=== PATIENT | female | born 1940 | race Hispanic/Latino ===

== ENCOUNTER 2019-07-10 11:11 | Inpatient (IN) | payer MEDICARE, OTHER ==
[2019-07-10] MEDS ORDERED: FUROSEMIDE 40 MG/4 ML INJ ONE (11:16)
[2019-07-10] MEDS ORDERED: FUROSEMIDE 40 MG/4 ML INJ IV ONE (11:19)
[2019-07-10] MEDS ORDERED: dilTIAZem 25 MG/5 ML INJ ONE (11:36)
[2019-07-10] MEDS ORDERED: dilTIAZem 25 MG/5 ML INJ IV ONE (11:39)
[2019-07-10] MEDS ORDERED: AMIODARONE 150 MG/3 ML INJ IV ONE (11:41)
[2019-07-10] MEDS ORDERED: AMIODARONE 150 MG in DEXTROSE 5% IN WATER 97 ML IV ONE (11:41)
--- NOTE | 2019-07-10 11:52 | Emergency Department Report ---
ED Shortness of Breath HPI - General Stated Complaint: PARTH Time Seen by Provider: 07/10/19 11:17 - History of Present Illness Initial Comments: This is a 78 year old female who is largely unknown to this facility. Rising respiratory distress. Apparently she called the ambulance while her family was out. Paramedics found the patient to have a pulse oximetry of 82% on room air and struggling to breathe. Her blood pressure was somewhat elevated but her glucose was less than 200. They gave her nitroglycerin but not Lasix and an albuterol treatment. They placed her on CPAP and transported her to the nearest facility. On arrival the patient can answer directed questions by nodding her head but cannot speak in full sentences. She is on Coumadin for atrial fibrillation. She has a history of congestive heart failure. She is status post bilateral mastectomies. She cannot tell me if the cancer has affected her lungs or spreading on my initial encounter. History is quite limited. She states to negative concerning acute chest pain. Later when the family arrives they state that she had shortness of breath since last night. Apparently she had some yellow sputum this morning. There is no fever or chills observed. She has no history of venous thromboembolism. The daughter who is a nurse believes the patient would not want to be intubated. The patient was placed on BiPAP on her arrival. He was given Lasix IV. Complaint: shortness of breath -: hour(s) Known History Of: congestive heart failure, other (atrial fibrillation on Coumadin) Context: recent URI (possibly) Associated Symptoms: denies other symptoms (Limited history) - Related Data Allergies Allergy/AdvReac Type Severity Reaction Status Date / Time meperidine [From Demerol] Allergy Anaphylaxis Verified 07/10/19 12:26 Penicillins Allergy Anaphylaxis Verified 07/10/19 12:25 ED Review of Systems ROS: Stated complaint: PARTH Other details as noted in HPI Comment: Unobtainable due to pts medical conditions (largely not) ED Past Medical Hx - Past Medical History Previous Medical History?: Yes Hx Congestive Heart Failure: Yes Hx Diabetes: Yes Additional medical history: Atrial fibrillation. Family thinks the breast cancer has not spread. No history of prior intubation except for surgery. - Social History Smoking Status: Unknown if ever smoked Substance Use Type: None ED Physical Exam - General Limitations: Altered Mental Status General appearance: alert, other (respiratory distress) - Head Head exam: Present: atraumatic, normocephalic - Eye Eye exam: Present: normal appearance. Absent: scleral icterus - ENT ENT exam: Present: mucous membranes moist - Neck Neck exam: Present: normal inspection. Absent: meningismus - Respiratory Respiratory exam: Present: respiratory distress, rales (bilateral noising), accessory muscle use - Cardiovascular Cardiovascular Exam: Present: tachycardia, irregular rhythm. Absent: systolic murmur, diastolic murmur, rubs, gallop - GI/Abdominal GI/Abdominal exam: Present: soft, normal bowel sounds. Absent: distended, tenderness, guarding, rebound - Extremities Exam Extremities exam: Present: other (symmetrical ankle edema family states is normal secondary to previous fracture) - Back Exam Back exam: Present: normal inspection - Neurological Exam Neurological exam: Present: altered (probably secondary to respiratory distress), CN II-XII intact (grossly). Absent: motor sensory deficit (exam limited) - Psychiatric Psychiatric exam: Present: anxious, flat affect - Skin Skin exam: Present: warm, dry, intact, normal color. Absent: rash ED Course Vital Signs 07/10/19 07/10/19 07/10/19 11:30 11:31 11:34 Temperature 98.4 F Pulse Rate 123 H 128 H 132 H Respiratory 46 H 44 H 33 H Rate Blood Pressure 173/75 143/72 147/43 Blood Pressure 173/75 [Left] O2 Sat by Pulse 97 98 100 Oximetry 07/10/19 07/10/19 07/10/19 11:40 11:45 11:50 Temperature Pulse Rate 116 H Respiratory 27 H 46 H Rate Blood Pressure 159/66 147/43 Blood Pressure [Left] O2 Sat by Pulse 98 94 Oximetry 07/10/19 07/10/19 07/10/19 11:59 12:01 12:31 Temperature Pulse Rate 116 H 99 H 94 H Respiratory 27 H 46 H 31 H Rate Blood Pressure 147/43 147/43 147/43 Blood Pressure [Left] O2 Sat by Pulse 98 99 100 Oximetry - Reevaluation(s) Reevaluation #1: The patient is continued on noninvasive positive pressure ventilation. She is showing some improvement. Attempts at rate control with diltiazem and amiodarone. Family states that beta blockers have previously worsened the patient's condition and that she is not on them now. She takes digoxin they state. Is no known history of renal insufficiency. 07/10/19 11:54 Reevaluation #2: It should be making good progress with the above meds, BiPAP. Arterial blood gas within acceptable limits. Work of breathing has improved. The patient is not anticipated at this point. 07/10/19 12:15 Reevaluation #3: PE twelve-lead EKG shows persistent atrial fibrillation now with rate improvement at approximately 100. Occasional aberrant conducted beats. LDH with typical associated repolarization abnormality and axis. Cannot exclude but does not suggest ischemia. 07/10/19 12:16 Reevaluation #4: Patient continued to improve with treatment for CHF and rate control. She remains on BiPAP. I can't exclude a right middle lobe pneumonia. Lactic acid level is 3.7. She was given meropenem and azithromycin. Further antibiotic choices and treatment per Dr. Garner. 07/10/19 12:49 ED Medical Decision Making - Lab Data Result diagrams: 07/10/19 11:45 07/10/19 11:45 Laboratory Results - last 24 hr 07/10/19 07/10/19 07/10/19 11:45 11:45 11:45 WBC 12.5 H RBC 3.56 L Hgb 9.5 L Hct 29.9 L MCV 84 MCH 27 L MCHC 32 RDW 15.6 H Plt Count 181 Lymph % (Auto) 5.2 L [place] % (Auto) 4.6 Eos % (Auto) 0.3 Baso % (Auto) 0.8 Lymph # 0.7 L [place] # 0.6 Eos # 0.0 Baso # 0.1 Seg Neutrophils % 89.1 H Seg Neutrophils # 11.2 H PT 31.5 H INR 3.11 H POC ABG pH POC ABG pCO2 POC ABG pO2 POC ABG HCO3 POC ABG Total CO2 POC ABG O2 Sat POC ABG Base Excess VBG pH 7.272 L FiO2 07/10/19 12:03 WBC RBC Hgb Hct MCV MCH MCHC RDW Plt Count Lymph % (Auto) [place] % (Auto) Eos % (Auto) Baso % (Auto) Lymph # [place] # Eos # Baso # Seg Neutrophils % Seg Neutrophils # PT INR POC ABG pH 7.363 POC ABG pCO2 34.3 L POC ABG pO2 100 POC ABG HCO3 19.5 POC ABG Total CO2 21 POC ABG O2 Sat 98 POC ABG Base Excess -6 VBG pH FiO2 60 Laboratory Results - last 24 hr 07/10/19 07/10/19 07/10/19 11:45 11:45 11:45 WBC 12.5 H RBC 3.56 L Hgb 9.5 L Hct 29.9 L MCV 84 MCH 27 L MCHC 32 RDW 15.6 H Plt Count 181 Lymph % (Auto) 5.2 L [place] % (Auto) 4.6 Eos % (Auto) 0.3 Baso % (Auto) 0.8 Lymph # 0.7 L [place] # 0.6 Eos # 0.0 Baso # 0.1 Seg Neutrophils % 89.1 H Seg Neutrophils # 11.2 H PT 31.5 H INR 3.11 H POC ABG pH POC ABG pCO2 POC ABG pO2 POC ABG HCO3 POC ABG Total CO2 POC ABG O2 Sat POC ABG Base Excess VBG pH 7.272 L FiO2 Blood Type 07/10/19 07/10/19 11:45 12:03 WBC RBC Hgb Hct MCV MCH MCHC RDW Plt Count Lymph % (Auto) [place] % (Auto) Eos % (Auto) Baso % (Auto) Lymph # [place] # Eos # Baso # Seg Neutrophils % Seg Neutrophils # PT INR POC ABG pH 7.363 POC ABG pCO2 34.3 L POC ABG pO2 100 POC ABG HCO3 19.5 POC ABG Total CO2 21 POC ABG O2 Sat 98 POC ABG Base Excess -6 VBG pH FiO2 60 Blood Type B POSITIVE Laboratory Results - last 24 hr 07/10/19 07/10/19 07/10/19 11:45 11:45 11:45 WBC 12.5 H RBC 3.56 L Hgb 9.5 L Hct 29.9 L MCV 84 MCH 27 L MCHC 32 RDW 15.6 H Plt Count 181 Lymph % (Auto) 5.2 L [place] % (Auto) 4.6 Eos % (Auto) 0.3 Baso % (Auto) 0.8 Lymph # 0.7 L [place] # 0.6 Eos # 0.0 Baso # 0.1 Seg Neutrophils % 89.1 H Seg Neutrophils # 11.2 H PT 31.5 H INR 3.11 H POC ABG pH POC ABG pCO2 POC ABG pO2 POC ABG HCO3 POC ABG Total CO2 POC ABG O2 Sat POC ABG Base Excess VBG pH FiO2 Sodium 131 L Potassium 4.4 Chloride 92.4 L Carbon Dioxide 19 L Anion Gap 24 BUN 20 H Creatinine 1.4 H Estimated GFR 36 BUN/Creatinine Ratio 14 Glucose 370 H Calcium 9.0 Magnesium Total Bilirubin Direct Bilirubin Indirect Bilirubin AST ALT Alkaline Phosphatase Total Creatine Kinase CK-MB (CK-2) CK-MB (CK-2) Rel Index Troponin T NT-Pro-B Natriuret Pep Total Protein Albumin Albumin/Globulin Ratio Blood Type 07/10/19 07/10/19 07/10/19 11:45 11:45 11:45 WBC RBC Hgb Hct MCV MCH MCHC RDW Plt Count Lymph % (Auto) [place] % (Auto) Eos % (Auto) Baso % (Auto) Lymph # [place] # Eos # Baso # Seg Neutrophils % Seg Neutrophils # PT INR POC ABG pH POC ABG pCO2 POC ABG pO2 POC ABG HCO3 POC ABG Total CO2 POC ABG O2 Sat POC ABG Base Excess VBG pH 7.272 L FiO2 Sodium Potassium Chloride Carbon Dioxide Anion Gap BUN Creatinine Estimated GFR BUN/Creatinine Ratio Glucose Calcium Magnesium 2.10 Total Bilirubin 0.80 Direct Bilirubin 0.4 H Indirect Bilirubin 0.4 AST 33 ALT 19 Alkaline Phosphatase 83 Total Creatine Kinase 40 CK-MB (CK-2) 1.4 CK-MB (CK-2) Rel Index 3.5 Troponin T < 0.010 NT-Pro-B Natriuret Pep 1548 H Total Protein 8.0 Albumin 4.2 Albumin/Globulin Ratio 1.1 Blood Type B POSITIVE 07/10/19 12:03 WBC RBC Hgb Hct MCV MCH MCHC RDW Plt Count Lymph % (Auto) [place] % (Auto) Eos % (Auto) Baso % (Auto) Lymph # [place] # Eos # Baso # Seg Neutrophils % Seg Neutrophils # PT INR POC ABG pH 7.363 POC ABG pCO2 34.3 L POC ABG pO2 100 POC ABG HCO3 19.5 POC ABG Total CO2 21 POC ABG O2 Sat 98 POC ABG Base Excess -6 VBG pH FiO2 60 Sodium Potassium Chloride Carbon Dioxide Anion Gap BUN Creatinine Estimated GFR BUN/Creatinine Ratio Glucose Calcium Magnesium Total Bilirubin Direct Bilirubin Indirect Bilirubin AST ALT Alkaline Phosphatase Total Creatine Kinase CK-MB (CK-2) CK-MB (CK-2) Rel Index Troponin T NT-Pro-B Natriuret Pep Total Protein Albumin Albumin/Globulin Ratio Blood Type Laboratory Results - last 24 hr 07/10/19 07/10/19 07/10/19 11:45 11:45 11:45 WBC 12.5 H RBC 3.56 L Hgb 9.5 L Hct 29.9 L MCV 84 MCH 27 L MCHC 32 RDW 15.6 H Plt Count 181 Lymph % (Auto) 5.2 L [place] % (Auto) 4.6 Eos % (Auto) 0.3 Baso % (Auto) 0.8 Lymph # 0.7 L [place] # 0.6 Eos # 0.0 Baso # 0.1 Seg Neutrophils % 89.1 H Seg Neutrophils # 11.2 H PT 31.5 H INR 3.11 H POC ABG pH POC ABG pCO2 POC ABG pO2 POC ABG HCO3 POC ABG Total CO2 POC ABG O2 Sat POC ABG Base Excess VBG pH FiO2 Sodium 131 L Potassium 4.4 Chloride 92.4 L Carbon Dioxide 19 L Anion Gap 24 BUN 20 H Creatinine 1.4 H Estimated GFR 36 BUN/Creatinine Ratio 14 Glucose 370 H Lactic Acid Calcium 9.0 Magnesium Total Bilirubin Direct Bilirubin Indirect Bilirubin AST ALT Alkaline Phosphatase Total Creatine Kinase CK-MB (CK-2) CK-MB (CK-2) Rel Index Troponin T NT-Pro-B Natriuret Pep Total Protein Albumin Albumin/Globulin Ratio Blood Type 07/10/19 07/10/19 07/10/19 11:45 11:45 11:45 WBC RBC Hgb Hct MCV MCH MCHC RDW Plt Count Lymph % (Auto) [place] % (Auto) Eos % (Auto) Baso % (Auto) Lymph # [place] # Eos # Baso # Seg Neutrophils % Seg Neutrophils # PT INR POC ABG pH POC ABG pCO2 POC ABG pO2 POC ABG HCO3 POC ABG Total CO2 POC ABG O2 Sat POC ABG Base Excess VBG pH 7.272 L FiO2 Sodium Potassium Chloride Carbon Dioxide Anion Gap BUN Creatinine Estimated GFR BUN/Creatinine Ratio Glucose Lactic Acid 3.70 H* Calcium Magnesium 2.10 Total Bilirubin 0.80 Direct Bilirubin 0.4 H Indirect Bilirubin 0.4 AST 33 ALT 19 Alkaline Phosphatase 83 Total Creatine Kinase 40 CK-MB (CK-2) 1.4 CK-MB (CK-2) Rel Index 3.5 Troponin T < 0.010 NT-Pro-B Natriuret Pep 1548 H Total Protein 8.0 Albumin 4.2 Albumin/Globulin Ratio 1.1 Blood Type 07/10/19 07/10/19 11:45 12:03 WBC RBC Hgb Hct MCV MCH MCHC RDW Plt Count Lymph % (Auto) [place] % (Auto) Eos % (Auto) Baso % (Auto) Lymph # [place] # Eos # Baso # Seg Neutrophils % Seg Neutrophils # PT INR POC ABG pH 7.363 POC ABG pCO2 34.3 L POC ABG pO2 100 POC ABG HCO3 19.5 POC ABG Total CO2 21 POC ABG O2 Sat 98 POC ABG Base Excess -6 VBG pH FiO2 60 Sodium Potassium Chloride Carbon Dioxide Anion Gap BUN Creatinine Estimated GFR BUN/Creatinine Ratio Glucose Lactic Acid Calcium Magnesium Total Bilirubin Direct Bilirubin Indirect Bilirubin AST ALT Alkaline Phosphatase Total Creatine Kinase CK-MB (CK-2) CK-MB (CK-2) Rel Index Troponin T NT-Pro-B Natriuret Pep Total Protein Albumin Albumin/Globulin Ratio Blood Type B POSITIVE - EKG Data -: EKG Interpreted by Or - EKG Data Interpretation: other (atrial fibrillation PVCs versus aberrant conduction and nonspecific ST-T wave changes axis is leftward no evidence for ST elevation [place] ocean artifact.) - Radiology Data Radiology results: image reviewed (chest x-ray shows cardiomegaly and pulmonary edema which is somewhat asymmetrical affecting the right middle lobe more. I do not think this is an infectious process but that can't be completely excluded.) Critical Care Time: Yes Critical care time in (mins) excluding proc time.: 90 Critical care attestation.: If time is entered above; I have spent that time in minutes in the direct care of this critically ill patient, excluding procedure time. ED Disposition Clinical Impression: Respiratory distress, Hypoxia, Right middle lobe pulmonary infiltrate, Elevated lactic acid level, Atrial fibrillation with RVR CHF (congestive heart failure) Qualifiers: Heart failure type: combined systolic and diastolic Heart failure chronicity: acute on chronic Qualified Code(s): I50.43 - Acute on chronic combined systolic (congestive) and diastolic (congestive) heart failure Hyperglycemia due to type 2 diabetes mellitus Qualifiers: Diabetes mellitus correction insulin use: with intermodal dispatcher use Qualified Code(s): E11.65 - Type 2 diabetes mellitus with hyperglycemia; Z79.4 - local intermodal truck driver (current) use of insulin Anemia Qualifiers: Anemia type: unspecified type Qualified Code(s): D64.9 - Anemia, unspecified Respiratory failure Qualifiers: Chronicity: acute Respiratory failure complication: hypoxia Qualified Code(s): J96.01 - Acute respiratory failure with hypoxia Disposition: 09 OP ADMIT IP TO THIS HOSP Is pt being admited?: Yes Does the pt Need Aspirin: Yes Condition: Stable Instructions: Diabetes Mellitus Type 2 in Adults (ED) Referrals: RICKY LEO MD [Referring] - 3-5 Days Time of Disposition: 12:54
--- NOTE | 2019-07-10 11:52 | XRay Report ---
CHEST 1 VIEW 11:27 AM INDICATION / CLINICAL INFORMATION: Possible sepsis. Shortness of breath and CHF. COMPARISON: None available. FINDINGS: SUPPORT DEVICES: None. HEART / MEDIASTINUM: There is mild cardiomegaly and prominence of the central pulmonary vessels. LUNGS / PLEURA: Interstitial lung markings are mildly increased in both perihilar regions, greater on the left, and in both lower lung zones. There is more focal mild patchy parenchymal disease in the r ight perihilar region and left lung base. There are trace pleural effusions. No pneumothorax. ADDITIONAL FINDINGS: There are old healed right rib fractures. Surgical clips are present in both axi llary regions. IMPRESSION: 1. Cardiomegaly and mild congestive heart failure. 2. More focal parenchymal disease in the right midlung may be related to asymmetric edema or pneumoni a. 3. Mild left basilar subsegmental atelectasis. Signer Name: Uziel Gunter MD Signed: 07/10/2019 11:48 AM Workstation Name: [id number]
[2019-07-10 12:00] LABS: Basophils # (Auto) 0.1 K/mm3 (0.0-0.1); Basophils % (Auto) 0.8 % (0.0-1.8); Eosinophils % (Auto) 0.3 % (0.0-4.3); Hematocrit 29.9 % (30.3-42.9); Hemoglobin 9.5 gm/dl (10.1-14.3); Lymphocytes # (Auto) 0.7 K/mm3 (1.2-5.4); Lymphocytes % (Auto) 5.2 % (13.4-35.0); Mean Corpuscular HGB Conc 32 % (30-34); Mean Corpuscular Volume 84 fl (79-97); Monocytes # (Auto) 0.6 K/mm3 (0.0-0.8); Monocytes % (Auto) 4.6 % (0.0-7.3); Platelet Count 181 K/mm3 (140-440); Red Blood Count 3.56 M/mm3 (3.65-5.03); Red Cell Distribution Width 15.6 % (13.2-15.2)
[2019-07-10 12:14] LABS: INR 3.11 (0.87-1.13)
[2019-07-10 12:25] LABS: Creatine Kinase MB 1.4 ng/mL (0.0-4.0)
[2019-07-10 12:27] LABS: Alanine Aminotransferase 19 units/L (7-56); Albumin 4.2 g/dL (3.9-5); Bilirubin,Direct 0.4 mg/dL (0-0.2)
[2019-07-10 12:38] LABS: Partial Thromboplastin Time 43.9 Sec. (24.2-36.6)
[2019-07-10] MEDS ORDERED: MEROPENEM/NS 1 GRAM/100 ML 1 GRAM/100 ML BAG IV ONE (12:38)
[2019-07-10] MEDS ORDERED: INSULIN REGULAR, HUMAN 100 UNITS/1 ML IV ONE (12:48)
[2019-07-10] MEDS ORDERED: ASPIRIN 325 MG TAB PO ONE (12:54)
[2019-07-10 12:56] LABS: Bacteria,Urine 1+ /HPF (Negative); Bilirubin,Urine NEG (Negative); Blood,Urine SM (Negative); Color,Urine Amber (Yellow); Mucus,Urine FEW /HPF; Urobilinogen,Urine < 2.0 mg/dL (<2.0)
[2019-07-10] MEDS ORDERED: AZITHROMYCIN 500 MG in SODIUM CHLORIDE 0.9% 250ML 250 ML IV ONE (13:00)
[2019-07-10] MEDS: dilTIAZem/D5W 100 MG/100 ML BAG IV SCH (13:04)
[2019-07-10] MEDS ORDERED: ASPIRIN 325 MG TAB ONE (15:10)
[2019-07-10] MEDS ORDERED: HYDROmorphone 1 MG/1 ML INJ IV PRN (19:06)
[2019-07-10] MEDS ORDERED: METOCLOPRAMIDE 10 MG/2 ML INJ IV PRN (19:06)
[2019-07-10] MEDS ORDERED: ONDANSETRON 4 MG/2 ML INJ IV PRN (19:06)
[2019-07-10] MEDS ORDERED: ACETAMINOPHEN 325 MG TAB PO PRN (19:06)
[2019-07-10] MEDS ORDERED: ALBUTEROL 2.5 MG/3 ML NEBU IH PRN (19:08)
[2019-07-10] MEDS ORDERED: SODIUM CHLORIDE 0.9% 1000 ML 1,000 ML IV SCH (20:00)
[2019-07-10] MEDS: CEFEPIME/NS 2 GM/100 ML 2 GM/100 ML BAG IV SCH (20:05)
[2019-07-10] MEDS: IPRATROPIUM/ALBUTEROL SULFATE 3 ML AMPUL.NEB IH SCH (20:24)
[2019-07-10] MEDS: FAMOTIDINE 20 MG/2 ML INJ IV SCH (21:22)
[2019-07-10] MEDS: methylPREDNISolone Sod Succinate 125 MG/2 ML INJ IV SCH (21:23)
[2019-07-10] MEDS ORDERED: CEFEPIME/NS 2 GM/100 ML 2 GM/100 ML BAG IV SCH (22:00)
[2019-07-11] MEDS: oxyCODONE /ACETAMINOPHEN 5-325MG TAB PO PRN (02:27)
[2019-07-11 05:34] LABS: Hematocrit 28.2 % (30.3-42.9); Hemoglobin 9.1 gm/dl (10.1-14.3); Mean Corpuscular HGB Conc 32 % (30-34); Mean Corpuscular Volume 85 fl (79-97); Platelet Count 125 K/mm3 (140-440); Red Blood Count 3.34 M/mm3 (3.65-5.03); Red Cell Distribution Width 15.7 % (13.2-15.2)
[2019-07-11 05:44] LABS: Albumin 3.5 g/dL (3.9-5); Calcium 8.8 mg/dL (8.4-10.2)
[2019-07-11] MEDS: methylPREDNISolone Sod Succinate 125 MG/2 ML INJ IV SCH (06:09)
[2019-07-11 06:23] LABS: Basophils % (Manual) 0 % (0.0-1.8); Eosinophils % (Manual) 0 % (0.0-4.3); RBC Morphology Normal; Total Cells Counted 100
--- NOTE | 2019-07-11 07:30 | History and Physical Report ---
History of Present Illness Date of examination: 07/10/19 Date of admission: 07/10/19 12:56 Chief complaint: Increasong SOB for 1 day History of present illness: 78 year old female comes in for increasong respiratory distress. She called the ambulance while her family was out. Paramedics found the patient to have a pulse oximetry of 82% on room air and struggling to breathe. Her blood pressure was somewhat elevated but her glucose was less than 200. They gave her nitroglycerin but not Lasix and an albuterol treatment. They placed her on CPAP and transported her to the nearest facility. On arrival the patient can answer directed questions by nodding her head but cannot speak in full sentences. She is on Coumadin for atrial fibrillation. She has a history of congestive heart failure. She is status post bilateral mastectomies. Later when the family arrives they state that she had shortness of breath since last night. Apparently she had some yellow sputum this morning. There is no fever or chills observed. She has no history of venous thromboembolism. The daughter who is a nurse believes the patient would not want to be intubated. The patient was placed on BiPAP on her arrival. She was given Lasix IV. Past Medical History Previous Medical History?: Yes Congestive Heart Failure: Yes Diabetes Atrial fibrillation. Breast cancer--No metastases Social History Smoking Status: Stopped smoking [id number] Substance Use Type: None Surgical History Fitz Mastectomies Family History HTN Review of Systems ROS: Stated complaint: PARTH Other details as noted in HPI Comment: Unobtainable due to pts medical conditions (largely not) Medications and Allergies Allergies Allergy/AdvReac Type Severity Reaction Status Date / Time meperidine [From Demerol] Allergy Anaphylaxis Verified 07/10/19 12:26 Penicillins Allergy Anaphylaxis Verified 07/10/19 12:25 Home Medications Medication Instructions Recorded Confirmed Last Taken Type Calcium + Vitamin D3 Gummies 1 tab PO QDAY 07/10/19 07/10/19 Unknown History Digoxin [Lanoxin] 0.25 mg PO DAILY 07/10/19 07/10/19 Unknown History Furosemide [Lasix] 20 mg PO QDAY 07/10/19 07/10/19 Unknown History Insulin Glargine,Hum.rec.anlog 35 unit SQ QDAY 07/10/19 07/10/19 Unknown History [Lantus Solostar] Metformin HCl [metFORMIN] 1,000 mg PO BID 07/10/19 07/10/19 Unknown History Multivitamin 1 tab PO QDAY 07/10/19 07/10/19 Unknown History Olmesartan (Nf) 2 tab QDAY 07/10/19 07/10/19 Unknown History Potassium Chloride [K-Dur] 1 tab PO QDAY 07/10/19 07/10/19 Unknown History Warfarin [Coumadin] 5 mg PO QDAY 07/10/19 07/10/19 Unknown History Warfarin [Coumadin] 7.5 mg PO QDAY 07/10/19 07/10/19 Unknown History traMADol [Ultram] 50 mg PO Q12HR PRN 07/10/19 07/10/19 Unknown History Active Meds: Active Medications Acetaminophen (Tylenol) 650 mg PO Q4H PRN PRN Reason: Pain MILD(1-3)/Fever >100.5/SPICER Albuterol (Proventil) 2.5 mg IH Q4H PRN PRN Reason: Shortness Of Breath Albuterol/Ipratropium (Duoneb *Not For Prn Use*) 1 ampul IH QIDRT [facility] Last Admin: 07/10/19 20:24 Dose: 1 ampul Documented by: Famotidine (Pepcid) 10 mg IV BID [facility] Last Admin: 07/10/19 21:22 Dose: 10 mg Documented by: Hydromorphone HCl (Dilaudid) 0.5 mg IV Q3H PRN PRN Reason: Pain , Severe (7-10) Diltiazem HCl (Cardizem/D5w 100mg/100ml) 100 mg in 100 mls @ 5 mls/hr IV TITR [facility]; Protocol Last Titration: 07/10/19 20:53 Dose: 0 mg/hr, 0 mls/hr Documented by: Sodium Chloride (Nacl 0.9% 1000 Ml) 1,000 mls @ 42 mls/hr IV DIRECT [facility] Cefepime HCl (Maxipime/Ns 2 Gm/100 Ml) 2 gm in 100 mls @ 200 mls/hr IV Q12H [facility] Last Admin: 07/10/19 20:05 Dose: 200 mls/hr Documented by: Methylprednisolone Sodium Succinate (Solu-Medrol) 125 mg IV Q8HR [facility] Last Admin: 07/11/19 06:09 Dose: 125 mg Documented by: Metoclopramide HCl (Reglan) 10 mg IV Q6H PRN PRN Reason: Nausea And Vomiting Ondansetron HCl (Zofran) 4 mg IV Q8H PRN PRN Reason: Nausea And Vomiting Oxycodone/Acetaminophen (Percocet 5/325) 1 tab PO Q6H PRN PRN Reason: Pain, Moderate (4-6) Last Admin: 07/11/19 02:27 Dose: 1 tab Documented by: Sodium Chloride (Sodium Chloride Flush Syringe 10 Ml) 10 ml IV BID [facility] Last Admin: 07/11/19 02:32 Dose: 10 ml Documented by: Sodium Chloride (Sodium Chloride Flush Syringe 10 Ml) 10 ml IV PRN PRN PRN Reason: LINE FLUSH Exam - Constitutional Vitals: Temp Pulse Resp BP Pulse Ox 98.1 F 67 20 122/55 100 07/11/19 04:00 07/11/19 06:01 07/11/19 06:01 07/11/19 06:01 07/11/19 06:01 General appearance: Present: severe distress, well-nourished - EENT Eyes: Present: PERRL ENT: hearing intact, clear oral mucosa - Neck Neck: Present: supple, normal ROM - Respiratory Respiratory effort: normal Respiratory: bilateral: diminished, rales, rhonchi - Cardiovascular Heart rate: 100 Rhythm: regular Heart Sounds: Present: S1 & S2. Absent: rub, click - Extremities Extremities: no ischemia, pulses intact, pulses symmetrical, No edema Peripheral Pulses: within normal limits - Abdominal General gastrointestinal: Present: soft, non-tender, non-distended, normal bowel sounds Female genitourinary: Present: normal - Rectal Rectal Exam: deferred - Integumentary Integumentary: Present: clear, warm, dry - Musculoskeletal Musculoskeletal: gait normal, strength equal bilaterally - Psychiatric Psychiatric: appropriate mood/affect, intact judgment & insight - Neurologic Neurologic: CNII-XII intact, moves all extremities - Allied Health Allied health notes reviewed: nursing, case management Results - Labs CBC & Chem 7: 07/11/19 04:34 07/11/19 04:34 Labs: Laboratory Last Values WBC 7.2 K/mm3 (4.5-11.0) 07/11/19 04:34 RBC 3.34 M/mm3 (3.65-5.03) L 07/11/19 04:34 Hgb 9.1 gm/dl (10.1-14.3) L 07/11/19 04:34 Hct 28.2 % (30.3-42.9) L 07/11/19 04:34 MCV 85 fl (79-97) 07/11/19 04:34 MCH 27 pg (28-32) L 07/11/19 04:34 MCHC 32 % (30-34) 07/11/19 04:34 RDW 15.7 % (13.2-15.2) H 07/11/19 04:34 Plt Count 125 K/mm3 (140-440) L 07/11/19 04:34 Lymph % (Auto) 5.2 % (13.4-35.0) L 07/10/19 11:45 [place] % (Auto) 4.6 % (0.0-7.3) 07/10/19 11:45 Eos % (Auto) 0.3 % (0.0-4.3) 07/10/19 11:45 Baso % (Auto) 0.8 % (0.0-1.8) 07/10/19 11:45 Lymph # 0.7 K/mm3 (1.2-5.4) L 07/10/19 11:45 [place] # 0.6 K/mm3 (0.0-0.8) 07/10/19 11:45 Eos # 0.0 K/mm3 (0.0-0.4) 07/10/19 11:45 Baso # 0.1 K/mm3 (0.0-0.1) 07/10/19 11:45 Add Manual Diff Complete 07/11/19 04:34 Total Counted 100 07/11/19 04:34 Seg Neutrophils % Signals Intelligence Analyst 07/11/19 04:34 Seg Neuts % (Manual) 93.0 % (40.0-70.0) H 07/11/19 04:34 0 % 07/11/19 04:34 4.0 % (13.4-35.0) L 07/11/19 04:34 Reactive Lymphs % (Man) 0 % 07/11/19 04:34 3.0 % (0.0-7.3) 07/11/19 04:34 0 % (0.0-4.3) 07/11/19 04:34 0 % (0.0-1.8) 07/11/19 04:34 0 % 07/11/19 04:34 0 % 07/11/19 04:34 0 % 07/11/19 04:34 0 % 07/11/19 04:34 Nucleated RBC % Not Reportable 07/11/19 04:34 Seg Neutrophils # 11.2 K/mm3 (1.8-7.7) H 07/10/19 11:45 Seg Neutrophils # Man 6.7 K/mm3 (1.8-7.7) 07/11/19 04:34 Band Neutrophils # 0.0 K/mm3 07/11/19 04:34 0.3 K/mm3 (1.2-5.4) L 07/11/19 04:34 Abs React Lymphs (Man) 0.0 K/mm3 07/11/19 04:34 0.2 K/mm3 (0.0-0.8) 07/11/19 04:34 0.0 K/mm3 (0.0-0.4) 07/11/19 04:34 0.0 K/mm3 (0.0-0.1) 07/11/19 04:34 0.0 K/mm3 07/11/19 04:34 0.0 K/mm3 07/11/19 04:34 0.0 K/mm3 07/11/19 04:34 Blast Cells # 0.0 K/mm3 07/11/19 04:34 WBC Morphology Not Reportable 07/11/19 04:34 Hypersegmented Neuts Not Reportable 07/11/19 04:34 Hyposegmented Neuts Not Reportable 07/11/19 04:34 Hypogranular Neuts Not Reportable 07/11/19 04:34 Not Reportable 07/11/19 04:34 Not Reportable 07/11/19 04:34 Not Reportable 07/11/19 04:34 Not Reportable 07/11/19 04:34 Not Reportable 07/11/19 04:34 Not Reportable 07/11/19 04:34 Not Reportable 07/11/19 04:34 Not Reportable 07/11/19 04:34 Plt Clumps, EDTA Not Reportable 07/11/19 04:34 Not Reportable 07/11/19 04:34 Not Reportable 07/11/19 04:34 Not Reportable 07/11/19 04:34 Plt Morphology Comment Not Reportable 07/11/19 04:34 RBC Morphology Normal 07/11/19 04:34 Dimorphic RBCs Not Reportable 07/11/19 04:34 Not Reportable 07/11/19 04:34 Not Reportable 07/11/19 04:34 Not Reportable 07/11/19 04:34 Not Reportable 07/11/19 04:34 Not Reportable 07/11/19 04:34 Not Reportable 07/11/19 04:34 Not Reportable 07/11/19 04:34 Not Reportable 07/11/19 04:34 Not Reportable 07/11/19 04:34 Not Reportable 07/11/19 04:34 Not Reportable 07/11/19 04:34 Not Reportable 07/11/19 04:34 Not Reportable 07/11/19 04:34 Not Reportable 07/11/19 04:34 Not Reportable 07/11/19 04:34 Not Reportable 07/11/19 04:34 Not Reportable 07/11/19 04:34 Not Reportable 07/11/19 04:34 Not Reportable 07/11/19 04:34 Acanthocytes (Spur) Not Reportable 07/11/19 04:34 Rouleaux Not Reportable 07/11/19 04:34 Not Reportable 07/11/19 04:34 Not Reportable 07/11/19 04:34 Not Reportable 07/11/19 04:34 Not Reportable 07/11/19 04:34 Hem Pathologist Commnt No 07/11/19 04:34 PT 31.5 Sec. (12.2-14.9) H 07/10/19 11:45 INR 3.11 (0.87-1.13) H 07/10/19 11:45 APTT 43.9 Sec. (24.2-36.6) H 07/10/19 11:45 POC ABG pH 7.363 (7.35-7.45) 07/10/19 12:03 POC ABG pCO2 34.3 (35-45) L 07/10/19 12:03 POC ABG pO2 100 (80-105) 07/10/19 12:03 POC ABG HCO3 19.5 (22-26 mml/L) 07/10/19 12:03 POC ABG Total CO2 21 (23-27mmol/L) 07/10/19 12:03 POC ABG O2 Sat 98 07/10/19 12:03 POC ABG Base Excess -6 ((-2) - (+3)mmol/L) 07/10/19 12:03 VBG pH 7.272 (7.320-7.420) L 07/10/19 11:45 60 % 07/10/19 12:03 Sodium 132 mmol/L (137-145) L 07/11/19 04:34 Potassium 5.5 mmol/L (3.6-5.0) H D 07/11/19 04:34 Chloride 98.7 mmol/L (98-107) 07/11/19 04:34 Carbon Dioxide 22 mmol/L (22-30) 07/11/19 04:34 17 mmol/L 07/11/19 04:34 BUN 25 mg/dL (7-17) H 07/11/19 04:34 1.5 mg/dL (0.7-1.2) H 07/11/19 04:34 Estimated GFR 34 ml/min 07/11/19 04:34 17 % 07/11/19 04:34 Glucose 236 mg/dL (65-100) H 07/11/19 04:34 POC Glucose 202 (70-105) H 07/10/19 21:43 6.5 % (4-6) H 07/10/19 19:49 Lactic Acid 2.70 mmol/L (0.7-2.0) H* 07/10/19 13:34 Calcium 8.8 mg/dL (8.4-10.2) 07/11/19 04:34 Magnesium 2.10 mg/dL (1.7-2.3) 07/10/19 11:45 0.80 mg/dL (0.1-1.2) 07/11/19 04:34 0.4 mg/dL (0-0.2) H 07/10/19 11:45 0.4 mg/dL 07/10/19 11:45 AST 29 units/L (5-40) 07/11/19 04:34 ALT 16 units/L (7-56) 07/11/19 04:34 65 units/L (35-129) 07/11/19 04:34 40 units/L (30-135) 07/10/19 11:45 CK-MB (CK-2) 1.4 ng/mL (0.0-4.0) 07/10/19 11:45 CK-MB (CK-2) Rel Index 3.5 (0-4) 07/10/19 11:45 < 0.010 ng/mL (0.00-0.029) 07/10/19 11:45 NT-Pro-B Natriuret Pep 1548 pg/mL (0-900) H 07/10/19 11:45 7.5 g/dL (6.3-8.2) 07/11/19 04:34 3.5 g/dL (3.9-5) L 07/11/19 04:34 0.9 % 07/11/19 04:34 Leida (Yellow) 07/10/19 12:12 Cloudy (Clear) 07/10/19 12:12 5.0 (5.0-7.0) 07/10/19 12:12 Ur Specific May 1.017 (1.003-1.030) 07/10/19 12:12 100 mg/dl mg/dL (Negative) 07/10/19 12:12 50 mg/dL (Negative) 07/10/19 12:12 Neg mg/dL (Negative) 07/10/19 12:12 Sm (Negative) 07/10/19 12:12 Neg (Negative) 07/10/19 12:12 Neg (Negative) 07/10/19 12:12 < 2.0 mg/dL (<2.0) 07/10/19 12:12 Ur Leukocyte Esterase Lg (Negative) 07/10/19 12:12 67.0 /HPF (0.0-6.0) H 07/10/19 12:12 7.0 /HPF (0.0-6.0) 07/10/19 12:12 U Epithel Cells (Auto) < 1.0 /HPF (0-13.0) 07/10/19 12:12 1+ /HPF (Negative) 07/10/19 12:12 3+ /HPF 07/10/19 12:12 Few /HPF 07/10/19 12:12 Blood Type B POSITIVE 07/10/19 11:45 Antibody Screen Negative 07/10/19 11:45 - Imaging and Cardiology EKG: report reviewed (SVT with frequent pvc's) Chest x-ray: report reviewed Imaging and Cardiology: CXR Cardiomegaly and mild CHF More focal parenchymal disease in the RLL maybe related to asymmetric edema or Pneumonia . Mild left basilar sub segmental atelectasis. Assessment and Plan Assessment and plan: Critical care time:45 minutes Advance Directives: Yes (Full code) VTE prophylaxis?: Chemical Plan of care discussed with patient/family: Yes - Patient Problems (1) Acute respiratory failure with hypoxia Current Visit: Yes Status: Acute Plan to address problem: Patient initiated on IV abx IV Solumedrol and Nebulizer treatments. On Bipap No intubation (2) Atrial fibrillation with RVR Current Visit: Yes Status: Acute Plan to address problem: Started on IV Diltiazem Cardiolgy consult (3) Right middle lobe pulmonary infiltrate Current Visit: Yes Status: Acute Plan to address problem: IV Cefepime (4) Acute exacerbation of congestive heart failure Current Visit: Yes Status: Acute Qualifiers: Heart failure type: combined systolic and diastolic Qualified Code(s): I50.43 - Acute on chronic combined systolic (congestive) and diastolic (congestive) heart failure Plan to address problem: IV Lasix Daily weights Daily I/o Echo for EF (5) T2DM (type 2 diabetes mellitus) Current Visit: Yes Status: Chronic 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
[2019-07-11] MEDS: CEFEPIME/NS 2 GM/100 ML 2 GM/100 ML BAG IV SCH (08:27)
[2019-07-11] MEDS: IPRATROPIUM/ALBUTEROL SULFATE 3 ML AMPUL.NEB IH SCH ×2 (08:44→13:53)
[2019-07-11] MEDS: FAMOTIDINE 20 MG/2 ML INJ IV SCH ×2 (10:05→21:59)
--- NOTE | 2019-07-11 12:03 | Consultation ---
History of Present Illness Consult date: 07/11/19 Requesting physician: CRISTAL CHACKO Reason for consult: dyspnea, hypoxemia, abnormal CXR/CT History of present illness: 78 y/o female admitted via the ED for acute hypoxic respiratory failure. Patient developed a cough on of this week and started taking Dayquil and Nyquil. Cough did not improve Friday or Friday. Mid day Friday patient could not breathe and she called 911. When [facility] arrived she had a sat of 82. Was placed on PPV and transported to the ED. That is the last thing she remembers. IN the ED was hypertensive. Given lasix and continued on bipap. Awake enough to continue and was transitioned to the ICU. Patient has a long history of afib and has been in afib since she was 20 years old. She was started on dilt drip as she could not take PO given the need for bipap therapy. This am she has been weaned to nasal cannula and work of breathing is much easier. Twin sisters are at the bedside. Remainder of the review is negative. Past History Past Medical History: atrial fib, cancer, diabetes, hypertension Past Surgical History: mastectomy Social history: no significant social history, lives with family Family history: no significant family history Medications and Allergies Allergies Allergy/AdvReac Type Severity Reaction Status Date / Time meperidine [From Demerol] Allergy Anaphylaxis Verified 07/10/19 12:26 Penicillins Allergy Anaphylaxis Verified 07/10/19 12:25 Home Medications Medication Instructions Recorded Confirmed Last Taken Type Calcium + Vitamin D3 Gummies 1 tab PO QDAY 07/10/19 07/10/19 Unknown History Digoxin [Lanoxin] 0.25 mg PO DAILY 07/10/19 07/10/19 Unknown History Furosemide [Lasix] 20 mg PO QDAY 07/10/19 07/10/19 Unknown History Insulin Glargine,Hum.rec.anlog 35 unit SQ QDAY 07/10/19 07/10/19 Unknown History [Lantus Solostar] Metformin HCl [metFORMIN] 1,000 mg PO BID 07/10/19 07/10/19 Unknown History Multivitamin 1 tab PO QDAY 07/10/19 07/10/19 Unknown History Olmesartan (Nf) 2 tab QDAY 07/10/19 07/10/19 Unknown History Potassium Chloride [K-Dur] 1 tab PO QDAY 07/10/19 07/10/19 Unknown History Warfarin [Coumadin] 5 mg PO QDAY 07/10/19 07/10/19 Unknown History Warfarin [Coumadin] 7.5 mg PO QDAY 07/10/19 07/10/19 Unknown History traMADol [Ultram] 50 mg PO Q12HR PRN 07/10/19 07/10/19 Unknown History Active Meds: Active Medications Acetaminophen (Tylenol) 650 mg PO Q4H PRN PRN Reason: Pain MILD(1-3)/Fever >100.5/SPICER Albuterol (Proventil) 2.5 mg IH Q4H PRN PRN Reason: Shortness Of Breath Albuterol/Ipratropium (Duoneb *Not For Prn Use*) 1 ampul IH QIDRT [facility] Last Admin: 07/11/19 08:44 Dose: 1 ampul Documented by: Famotidine (Pepcid) 10 mg IV BID [facility] Last Admin: 07/11/19 10:05 Dose: 10 mg Documented by: Hydromorphone HCl (Dilaudid) 0.5 mg IV Q3H PRN PRN Reason: Pain , Severe (7-10) Diltiazem HCl (Cardizem/D5w 100mg/100ml) 100 mg in 100 mls @ 5 mls/hr IV TITR [facility]; Protocol Last Titration: 07/11/19 08:25 Dose: 5 mg/hr, 5 mls/hr Documented by: Sodium Chloride (Nacl 0.9% 1000 Ml) 1,000 mls @ 42 mls/hr IV DIRECT MEME Methylprednisolone Sodium Succinate (Solu-Medrol) 125 mg IV Q8HR [facility] Last Admin: 07/11/19 06:09 Dose: 125 mg Documented by: Metoclopramide HCl (Reglan) 10 mg IV Q6H PRN PRN Reason: Nausea And Vomiting Ondansetron HCl (Zofran) 4 mg IV Q8H PRN PRN Reason: Nausea And Vomiting Oxycodone/Acetaminophen (Percocet 5/325) 1 tab PO Q6H PRN PRN Reason: Pain, Moderate (4-6) Last Admin: 07/11/19 02:27 Dose: 1 tab Documented by: Sodium Chloride (Sodium Chloride Flush Syringe 10 Ml) 10 ml IV BID [facility] Last Admin: 07/11/19 10:06 Dose: 10 ml Documented by: Sodium Chloride (Sodium Chloride Flush Syringe 10 Ml) 10 ml IV PRN PRN PRN Reason: LINE FLUSH Review of Systems All systems: negative Physical Examination Vital signs: Vital Signs Temp Pulse Resp BP Pulse Ox 98.4 F 123 H 46 H 173/75 91 07/10/19 11:30 07/10/19 11:30 07/10/19 11:30 07/10/19 11:30 07/10/19 11:30 General appearance: no acute distress, alert Eyes: non-icteric ENT: oropharynx moist Neck: supple, no JVD Effort: normal Ascultation: Bilateral: rales Percussion: Bilateral: not dull Tactile fremitus: Bilateral: normal Cardiovascular: irregular rhythm Gastrointestinal: normoactive bowel sounds, soft, non-tender Extremities: edema (bilateral lower ext, per patient and family, this is improved) normal mental status, non-focal exam mood appropriate, affect normal Results - Laboratory Findings CBC and BMP: 07/11/19 04:34 07/11/19 04:34 ABG POC ABG pH 7.363 (7.35-7.45) 07/10/19 12:03 POC ABG pCO2 34.3 (35-45) L 07/10/19 12:03 POC ABG pO2 100 (80-105) 07/10/19 12:03 POC ABG HCO3 19.5 (22-26 mml/L) 07/10/19 12:03 POC ABG Total CO2 21 (23-27mmol/L) 07/10/19 12:03 POC ABG O2 Sat 98 07/10/19 12:03 PT/INR, D-dimer PT 31.5 Sec. (12.2-14.9) H 07/10/19 11:45 INR 3.11 (0.87-1.13) H 07/10/19 11:45 Abnormal lab findings: Abnormal Labs 07/10/19 07/10/19 07/10/19 11:45 11:45 11:45 WBC 12.5 H RBC 3.56 L Hgb 9.5 L Hct 29.9 L MCH 27 L RDW 15.6 H Plt Count Lymph % (Auto) 5.2 L Lymph # 0.7 L Seg Neutrophils % 89.1 H Seg Neuts % (Manual) Lymphocytes % (Manual) Seg Neutrophils # 11.2 H Lymphocytes # (Manual) PT 31.5 H INR 3.11 H APTT 43.9 H POC ABG pCO2 VBG pH Sodium 131 L Potassium Chloride 92.4 L Carbon Dioxide 19 L BUN 20 H Creatinine 1.4 H Glucose 370 H POC Glucose Hemoglobin A1c Lactic Acid Direct Bilirubin NT-Pro-B Natriuret Pep Albumin Urine WBC (Auto) 07/10/19 07/10/19 07/10/19 11:45 11:45 11:45 WBC RBC Hgb Hct MCH RDW Plt Count Lymph % (Auto) Lymph # Seg Neutrophils % Seg Neuts % (Manual) Lymphocytes % (Manual) Seg Neutrophils # Lymphocytes # (Manual) PT INR APTT POC ABG pCO2 VBG pH 7.272 L Sodium Potassium Chloride Carbon Dioxide BUN Creatinine Glucose POC Glucose Hemoglobin A1c Lactic Acid 3.70 H* Direct Bilirubin 0.4 H NT-Pro-B Natriuret Pep 1548 H Albumin Urine WBC (Auto) 07/10/19 07/10/19 07/10/19 12:03 12:12 12:53 WBC RBC Hgb Hct MCH RDW Plt Count Lymph % (Auto) Lymph # Seg Neutrophils % Seg Neuts % (Manual) Lymphocytes % (Manual) Seg Neutrophils # Lymphocytes # (Manual) PT INR APTT POC ABG pCO2 34.3 L VBG pH Sodium Potassium Chloride Carbon Dioxide BUN Creatinine Glucose POC Glucose Hemoglobin A1c Lactic Acid 3.00 H* Direct Bilirubin NT-Pro-B Natriuret Pep Albumin Urine WBC (Auto) 67.0 H 07/10/19 07/10/19 07/10/19 13:34 13:52 15:50 WBC RBC Hgb Hct MCH RDW Plt Count Lymph % (Auto) Lymph # Seg Neutrophils % Seg Neuts % (Manual) Lymphocytes % (Manual) Seg Neutrophils # Lymphocytes # (Manual) PT INR APTT POC ABG pCO2 VBG pH Sodium Potassium Chloride Carbon Dioxide BUN Creatinine Glucose POC Glucose 279 H 244 H Hemoglobin A1c Lactic Acid 2.70 H* Direct Bilirubin NT-Pro-B Natriuret Pep Albumin Urine WBC (Auto) 07/10/19 07/10/19 07/11/19 19:49 21:43 04:34 WBC RBC 3.34 L Hgb 9.1 L Hct 28.2 L MCH 27 L RDW 15.7 H Plt Count 125 L Lymph % (Auto) Lymph # Seg Neutrophils % Seg Neuts % (Manual) 93.0 H Lymphocytes % (Manual) 4.0 L Seg Neutrophils # Lymphocytes # (Manual) 0.3 L PT INR APTT POC ABG pCO2 VBG pH Sodium Potassium Chloride Carbon Dioxide BUN Creatinine Glucose POC Glucose 202 H Hemoglobin A1c 6.5 H Lactic Acid Direct Bilirubin NT-Pro-B Natriuret Pep Albumin Urine WBC (Auto) 07/11/19 04:34 WBC RBC Hgb Hct MCH RDW Plt Count Lymph % (Auto) Lymph # Seg Neutrophils % Seg Neuts % (Manual) Lymphocytes % (Manual) Seg Neutrophils # Lymphocytes # (Manual) PT INR APTT POC ABG pCO2 VBG pH Sodium 132 L Potassium 5.5 H D Chloride Carbon Dioxide BUN 25 H Creatinine 1.5 H Glucose 236 H POC Glucose Hemoglobin A1c Lactic Acid Direct Bilirubin NT-Pro-B Natriuret Pep Albumin 3.5 L Urine WBC (Auto) - Diagnostic Findings Chest x-ray: image reviewed (bilateral alveolar filling, given hypertension and known afib most likely this is pulmonary edema) Assessment and Plan 78 y/o female with acute hypoxic respiratory failure secondary to pulmonary edema, afib with RVR, hypertension and presumptive acute renal failure and most likely a UTI that is asymptomatic. 1. CV-Elevated BP, Elevated BNP. Most of the time patient goes to [facility]. She is followed by [facility]. She also sees an Airplane Patrol Pilot named Lucy ([email or web address]). Will consult [facility]. Per patient, she cannot tolerate dilt and it is currently not working and has not been titrated so will stop. Will restart her home dose of dig which she state she is taking every other day. Will given IV lasix now and suggest daily dosing until euvolemic. Cannot restart Kemar or Arb at the moment given renal failure. Will given some PRN hydralazine with parameters. Per patient metoprolol has not worked for her in the past either. Stopping dilt drip as well. Will defer to [facility] if another echo is needed. 2. Pulm-pulmonary edema secondary to hypertension and afib with RVR. Lasix again today. Wean FiO2 as tolerated. Stopped steroids and stopped neb treatments. 3. Endocrine-Patient is a known diabetic on 2000 daily of Metformin and 35 units QHS of Levemir. However per patient, sugars have been in the 60's in the am. Will hold Metformin given renal failure and decrease Levemir to 25. Placed on FSBS qac and HS and moderate dose sliding scale 4. Renal failure-Unsure if this is acute or acute on chronic. Assume acute. Suggest sending urine lytes and obtaining renal ultrasound. Will defer to primary if they want renal consult. 5. Heme-INR is slightly supratherapeutic. Hold coumadin today and recheck tomorrow. 6. Once of dilt drip and rate is controlled, can be transferred out of ICU.
[2019-07-11] MEDS ORDERED: DEXTROSE 50% IN WATER (25GM) 50 ML SYRINGE IV PRN (12:12)
[2019-07-11] MEDS ORDERED: hydrALAZINE 20 MG/1 ML INJ IV PRN (12:15)
[2019-07-11] MEDS: DIGOXIN 0.25 MG TAB PO SCH (13:04)
[2019-07-11] MEDS: FUROSEMIDE 40 MG/4 ML INJ IV SCH (13:05)
--- NOTE | 2019-07-11 15:24 | Progress Note ---
Assessment and Plan - Patient Problems (1) Acute exacerbation of congestive heart failure Current Visit: Yes Status: Acute Qualifiers: Heart failure type: combined systolic and diastolic Qualified Code(s): I50.43 - Acute on chronic combined systolic (congestive) and diastolic (congestive) heart failure Plan to address problem: Patient has what appears to be acute exacerbation of heart failure versus pneumonia. We'll admit diurese with IV diuretics. Will place patient back on VENANCIO inhibitor and beta jaye (2) Acute respiratory failure with hypoxia Current Visit: Yes Status: Acute Plan to address problem: Patient is stable enough on 2 L of oxygen to transfer to the telemetry unit. No chest pain. Continue diuresis continue nebulizers. Pulmonology following. At present no need for steroids will treat empirically for underlying pneumonia with azithromycin. (3) Atrial fibrillation with RVR Current Visit: Yes Status: Acute Plan to address problem: Patient rate much better control with Cardizem IV. Patient states that she multiple episodes of fatigue and heart irregularity with both AV node blocking agents Cardizem and Lopressor. Despite patient not having any problems with IV Cardizem now. Ration has cardiology consult with her routine core shaper sides. We'll let them make that decision. She states Dr. Davison usually knows what to use for her. (4) DVT prophylaxis Current Visit: Yes Status: Acute Plan to address problem: Continue prophylaxis Lovenox. (5) Right middle lobe pulmonary infiltrate Current Visit: Yes Status: Acute Plan to address problem: Questionable right middle lobe pneumonia. We'll treat his that. We'll give azithromycin daily. Nebulizers when necessary following culture data. (6) T2DM (type 2 diabetes mellitus) Current Visit: Yes Status: Chronic Qualifiers: Diabetes mellitus fpc insulin use: unspecified fpc insulin use status Plan to address problem: Patient has diabetes mellitus unsure of exact control current Accu-Cheks within normal limits. We'll resume insulin Lantus 25 units daily at bedtime. History Interval history: Patient 78-year-old with a past medical history of atrial fibrillation #2 congestive heart failure on Coumadin presents with a chief complaint of shor tness of breath dyspnea on exertion. Family at bedside all questions and concerns answered. Patient admitted for acute respiratory failure at present patient able to talk in full sentences without any difficulty. Stable with 2 L of oxygen at present. Hospitalist Physical - Constitutional Vitals: Temp Pulse Resp BP Pulse Ox 97.7 F 90 29 H 137/81 97 07/11/19 12:00 07/11/19 14:01 07/11/19 14:01 07/11/19 14:01 07/11/19 14:01 General appearance: Present: no acute distress, well-nourished - EENT Eyes: Present: PERRL, EOM intact. Absent: scleral icterus, conjunctival injection, exopthalmos ENT: hearing intact, clear oral mucosa, dentition normal, no oropharyngeal erythema, no poor dentition - Neck Neck: Present: supple, normal ROM - Respiratory Respiratory: bilateral: diminished, rales - Cardiovascular Rhythm: regularly irregular Heart Sounds: Present: S1 & S2 - Extremities Extremities: no ischemia, pulses intact, pulses symmetrical, normal temperature, normal color, Full ROM Extremity abnormal: edema Peripheral Pulses: within normal limits - Abdominal General gastrointestinal: soft, non-tender, non-distended, normal bowel sounds, no hepatomegaly, no splenomegaly, no mass - Integumentary Integumentary: Present: clear, warm, dry, erythema - Psychiatric Psychiatric: appropriate mood/affect, intact judgment & insight, memory intact Results - Labs CBC & Chem 7: 07/11/19 04:34 07/11/19 04:34 Labs: Laboratory Last Values WBC 7.2 K/mm3 (4.5-11.0) 07/11/19 04:34 RBC 3.34 M/mm3 (3.65-5.03) L 07/11/19 04:34 Hgb 9.1 gm/dl (10.1-14.3) L 07/11/19 04:34 Hct 28.2 % (30.3-42.9) L 07/11/19 04:34 MCV 85 fl (79-97) 07/11/19 04:34 MCH 27 pg (28-32) L 07/11/19 04:34 MCHC 32 % (30-34) 07/11/19 04:34 RDW 15.7 % (13.2-15.2) H 07/11/19 04:34 Plt Count 125 K/mm3 (140-440) L 07/11/19 04:34 Lymph % (Auto) 5.2 % (13.4-35.0) L 07/10/19 11:45 [place] % (Auto) 4.6 % (0.0-7.3) 07/10/19 11:45 Eos % (Auto) 0.3 % (0.0-4.3) 07/10/19 11:45 Baso % (Auto) 0.8 % (0.0-1.8) 07/10/19 11:45 Lymph # 0.7 K/mm3 (1.2-5.4) L 07/10/19 11:45 [place] # 0.6 K/mm3 (0.0-0.8) 07/10/19 11:45 Eos # 0.0 K/mm3 (0.0-0.4) 07/10/19 11:45 Baso # 0.1 K/mm3 (0.0-0.1) 07/10/19 11:45 Add Manual Diff Complete 07/11/19 04:34 Total Counted 100 07/11/19 04:34 Seg Neutrophils % Fish Cleaner Machine Tender 07/11/19 04:34 Seg Neuts % (Manual) 93.0 % (40.0-70.0) H 07/11/19 04:34 0 % 07/11/19 04:34 4.0 % (13.4-35.0) L 07/11/19 04:34 Reactive Lymphs % (Man) 0 % 07/11/19 04:34 3.0 % (0.0-7.3) 07/11/19 04:34 0 % (0.0-4.3) 07/11/19 04:34 0 % (0.0-1.8) 07/11/19 04:34 0 % 07/11/19 04:34 0 % 07/11/19 04:34 0 % 07/11/19 04:34 0 % 07/11/19 04:34 Nucleated RBC % Not Reportable 07/11/19 04:34 Seg Neutrophils # 11.2 K/mm3 (1.8-7.7) H 07/10/19 11:45 Seg Neutrophils # Man 6.7 K/mm3 (1.8-7.7) 07/11/19 04:34 Band Neutrophils # 0.0 K/mm3 07/11/19 04:34 0.3 K/mm3 (1.2-5.4) L 07/11/19 04:34 Abs React Lymphs (Man) 0.0 K/mm3 07/11/19 04:34 0.2 K/mm3 (0.0-0.8) 07/11/19 04:34 0.0 K/mm3 (0.0-0.4) 07/11/19 04:34 0.0 K/mm3 (0.0-0.1) 07/11/19 04:34 0.0 K/mm3 07/11/19 04:34 0.0 K/mm3 07/11/19 04:34 0.0 K/mm3 07/11/19 04:34 Blast Cells # 0.0 K/mm3 07/11/19 04:34 WBC Morphology Not Reportable 07/11/19 04:34 Hypersegmented Neuts Not Reportable 07/11/19 04:34 Hyposegmented Neuts Not Reportable 07/11/19 04:34 Hypogranular Neuts Not Reportable 07/11/19 04:34 Not Reportable 07/11/19 04:34 Not Reportable 07/11/19 04:34 Not Reportable 07/11/19 04:34 Not Reportable 07/11/19 04:34 Not Reportable 07/11/19 04:34 Not Reportable 07/11/19 04:34 Not Reportable 07/11/19 04:34 Not Reportable 07/11/19 04:34 Plt Clumps, EDTA Not Reportable 07/11/19 04:34 Not Reportable 07/11/19 04:34 Not Reportable 07/11/19 04:34 Not Reportable 07/11/19 04:34 Plt Morphology Comment Not Reportable 07/11/19 04:34 RBC Morphology Normal 07/11/19 04:34 Dimorphic RBCs Not Reportable 07/11/19 04:34 Not Reportable 07/11/19 04:34 Not Reportable 07/11/19 04:34 Not Reportable 07/11/19 04:34 Not Reportable 07/11/19 04:34 Not Reportable 07/11/19 04:34 Not Reportable 07/11/19 04:34 Not Reportable 07/11/19 04:34 Not Reportable 07/11/19 04:34 Not Reportable 07/11/19 04:34 Not Reportable 07/11/19 04:34 Not Reportable 07/11/19 04:34 Not Reportable 07/11/19 04:34 Not Reportable 07/11/19 04:34 Not Reportable 07/11/19 04:34 Not Reportable 07/11/19 04:34 Not Reportable 07/11/19 04:34 Not Reportable 07/11/19 04:34 Not Reportable 07/11/19 04:34 Not Reportable 07/11/19 04:34 Acanthocytes (Spur) Not Reportable 07/11/19 04:34 Rouleaux Not Reportable 07/11/19 04:34 Not Reportable 07/11/19 04:34 Not Reportable 07/11/19 04:34 Not Reportable 07/11/19 04:34 Not Reportable 07/11/19 04:34 Hem Pathologist Commnt No 07/11/19 04:34 PT 31.5 Sec. (12.2-14.9) H 07/10/19 11:45 INR 3.11 (0.87-1.13) H 07/10/19 11:45 APTT 43.9 Sec. (24.2-36.6) H 07/10/19 11:45 POC ABG pH 7.363 (7.35-7.45) 07/10/19 12:03 POC ABG pCO2 34.3 (35-45) L 07/10/19 12:03 POC ABG pO2 100 (80-105) 07/10/19 12:03 POC ABG HCO3 19.5 (22-26 mml/L) 07/10/19 12:03 POC ABG Total CO2 21 (23-27mmol/L) 07/10/19 12:03 POC ABG O2 Sat 98 07/10/19 12:03 POC ABG Base Excess -6 ((-2) - (+3)mmol/L) 07/10/19 12:03 VBG pH 7.272 (7.320-7.420) L 07/10/19 11:45 60 % 07/10/19 12:03 Sodium 132 mmol/L (137-145) L 07/11/19 04:34 Potassium 5.5 mmol/L (3.6-5.0) H D 07/11/19 04:34 Chloride 98.7 mmol/L (98-107) 07/11/19 04:34 Carbon Dioxide 22 mmol/L (22-30) 07/11/19 04:34 17 mmol/L 07/11/19 04:34 BUN 25 mg/dL (7-17) H 07/11/19 04:34 1.5 mg/dL (0.7-1.2) H 07/11/19 04:34 Estimated GFR 34 ml/min 07/11/19 04:34 17 % 07/11/19 04:34 Glucose 236 mg/dL (65-100) H 07/11/19 04:34 POC Glucose 202 (70-105) H 07/10/19 21:43 6.5 % (4-6) H 07/10/19 19:49 Lactic Acid 2.70 mmol/L (0.7-2.0) H* 07/10/19 13:34 Calcium 8.8 mg/dL (8.4-10.2) 07/11/19 04:34 Magnesium 2.10 mg/dL (1.7-2.3) 07/10/19 11:45 0.80 mg/dL (0.1-1.2) 07/11/19 04:34 0.4 mg/dL (0-0.2) H 07/10/19 11:45 0.4 mg/dL 07/10/19 11:45 AST 29 units/L (5-40) 07/11/19 04:34 ALT 16 units/L (7-56) 07/11/19 04:34 65 units/L (35-129) 07/11/19 04:34 40 units/L (30-135) 07/10/19 11:45 CK-MB (CK-2) 1.4 ng/mL (0.0-4.0) 07/10/19 11:45 CK-MB (CK-2) Rel Index 3.5 (0-4) 07/10/19 11:45 < 0.010 ng/mL (0.00-0.029) 07/10/19 11:45 NT-Pro-B Natriuret Pep 1548 pg/mL (0-900) H 07/10/19 11:45 7.5 g/dL (6.3-8.2) 07/11/19 04:34 3.5 g/dL (3.9-5) L 07/11/19 04:34 0.9 % 07/11/19 04:34 [place] (Yellow) 07/10/19 12:12 Cloudy (Clear) 07/10/19 12:12 5.0 (5.0-7.0) 07/10/19 12:12 Ur Specific [place] 1.017 (1.003-1.030) 07/10/19 12:12 100 mg/dl mg/dL (Negative) 07/10/19 12:12 50 mg/dL (Negative) 07/10/19 12:12 Neg mg/dL (Negative) 07/10/19 12:12 Sm (Negative) 07/10/19 12:12 Neg (Negative) 07/10/19 12:12 Neg (Negative) 07/10/19 12:12 < 2.0 mg/dL (<2.0) 07/10/19 12:12 Ur Leukocyte Esterase Lg (Negative) 07/10/19 12:12 67.0 /HPF (0.0-6.0) H 07/10/19 12:12 7.0 /HPF (0.0-6.0) 07/10/19 12:12 U Epithel Cells (Auto) < 1.0 /HPF (0-13.0) 07/10/19 12:12 1+ /HPF (Negative) 07/10/19 12:12 3+ /HPF 07/10/19 12:12 Few /HPF 07/10/19 12:12 Blood Type B POSITIVE 07/10/19 11:45 Antibody Screen Negative 07/10/19 11:45 - Imaging and Cardiology EKG: image reviewed Chest x-ray: report reviewed, image reviewed Active Medications - Current Medications Current Medications: Generic Name Dose Route Start Last Admin Trade Name Freq PRN Reason Stop Dose Admin Acetaminophen 650 mg 07/10/19 19:06 Tylenol PO Q4H PRN Pain MILD(1-3)/Fever >100.5/SPICER Dextrose 50 ml 07/11/19 12:12 D50w (25gm) Syringe IV PRN PRN Hypoglycemia Digoxin 0.25 mg 07/11/19 13:00 07/11/19 13:04 Lanoxin PO 0.25 mg Q48H MEME Administration Famotidine 10 mg 07/10/19 22:00 07/11/19 10:05 Pepcid IV 10 mg BID MEME Administration Furosemide 40 mg 07/11/19 13:00 07/11/19 13:05 Lasix IV 40 mg QDAY MEME Administration Hydralazine HCl 20 mg 07/11/19 12:15 Apresoline IV Q6H PRN Hypertension Diltiazem HCl 100 mg in 100 mls @ 5 mls/hr 07/10/19 12:30 07/11/19 08:25 Cardizem/D5w 100mg/100ml IV 5 mg/hr TITR MEME 5 mls/hr Titration Protocol 5 MG/HR Insulin Glargine 25 units 07/11/19 22:00 Lantus SUB-Q QHS MEME Insulin Human Regular 0 units 07/11/19 16:30 Humulin R SUB-Q ACHS MEME Protocol Ondansetron HCl 4 mg 07/10/19 19:06 Zofran IV Q8H PRN Nausea And Vomiting Oxycodone/Acetaminophen 1 tab 07/10/19 19:06 07/11/19 02:27 Percocet 5/325 PO 1 tab Q6H PRN Administration Pain, Moderate (4-6) Sodium Chloride 10 ml 07/10/19 22:00 07/11/19 10:06 Sodium Chloride Flush Syringe 10 Ml IV 10 ml BID MEME Administration Sodium Chloride 10 ml 07/10/19 19:06 Sodium Chloride Flush Syringe 10 Ml IV PRN PRN LINE FLUSH
[2019-07-11] MEDS: INSULIN REGULAR, HUMAN 100 UNITS/1 ML SUB-Q SCH ×2 (16:51→22:02)
--- NOTE | 2019-07-11 17:15 | Consultation ---
History of Present Illness Consult date: 07/11/19 Consult reason: atrial fibrillation, congestive heart failure History of present illness: 78-year-old woman with a history of chronic atrial fibrillation on rate control strategy and chronic anticoagulation on warfarin. She presented with shortness of breath and edema, clinical and x-ray findings consistent with congestive heart failure. Clinical status improved on intravenous diuretic therapy, and she looks and feels better. She follows up regularly with her outpatient sample dye mixer, Dr. Davison, states that she underwent a thallium stress test a year ago, but no history of invasive cardiac evaluation. In addition, been prior admissions, notably at [facility] for similar symptoms but she does not remember any invasive cardiac ischemic evaluation. ECG here is atrial fibrillation, intermittent PVCs, and borderline ischemic ST depression in the lateral precordial leads. INR is 3.1 on Coumadin therapy. Past History Past Medical History: atrial fib, cancer, diabetes, hypertension Past Surgical History: mastectomy Social history: no significant social history, lives with family Family history: no significant family history Medications and Allergies Allergies Allergy/AdvReac Type Severity Reaction Status Date / Time meperidine [From Demerol] Allergy Anaphylaxis Verified 07/10/19 12:26 Penicillins Allergy Anaphylaxis Verified 07/10/19 12:25 Home Medications Medication Instructions Recorded Confirmed Last Taken Type Calcium + Vitamin D3 Gummies 1 tab PO QDAY 07/10/19 07/10/19 Unknown History Digoxin [Lanoxin] 0.25 mg PO DAILY 07/10/19 07/10/19 Unknown History Furosemide [Lasix] 20 mg PO QDAY 07/10/19 07/10/19 Unknown History Insulin Glargine,Hum.rec.anlog 35 unit SQ QDAY 07/10/19 07/10/19 Unknown History [Lantus Solostar] Metformin HCl [metFORMIN] 1,000 mg PO BID 07/10/19 07/10/19 Unknown History Multivitamin 1 tab PO QDAY 07/10/19 07/10/19 Unknown History Olmesartan (Nf) 2 tab QDAY 07/10/19 07/10/19 Unknown History Potassium Chloride [K-Dur] 1 tab PO QDAY 07/10/19 07/10/19 Unknown History Warfarin [Coumadin] 5 mg PO QDAY 07/10/19 07/10/19 Unknown History Warfarin [Coumadin] 7.5 mg PO QDAY 07/10/19 07/10/19 Unknown History traMADol [Ultram] 50 mg PO Q12HR PRN 07/10/19 07/10/19 Unknown History Active Meds: Active Medications Acetaminophen (Tylenol) 650 mg PO Q4H PRN PRN Reason: Pain MILD(1-3)/Fever >100.5/SPICER Dextrose (D50w (25gm) Syringe) 50 ml IV PRN PRN PRN Reason: Hypoglycemia Digoxin (Lanoxin) 0.25 mg PO Q48H [facility] Last Admin: 07/11/19 13:04 Dose: 0.25 mg Documented by: Famotidine (Pepcid) 10 mg IV BID [facility] Last Admin: 07/11/19 10:05 Dose: 10 mg Documented by: Furosemide (Lasix) 40 mg IV QDAY [facility] Last Admin: 07/11/19 13:05 Dose: 40 mg Documented by: Hydralazine HCl (Apresoline) 20 mg IV Q6H PRN PRN Reason: Hypertension Diltiazem HCl (Cardizem/D5w 100mg/100ml) 100 mg in 100 mls @ 5 mls/hr IV TITR [facility]; Protocol Last Titration: 07/11/19 15:43 Dose: 0 mg/hr, 0 mls/hr Documented by: Insulin Glargine (Lantus) 25 units SUB-Q QHS [facility] Insulin Human Regular (Humulin R) 0 units SUB-Q ACHS [facility]; Protocol Last Admin: 07/11/19 16:51 Dose: 8 units Documented by: Ondansetron HCl (Zofran) 4 mg IV Q8H PRN PRN Reason: Nausea And Vomiting Oxycodone/Acetaminophen (Percocet 5/325) 1 tab PO Q6H PRN PRN Reason: Pain, Moderate (4-6) Last Admin: 07/11/19 02:27 Dose: 1 tab Documented by: Sodium Chloride (Sodium Chloride Flush Syringe 10 Ml) 10 ml IV BID [facility] Last Admin: 07/11/19 10:06 Dose: 10 ml Documented by: Sodium Chloride (Sodium Chloride Flush Syringe 10 Ml) 10 ml IV PRN PRN PRN Reason: LINE FLUSH Review of Systems Cardiovascular: chest pain, orthopnea, palpitations, rapid/irregular heart beat, edema, shortness of breath, no syncope, no lightheadedness Physical Examination Vital Signs Temp Pulse Resp BP Pulse Ox 98.4 F 123 H 46 H 173/75 91 07/10/19 11:30 07/10/19 11:30 07/10/19 11:30 07/10/19 11:30 07/10/19 11:30 General appearance: mild distress HEENT: Positive: PERRL Neck: Positive: neck supple Cardiac: Positive: irregularly irregular Lungs: Positive: Decreased Breath Sounds Neuro: Positive: Grossly Intact Abdomen: Positive: Soft Female genitourinary: deferred Skin: Positive: Clear Extremities: Present: +1 Edema Results 07/11/19 04:34 07/11/19 04:34 Cardiac Enzymes 07/11/19 Range/Units 04:34 AST 29 (5-40) units/L CBC 07/11/19 Range/Units 04:34 WBC 7.2 (4.5-11.0) K/mm3 RBC 3.34 L (3.65-5.03) M/mm3 Hgb 9.1 L (10.1-14.3) gm/dl Hct 28.2 L (30.3-42.9) % Plt Count 125 L (140-440) K/mm3 Comprehensive Metabolic Panel 07/11/19 Range/Units 04:34 Sodium 132 L (137-145) mmol/L Potassium 5.5 H D (3.6-5.0) mmol/L Chloride 98.7 (98-107) mmol/L Carbon Dioxide 22 (22-30) mmol/L BUN 25 H (7-17) mg/dL Creatinine 1.5 H (0.7-1.2) mg/dL Glucose 236 H (65-100) mg/dL Calcium 8.8 (8.4-10.2) mg/dL AST 29 (5-40) units/L ALT 16 (7-56) units/L Alkaline Phosphatase 65 (35-129) units/L Total Protein 7.5 (6.3-8.2) g/dL Albumin 3.5 L (3.9-5) g/dL EKG interpretations - Telemetry EKG Rhythm: Atrial Fibrillation Assessment and Plan - Patient Problems (1) Acute exacerbation of congestive heart failure Current Visit: Yes Status: Acute Qualifiers: Heart failure type: combined systolic and diastolic Qualified Code(s): I50.43 - Acute on chronic combined systolic (congestive) and diastolic (congestive) heart failure Plan to address problem: Patient presented with acute exacerbation of congestive heart failure. We will obtain an echocardiogram for left ventricular function assessment. We will treat with diuretics, optimal atrial fibrillation and other guideline directed medical therapy based on findings on echocardiogram. Further ischemic workup will be considered following discussions with the patient's outpatient sample dye mixer. If indicated, we will have to place a hold on Coumadin therapy for 3-4 days prior to invasive cardiac evaluation. (2) Atrial fibrillation with RVR Current Visit: Yes Status: Acute Plan to address problem: Patient is on rate control strategy for her chronic atrial fibrillation, and oral anticoagulation therapy will be continued in the outpatient as is current.
[2019-07-11] MEDS: INSULIN GLARGINE 100 UNITS/ML SUB-Q SCH (21:57)
[2019-07-11] MEDS: dilTIAZem/D5W 100 MG/100 ML BAG IV SCH (23:20)
[2019-07-12] MEDS: oxyCODONE /ACETAMINOPHEN 5-325MG TAB PO PRN ×2 (08:53→21:03)
[2019-07-12] MEDS: levoFLOXacin 250 MG TAB PO SCH (10:34)
[2019-07-12] MEDS: FUROSEMIDE 40 MG/4 ML INJ IV SCH (10:34)
[2019-07-12] MEDS: FAMOTIDINE 10 MG TAB PO SCH ×2 (10:34→21:03)
[2019-07-12] MEDS: INSULIN REGULAR, HUMAN 100 UNITS/1 ML SUB-Q SCH ×4 (10:35→22:42)
--- NOTE | 2019-07-12 14:37 | Progress Note ---
Assessment and Plan - Patient Problems (1) Acute exacerbation of congestive heart failure Current Visit: Yes Status: Acute Qualifiers: Heart failure type: combined systolic and diastolic Qualified Code(s): I50.43 - Acute on chronic combined systolic (congestive) and diastolic (congestive) heart failure Plan to address problem: Patient presented with acute exacerbation of congestive heart failure. We will obtain an echocardiogram for left ventricular function assessment. We will treat with diuretics, optimal atrial fibrillation and other guideline directed medical therapy based on findings on echocardiogram. Further ischemic workup will be considered following discussions with the patient's outpatient physical trainer. If indicated, we will have to place a hold on Coumadin therapy for 3-4 days prior to invasive cardiac evaluation. (2) Atrial fibrillation with RVR Current Visit: Yes Status: Acute Plan to address problem: Patient is on rate control strategy for her chronic atrial fibrillation, and oral anticoagulation therapy will be continued in the outpatient as is current. Subjective Date of service: 07/12/19 Interval history: The patient is comfortable, looks and feels better, shortness of breath is much improved. Objective Vital Signs Temp Pulse Pulse Pulse Resp BP Pulse Ox 07/12/19 10:00 103 H 106 H 106 H 20 100 07/12/19 09:32 99 07/12/19 05:01 97.9 F 47 L 18 137/76 98 07/11/19 23:16 98.2 F 140 H 18 130/75 99 07/11/19 22:40 87 87 22 100 07/11/19 21:02 99 07/11/19 19:56 98.1 F 97 H 18 147/73 100 07/11/19 19:37 88 07/11/19 18:50 114 H 07/11/19 18:31 159/76 85 07/11/19 18:10 156/96 89 07/11/19 18:01 140 H 33 H 156/96 94 07/11/19 17:51 93 H 35 H 156/96 98 07/11/19 17:41 125 H 44 H 156/96 97 07/11/19 17:31 104 H 38 H 156/96 97 07/11/19 17:21 118 H 51 H 156/96 98 07/11/19 17:11 100 H 17 156/96 97 07/11/19 17:01 104 H 26 H 156/96 97 07/11/19 16:51 89 32 H 141/73 99 07/11/19 16:41 86 36 H 141/73 98 07/11/19 16:37 88 07/11/19 16:31 85 39 H 141/73 99 07/11/19 16:21 90 32 H 142/83 99 07/11/19 16:11 90 39 H 142/83 98 07/11/19 16:01 90 25 H 142/83 98 07/11/19 16:00 90 25 H 98 07/11/19 15:51 90 28 H 142/81 98 07/11/19 15:43 97.5 F L 07/11/19 15:41 90 29 H 142/81 98 07/11/19 15:40 97.5 F L 07/11/19 15:30 89 26 H 142/81 98 07/11/19 15:21 86 35 H 133/96 97 07/11/19 15:11 101 H 24 133/96 98 07/11/19 15:01 92 H 29 H 133/96 98 07/11/19 14:51 102 H 30 H 149/84 98 07/11/19 14:41 100 H 26 H 149/84 97 - Physical Examination General: No Apparent Distress HEENT: Positive: PERRL Neck: Positive: neck supple Cardiac: Positive: irregularly irregular Lungs: Positive: Decreased Breath Sounds Neuro: Positive: Grossly Intact Abdomen: Positive: Soft Skin: Positive: Clear Extremities: Present: +1 Edema - Imaging and Cardiology EKG: image reviewed
--- NOTE | 2019-07-12 16:24 | Progress Note ---
Assessment and Plan Imp: 1. Afib with rapid VR 2. UTI 3. Acute CHF and pulm edema related to above; r/o pneumonia 4. [place] 5. ABBY, off CPAP x years 6. Acute respiratory failure, hypoxia Rec: 1. Afib as per cardiology recs 2. Repeat INR in AM; consider heparin bridge if less than 2 3. Diuresis 4. Repeat labs and CXR in AM 5. Cont. Levaquin versus urine E.coli and this should also cover any possible pulmonary infection as well 6. Benefits of CPAP were discussed; needs repeat sleep studies ROB as outpatient and this was discussed 7. Wean off O2 to keep sats > 88% Plan of care reviewed w/ patient, she understands/agrees Subjective Date of service: 07/12/19 Principal diagnosis: acute respiratory failure Interval history: No events. Awake, alert. SOB better. No chest pain. Coughing up "pink" sputum and has chest congestion. Remains on Dilt drip. Active Medications Acetaminophen (Tylenol) 650 mg PO Q4H PRN PRN Reason: Pain MILD(1-3)/Fever >100.5/SPICER Dextrose (D50w (25gm) Syringe) 50 ml IV PRN PRN PRN Reason: Hypoglycemia Digoxin (Lanoxin) 0.25 mg PO Q48H [facility] Last Admin: 07/11/19 13:04 Dose: 0.25 mg Documented by: Famotidine (Pepcid) 10 mg PO BID [facility] Last Admin: 07/12/19 10:34 Dose: 10 mg Documented by: Furosemide (Lasix) 40 mg IV QDAY [facility] Last Admin: 07/12/19 10:34 Dose: 40 mg Documented by: Hydralazine HCl (Apresoline) 20 mg IV Q6H PRN PRN Reason: Hypertension Diltiazem HCl (Cardizem/D5w 100mg/100ml) 100 mg in 100 mls @ 5 mls/hr IV TITR [facility]; Protocol Last Admin: 07/11/19 23:20 Dose: 5 mg/hr, 5 mls/hr Documented by: Insulin Glargine (Lantus) 25 units SUB-Q QHS [facility] Last Admin: 07/11/19 21:57 Dose: 25 units Documented by: Insulin Human Regular (Humulin R) 0 units SUB-Q ACHS [facility]; Protocol Last Admin: 07/12/19 14:20 Dose: 1 units Documented by: Levofloxacin (Levaquin) 250 mg PO Q24HR MEME Stop: 07/16/19 10:01 Last Admin: 07/12/19 10:34 Dose: 250 mg Documented by: Ondansetron HCl (Zofran) 4 mg IV Q8H PRN PRN Reason: Nausea And Vomiting Oxycodone/Acetaminophen (Percocet 5/325) 1 tab PO Q6H PRN PRN Reason: Pain, Moderate (4-6) Last Admin: 07/12/19 08:53 Dose: 1 tab Documented by: Sodium Chloride (Sodium Chloride Flush Syringe 10 Ml) 10 ml IV BID MEME Last Admin: 07/12/19 10:35 Dose: 10 ml Documented by: Sodium Chloride (Sodium Chloride Flush Syringe 10 Ml) 10 ml IV PRN PRN PRN Reason: LINE FLUSH Objective Vital Signs - 12hr 07/12/19 07/12/19 07/12/19 05:01 09:32 10:00 Temperature 97.9 F Pulse Rate 47 L 103 H Pulse Rate [ 106 H Apical] Pulse Rate [ 106 H From Monitor] Respiratory 18 20 Rate Blood Pressure 137/76 O2 Sat by Pulse 98 99 100 Oximetry Constitutional: no acute distress, alert Eyes: non-icteric ENT: oropharynx moist Neck: supple Effort: normal Ascultation: Bilateral: rales, rhonchi Cardiovascular: irregular rhythm (tachy, no mrg) Gastrointestinal: normoactive bowel sounds, soft, non-tender, non-distended Integumentary: normal Extremities: no cyanosis, no edema, pink and warm, edema (bilateral lower ext, per patient and family, this is improved) Neurologic: normal mental status, non-focal exam, pupils equal and round, CN II- XII normal Psychiatric: mood appropriate, affect normal CBC and BMP: 07/11/19 04:34 07/11/19 04:34 ABG, PT/INR, D-dimer: ABG POC ABG pH 7.363 (7.35-7.45) 07/10/19 12:03 POC ABG pCO2 34.3 (35-45) L 07/10/19 12:03 POC ABG pO2 100 (80-105) 07/10/19 12:03 POC ABG HCO3 19.5 (22-26 mml/L) 07/10/19 12:03 POC ABG Total CO2 21 (23-27mmol/L) 07/10/19 12:03 POC ABG O2 Sat 98 07/10/19 12:03 PT/INR, D-dimer PT 31.5 Sec. (12.2-14.9) H 07/10/19 11:45 INR 3.11 (0.87-1.13) H 07/10/19 11:45 Abnormal lab findings: Abnormal Labs 07/10/19 07/10/19 07/10/19 11:45 11:45 11:45 WBC 12.5 H RBC 3.56 L Hgb 9.5 L Hct 29.9 L MCH 27 L RDW 15.6 H Plt Count Lymph % (Auto) 5.2 L Lymph # 0.7 L Seg Neutrophils % 89.1 H Seg Neuts % (Manual) Lymphocytes % (Manual) Seg Neutrophils # 11.2 H Lymphocytes # (Manual) PT 31.5 H INR 3.11 H APTT 43.9 H POC ABG pCO2 VBG pH Sodium 131 L Potassium Chloride 92.4 L Carbon Dioxide 19 L BUN 20 H Creatinine 1.4 H Glucose 370 H POC Glucose Hemoglobin A1c Lactic Acid Direct Bilirubin NT-Pro-B Natriuret Pep Albumin Urine WBC (Auto) 07/10/19 07/10/19 07/10/19 11:45 11:45 11:45 WBC RBC Hgb Hct MCH RDW Plt Count Lymph % (Auto) Lymph # Seg Neutrophils % Seg Neuts % (Manual) Lymphocytes % (Manual) Seg Neutrophils # Lymphocytes # (Manual) PT INR APTT POC ABG pCO2 VBG pH 7.272 L Sodium Potassium Chloride Carbon Dioxide BUN Creatinine Glucose POC Glucose Hemoglobin A1c Lactic Acid 3.70 H* Direct Bilirubin 0.4 H NT-Pro-B Natriuret Pep 1548 H Albumin Urine WBC (Auto) 07/10/19 07/10/19 07/10/19 12:03 12:12 12:53 WBC RBC Hgb Hct MCH RDW Plt Count Lymph % (Auto) Lymph # Seg Neutrophils % Seg Neuts % (Manual) Lymphocytes % (Manual) Seg Neutrophils # Lymphocytes # (Manual) PT INR APTT POC ABG pCO2 34.3 L VBG pH Sodium Potassium Chloride Carbon Dioxide BUN Creatinine Glucose POC Glucose Hemoglobin A1c Lactic Acid 3.00 H* Direct Bilirubin NT-Pro-B Natriuret Pep Albumin Urine WBC (Auto) 67.0 H 07/10/19 07/10/19 07/10/19 13:34 13:52 15:50 WBC RBC Hgb Hct MCH RDW Plt Count Lymph % (Auto) Lymph # Seg Neutrophils % Seg Neuts % (Manual) Lymphocytes % (Manual) Seg Neutrophils # Lymphocytes # (Manual) PT INR APTT POC ABG pCO2 VBG pH Sodium Potassium Chloride Carbon Dioxide BUN Creatinine Glucose POC Glucose 279 H 244 H Hemoglobin A1c Lactic Acid 2.70 H* Direct Bilirubin NT-Pro-B Natriuret Pep Albumin Urine WBC (Auto) 07/10/19 07/10/19 07/11/19 19:49 21:43 04:34 WBC RBC 3.34 L Hgb 9.1 L Hct 28.2 L MCH 27 L RDW 15.7 H Plt Count 125 L Lymph % (Auto) Lymph # Seg Neutrophils % Seg Neuts % (Manual) 93.0 H Lymphocytes % (Manual) 4.0 L Seg Neutrophils # Lymphocytes # (Manual) 0.3 L PT INR APTT POC ABG pCO2 VBG pH Sodium Potassium Chloride Carbon Dioxide BUN Creatinine Glucose POC Glucose 202 H Hemoglobin A1c 6.5 H Lactic Acid Direct Bilirubin NT-Pro-B Natriuret Pep Albumin Urine WBC (Auto) 07/11/19 07/11/19 07/11/19 04:34 15:56 20:59 WBC RBC Hgb Hct MCH RDW Plt Count Lymph % (Auto) Lymph # Seg Neutrophils % Seg Neuts % (Manual) Lymphocytes % (Manual) Seg Neutrophils # Lymphocytes # (Manual) PT INR APTT POC ABG pCO2 VBG pH Sodium 132 L Potassium 5.5 H D Chloride Carbon Dioxide BUN 25 H Creatinine 1.5 H Glucose 236 H POC Glucose 401 H 397 H Hemoglobin A1c Lactic Acid Direct Bilirubin NT-Pro-B Natriuret Pep Albumin 3.5 L Urine WBC (Auto) 07/12/19 07/12/19 09:26 12:09 WBC RBC Hgb Hct MCH RDW Plt Count Lymph % (Auto) Lymph # Seg Neutrophils % Seg Neuts % (Manual) Lymphocytes % (Manual) Seg Neutrophils # Lymphocytes # (Manual) PT INR APTT POC ABG pCO2 VBG pH Sodium Potassium Chloride Carbon Dioxide BUN Creatinine Glucose POC Glucose 236 H 261 H Hemoglobin A1c Lactic Acid Direct Bilirubin NT-Pro-B Natriuret Pep Albumin Urine WBC (Auto) Chest x-ray: report reviewed, image reviewed
--- NOTE | 2019-07-12 17:12 | Progress Note ---
Assessment and Plan - Patient Problems (1) Acute exacerbation of congestive heart failure Current Visit: Yes Status: Acute Qualifiers: Heart failure type: combined systolic and diastolic Qualified Code(s): I50.43 - Acute on chronic combined systolic (congestive) and diastolic (congestive) heart failure Plan to address problem: Patient has what appears to be acute exacerbation of heart failure versus pneumonia. We'll admit diurese with IV diuretics. Patient is diuresing very well. Still has significant crackles on exam. Lower extremity edema is improved continue present diuresis. VENANCIO inhibitor. Beta jaye wasn't tolerable (2) Acute respiratory failure with hypoxia Current Visit: Yes Status: Acute Plan to address problem: Patient is stable enough on 2 L of oxygen to transfer to the telemetry unit. No chest pain. Continue diuresis continue nebulizers. Pulmonology following. At present no need for steroids will treat empirically for underlying pneumonia with azithromycin. (3) Atrial fibrillation with RVR Current Visit: Yes Status: Acute Plan to address problem: Recent currently rate suboptimal control on Cardizem drip. Cardiology input with change to by mouth agent. Patient's had a problem with by mouth Cardizem and Lopressor. Patient has not had any problems tolerating Cardizem at this point. (4) DVT prophylaxis Current Visit: Yes Status: Acute Plan to address problem: Continue prophylaxis Lovenox. (5) Right middle lobe pulmonary infiltrate Current Visit: Yes Status: Acute Plan to address problem: Patient with hazy infiltrate in right lower lobe suspected right lower lobe pneumonia. We'll continue to treat Levaquin daily. (6) T2DM (type 2 diabetes mellitus) Current Visit: Yes Status: Chronic Qualifiers: Diabetes mellitus care home insulin use: unspecified oysterman insulin use status Plan to address problem: Patient has diabetes mellitus unsure of exact control current Accu-Cheks within normal limits. We'll resume insulin Lantus 25 units daily at bedtime. History Interval history: Patient today had an episode tachycardia. This had been doing cough. Otherwise hospital course unremarkable. Continue Cardizem drip. Family at bedside all answer to family's satisfaction. Hospitalist Physical - Constitutional Vitals: Temp Pulse Resp BP Pulse Ox 97.9 F 106 H 20 137/76 100 07/12/19 05:01 07/12/19 10:00 07/12/19 10:00 07/12/19 05:01 07/12/19 10:00 General appearance: Present: no acute distress - EENT Eyes: Present: PERRL, EOM intact ENT: hearing intact, clear oral mucosa, dentition normal - Neck Neck: Present: supple, normal ROM - Respiratory Respiratory effort: normal Respiratory: bilateral: rhonchi, wheezing (bilateral) - Cardiovascular Rhythm: regularly irregular - Extremities Extremities: no ischemia, pulses intact, pulses symmetrical, normal temperature, Full ROM Extremity abnormal: edema Peripheral Pulses: within normal limits - Abdominal General gastrointestinal: soft, non-tender, non-distended, normal bowel sounds, no hepatomegaly, no splenomegaly - Integumentary Integumentary: Present: clear, dry - Psychiatric Psychiatric: appropriate mood/affect, intact judgment & insight, cooperative - Neurologic Neurologic: CNII-XII intact, moves all extremities Results - Labs CBC & Chem 7: 07/11/19 04:34 07/11/19 04:34 Labs: Laboratory Last Values WBC 7.2 K/mm3 (4.5-11.0) 07/11/19 04:34 RBC 3.34 M/mm3 (3.65-5.03) L 07/11/19 04:34 Hgb 9.1 gm/dl (10.1-14.3) L 07/11/19 04:34 Hct 28.2 % (30.3-42.9) L 07/11/19 04:34 MCV 85 fl (79-97) 07/11/19 04:34 MCH 27 pg (28-32) L 07/11/19 04:34 MCHC 32 % (30-34) 07/11/19 04:34 RDW 15.7 % (13.2-15.2) H 07/11/19 04:34 Plt Count 125 K/mm3 (140-440) L 07/11/19 04:34 Lymph % (Auto) 5.2 % (13.4-35.0) L 07/10/19 11:45 Morgan % (Auto) 4.6 % (0.0-7.3) 07/10/19 11:45 Eos % (Auto) 0.3 % (0.0-4.3) 07/10/19 11:45 Baso % (Auto) 0.8 % (0.0-1.8) 07/10/19 11:45 Lymph # 0.7 K/mm3 (1.2-5.4) L 07/10/19 11:45 Morgan # 0.6 K/mm3 (0.0-0.8) 07/10/19 11:45 Eos # 0.0 K/mm3 (0.0-0.4) 07/10/19 11:45 Baso # 0.1 K/mm3 (0.0-0.1) 07/10/19 11:45 Add Manual Diff Complete 07/11/19 04:34 Total Counted 100 07/11/19 04:34 Seg Neutrophils % [employer] [facility] [employer] 07/11/19 04:34 Seg Neuts % (Manual) 93.0 % (40.0-70.0) H 07/11/19 04:34 Band Neutrophils % 0 % 07/11/19 04:34 Lymphocytes % (Manual) 4.0 % (13.4-35.0) L 07/11/19 04:34 Reactive Lymphs % (Man) 0 % 07/11/19 04:34 Monocytes % (Manual) 3.0 % (0.0-7.3) 07/11/19 04:34 Eosinophils % (Manual) 0 % (0.0-4.3) 07/11/19 04:34 Basophils % (Manual) 0 % (0.0-1.8) 07/11/19 04:34 Metamyelocytes % 0 % 07/11/19 04:34 Myelocytes % 0 % 07/11/19 04:34 Promyelocytes % 0 % 07/11/19 04:34 Blast Cells % 0 % 07/11/19 04:34 Nucleated RBC % Not Reportable 07/11/19 04:34 Seg Neutrophils # 11.2 K/mm3 (1.8-7.7) H 07/10/19 11:45 Seg Neutrophils # Man 6.7 K/mm3 (1.8-7.7) 07/11/19 04:34 Band Neutrophils # 0.0 K/mm3 07/11/19 04:34 Lymphocytes # (Manual) 0.3 K/mm3 (1.2-5.4) L 07/11/19 04:34 Abs React Lymphs (Man) 0.0 K/mm3 07/11/19 04:34 Monocytes # (Manual) 0.2 K/mm3 (0.0-0.8) 07/11/19 04:34 Eosinophils # (Manual) 0.0 K/mm3 (0.0-0.4) 07/11/19 04:34 Basophils # (Manual) 0.0 K/mm3 (0.0-0.1) 07/11/19 04:34 Metamyelocytes # 0.0 K/mm3 07/11/19 04:34 Myelocytes # 0.0 K/mm3 07/11/19 04:34 Promyelocytes # 0.0 K/mm3 07/11/19 04:34 Blast Cells # 0.0 K/mm3 07/11/19 04:34 WBC Morphology Not Reportable 07/11/19 04:34 Hypersegmented Neuts Not Reportable 07/11/19 04:34 Hyposegmented Neuts Not Reportable 07/11/19 04:34 Hypogranular Neuts Not Reportable 07/11/19 04:34 Smudge Cells Not Reportable 07/11/19 04:34 Toxic Granulation Not Reportable 07/11/19 04:34 Toxic Vacuolation Not Reportable 07/11/19 04:34 Dohle Bodies Not Reportable 07/11/19 04:34 Pelger-Huet Anomaly Not Reportable 07/11/19 04:34 Jeri Rods Not Reportable 07/11/19 04:34 Platelet Estimate Not Reportable 07/11/19 04:34 Clumped Platelets Not Reportable 07/11/19 04:34 Plt Clumps, EDTA Not Reportable 07/11/19 04:34 Large Platelets Not Reportable 07/11/19 04:34 Giant Platelets Not Reportable 07/11/19 04:34 Platelet Satelliting Not Reportable 07/11/19 04:34 Plt Morphology Comment Not Reportable 07/11/19 04:34 RBC Morphology Normal 07/11/19 04:34 Dimorphic RBCs Not Reportable 07/11/19 04:34 Polychromasia Not Reportable 07/11/19 04:34 Hypochromasia Not Reportable 07/11/19 04:34 Poikilocytosis Not Reportable 07/11/19 04:34 Anisocytosis Not Reportable 07/11/19 04:34 Microcytosis Not Reportable 07/11/19 04:34 Macrocytosis Not Reportable 07/11/19 04:34 Spherocytes Not Reportable 07/11/19 04:34 Pappenheimer Bodies Not Reportable 07/11/19 04:34 Sickle Cells Not Reportable 07/11/19 04:34 Target Cells Not Reportable 07/11/19 04:34 Tear Drop Cells Not Reportable 07/11/19 04:34 Ovalocytes Not Reportable 07/11/19 04:34 Helmet Cells Not Reportable 07/11/19 04:34 Akins-Onslow Bodies Not Reportable 07/11/19 04:34 [place] Rings Not Reportable 07/11/19 04:34 Yandy Cells Not Reportable 07/11/19 04:34 Bite Cells Not Reportable 07/11/19 04:34 Crenated Cell Not Reportable 07/11/19 04:34 Elliptocytes Not Reportable 07/11/19 04:34 Acanthocytes (Spur) Not Reportable 07/11/19 04:34 Rouleaux Not Reportable 07/11/19 04:34 Hemoglobin C Crystals Not Reportable 07/11/19 04:34 Schistocytes Not Reportable 07/11/19 04:34 Malaria parasites Not Reportable 07/11/19 04:34 Hayden Bodies Not Reportable 07/11/19 04:34 Hem Pathologist Commnt No 07/11/19 04:34 PT 31.5 Sec. (12.2-14.9) H 07/10/19 11:45 INR 3.11 (0.87-1.13) H 07/10/19 11:45 APTT 43.9 Sec. (24.2-36.6) H 07/10/19 11:45 POC ABG pH 7.363 (7.35-7.45) 07/10/19 12:03 POC ABG pCO2 34.3 (35-45) L 07/10/19 12:03 POC ABG pO2 100 (80-105) 07/10/19 12:03 POC ABG HCO3 19.5 (22-26 mml/L) 07/10/19 12:03 POC ABG Total CO2 21 (23-27mmol/L) 07/10/19 12:03 POC ABG O2 Sat 98 07/10/19 12:03 POC ABG Base Excess -6 ((-2) - (+3)mmol/L) 07/10/19 12:03 VBG pH 7.272 (7.320-7.420) L 07/10/19 11:45 FiO2 60 % 07/10/19 12:03 Sodium 132 mmol/L (137-145) L 07/11/19 04:34 Potassium 5.5 mmol/L (3.6-5.0) H D 07/11/19 04:34 Chloride 98.7 mmol/L (98-107) 07/11/19 04:34 Carbon Dioxide 22 mmol/L (22-30) 07/11/19 04:34 Anion Gap 17 mmol/L 07/11/19 04:34 BUN 25 mg/dL (7-17) H 07/11/19 04:34 Creatinine 1.5 mg/dL (0.7-1.2) H 07/11/19 04:34 Estimated GFR 34 ml/min 07/11/19 04:34 BUN/Creatinine Ratio 17 % 07/11/19 04:34 Glucose 236 mg/dL (65-100) H 07/11/19 04:34 POC Glucose 261 (70-105) H 07/12/19 12:09 Hemoglobin A1c 6.5 % (4-6) H 07/10/19 19:49 Lactic Acid 2.70 mmol/L (0.7-2.0) H* 07/10/19 13:34 Calcium 8.8 mg/dL (8.4-10.2) 07/11/19 04:34 Magnesium 2.10 mg/dL (1.7-2.3) 07/10/19 11:45 Total Bilirubin 0.80 mg/dL (0.1-1.2) 07/11/19 04:34 Direct Bilirubin 0.4 mg/dL (0-0.2) H 07/10/19 11:45 Indirect Bilirubin 0.4 mg/dL 07/10/19 11:45 AST 29 units/L (5-40) 07/11/19 04:34 ALT 16 units/L (7-56) 07/11/19 04:34 Alkaline Phosphatase 65 units/L (35-129) 07/11/19 04:34 Total Creatine Kinase 40 units/L (30-135) 07/10/19 11:45 CK-MB (CK-2) 1.4 ng/mL (0.0-4.0) 07/10/19 11:45 CK-MB (CK-2) Rel Index 3.5 (0-4) 07/10/19 11:45 Troponin T < 0.010 ng/mL (0.00-0.029) 07/10/19 11:45 NT-Pro-B Natriuret Pep 1548 pg/mL (0-900) H 07/10/19 11:45 Total Protein 7.5 g/dL (6.3-8.2) 07/11/19 04:34 Albumin 3.5 g/dL (3.9-5) L 07/11/19 04:34 Albumin/Globulin Ratio 0.9 % 07/11/19 04:34 Urine Color Leida (Yellow) 07/10/19 12:12 Urine Turbidity Cloudy (Clear) 07/10/19 12:12 Urine pH 5.0 (5.0-7.0) 07/10/19 12:12 Ur Specific [place] 1.017 (1.003-1.030) 07/10/19 12:12 Urine Protein 100 mg/dl mg/dL (Negative) 07/10/19 12:12 Urine Glucose (UA) 50 mg/dL (Negative) 07/10/19 12:12 Urine Ketones Neg mg/dL (Negative) 07/10/19 12:12 Urine Blood Sm (Negative) 07/10/19 12:12 Urine Nitrite Neg (Negative) 07/10/19 12:12 Urine Bilirubin Neg (Negative) 07/10/19 12:12 Urine Urobilinogen < 2.0 mg/dL (<2.0) 07/10/19 12:12 Ur Leukocyte Esterase Lg (Negative) 07/10/19 12:12 Urine WBC (Auto) 67.0 /HPF (0.0-6.0) H 07/10/19 12:12 Urine RBC (Auto) 7.0 /HPF (0.0-6.0) 07/10/19 12:12 U Epithel Cells (Auto) < 1.0 /HPF (0-13.0) 07/10/19 12:12 Urine Bacteria (Auto) 1+ /HPF (Negative) 07/10/19 12:12 Urine WBC Clumps 3+ /HPF 07/10/19 12:12 Urine Mucus Few /HPF 07/10/19 12:12 Blood Type B POSITIVE 07/10/19 11:45 Antibody Screen Negative 07/10/19 11:45 Active Medications - Current Medications Current Medications: Generic Name Dose Route Start Last Admin Trade Name Freq PRN Reason Stop Dose Admin Acetaminophen 650 mg 07/10/19 19:06 Tylenol PO Q4H PRN Pain MILD(1-3)/Fever >100.5/SPICER Dextrose 50 ml 07/11/19 12:12 D50w (25gm) Syringe IV PRN PRN Hypoglycemia Digoxin 0.25 mg 07/11/19 13:00 07/11/19 13:04 Lanoxin PO 0.25 mg Q48H MEME Administration Famotidine 10 mg 07/12/19 10:00 07/12/19 10:34 Pepcid PO 10 mg BID MEME Administration Furosemide 40 mg 07/11/19 13:00 07/12/19 10:34 Lasix IV 40 mg QDAY MEME Administration Hydralazine HCl 20 mg 07/11/19 12:15 Apresoline IV Q6H PRN Hypertension Diltiazem HCl 100 mg in 100 mls @ 5 mls/hr 07/10/19 12:30 07/11/19 23:20 Cardizem/D5w 100mg/100ml IV 5 mg/hr TITR MEME 5 mls/hr Administration Protocol 5 MG/HR Insulin Glargine 25 units 07/11/19 22:00 07/11/19 21:57 Lantus SUB-Q 25 units QHS MEME Administration Insulin Human Regular 0 units 07/11/19 16:30 07/12/19 14:20 Humulin R SUB-Q 1 units ACHS MEME Administration Protocol Levofloxacin 250 mg 07/12/19 10:00 07/12/19 10:34 Levaquin PO 07/16/19 10:01 250 mg Q24HR MEME Administration Ondansetron HCl 4 mg 07/10/19 19:06 Zofran IV Q8H PRN Nausea And Vomiting Oxycodone/Acetaminophen 1 tab 07/10/19 19:06 07/12/19 08:53 Percocet 5/325 PO 1 tab Q6H PRN Administration Pain, Moderate (4-6) Sodium Chloride 10 ml 07/10/19 22:00 07/12/19 10:35 Sodium Chloride Flush Syringe 10 Ml IV 10 ml BID MEME Administration Sodium Chloride 10 ml 07/10/19 19:06 Sodium Chloride Flush Syringe 10 Ml IV PRN PRN LINE FLUSH
[2019-07-12] MEDS: dilTIAZem/D5W 100 MG/100 ML BAG IV SCH (20:55)
[2019-07-12] MEDS: INSULIN GLARGINE 100 UNITS/ML SUB-Q SCH (22:41)
[2019-07-13 05:51] LABS: Basophils % (Auto) 0.4 % (0.0-1.8); Eosinophils # (Auto) 0.1 K/mm3 (0.0-0.4); Eosinophils % (Auto) 1.8 % (0.0-4.3); Hemoglobin 8.8 gm/dl (10.1-14.3); Lymphocytes # (Auto) 0.8 K/mm3 (1.2-5.4); Lymphocytes % (Auto) 9.9 % (13.4-35.0); Mean Corpuscular HGB Conc 34 % (30-34); Mean Corpuscular Volume 83 fl (79-97); Monocytes # (Auto) 0.6 K/mm3 (0.0-0.8); Monocytes % (Auto) 7.6 % (0.0-7.3); Platelet Count 177 K/mm3 (140-440); Red Blood Count 3.14 M/mm3 (3.65-5.03); Red Cell Distribution Width 15.8 % (13.2-15.2)
[2019-07-13 05:52] LABS: Calcium 8.7 mg/dL (8.4-10.2)
[2019-07-13 05:54] LABS: INR 2.4 (0.87-1.13)
--- NOTE | 2019-07-13 08:10 | XRay Report ---
CHEST 1 VIEW INDICATION: chf. COMPARISON: 07/10/2019 FINDINGS: Support devices: None. Heart: Mild cardiomegaly and central pulmonary venous congestion appear stable. Lungs/Pleura: There is chronic scarring in the lateral right upper lobe. Underlying chronic interstit ial changes are also identified. No evidence for consolidation, pleural effusion or pneumothorax. Additional findings: None. IMPRESSION: Mild cardiomegaly and pulmonary venous congestion. Chronic interstitial lung findings. No overwhelmi ng change since 07/10/2019. Signer Name: Daren Vargas Jr, MD Signed: 07/13/2019 8:06 AM Workstation Name: [id number]
[2019-07-13] MEDS: INSULIN REGULAR, HUMAN 100 UNITS/1 ML SUB-Q SCH ×4 (08:28→22:04)
[2019-07-13] MEDS: levoFLOXacin 250 MG TAB PO SCH (10:27)
[2019-07-13] MEDS: guaiFENesin ER 600 MG TAB PO SCH ×2 (10:27→22:03)
[2019-07-13] MEDS: FAMOTIDINE 10 MG TAB PO SCH ×2 (10:27→22:03)
[2019-07-13] MEDS: FUROSEMIDE 40 MG/4 ML INJ IV SCH ×2 (10:27→18:32)
--- NOTE | 2019-07-13 10:47 | Progress Note ---
Assessment and Plan Acute congestive heart failure exacerbation Chronic atrial fibrillation Acute renal failure Anemia Recommendations Continue IV diuretics. Echocardiogram for left ventricular function assessment. Warfarin is on hold while further ischemic workup is being considered. Continue rate control medications for her chronic atrial fibrillation. We will discontinue IV diltiazem and use oral Diltiazem 60mg every 6hrs. Oral anticoagulation therapy will be continued in the outpatient setting. Subjective Date of service: 07/13/19 Principal diagnosis: acute respiratory failure Interval history: Patient with shortness of breath, coughs and congestion. Noted a trend downwards on HCT, from 29.9 on presentation to 26 today. Short burst of NSVT seen on telemetry. Objective Vital Signs Temp Pulse Pulse Resp BP Pulse Ox 07/13/19 10:00 95 07/13/19 08:03 98.2 F 18 147/55 07/13/19 04:47 97.3 F L 50 L 22 122/53 99 07/12/19 23:25 97.9 F 56 L 20 120/49 97 07/12/19 22:00 105 H 152 H 22 98 07/12/19 20:39 98.1 F 152 H 23 146/77 98 07/12/19 20:34 98 - Physical Examination General: No Apparent Distress HEENT: Positive: PERRL Neck: Positive: neck supple Cardiac: Positive: irregularly irregular Lungs: Positive: Decreased Breath Sounds Neuro: Positive: Grossly Intact Extremities: Present: +1 Edema - Labs and Meds Coagulation 07/13/19 Range/Units 05:13 PT 25.7 H (12.2-14.9) Sec. INR 2.40 H (0.87-1.13) CBC 07/13/19 Range/Units 05:13 WBC 7.8 (4.5-11.0) K/mm3 RBC 3.14 L (3.65-5.03) M/mm3 Hgb 8.8 L (10.1-14.3) gm/dl Hct 26.0 L (30.3-42.9) % Plt Count 177 (140-440) K/mm3 Lymph # 0.8 L (1.2-5.4) K/mm3 [place] # 0.6 (0.0-0.8) K/mm3 Eos # 0.1 (0.0-0.4) K/mm3 Baso # 0.0 (0.0-0.1) K/mm3 Comprehensive Metabolic Panel 07/13/19 Range/Units 05:13 Sodium 134 L (137-145) mmol/L Potassium 4.1 D (3.6-5.0) mmol/L Chloride 98.5 (98-107) mmol/L Carbon Dioxide 23 (22-30) mmol/L BUN 45 H (7-17) mg/dL Creatinine 1.5 H (0.7-1.2) mg/dL Glucose 192 H (65-100) mg/dL Calcium 8.7 (8.4-10.2) mg/dL - Imaging and Cardiology EKG: image reviewed
--- NOTE | 2019-07-13 13:16 | Event Note ---
Date: 07/13/19 Patient's echocardiogram shows a severely thickened and calcified mitral valve leaflet and mitral valve apparatus, with restricted leaflet opening and Doppler mean gradient of greater than 5 mmHg. Findings are consistent with at least moderate mitral stenosis, likely the primary etiology of her recurrent heart failure, severely dilated left atrium and chronic atrial fibrillation. The left ventricular systolic function is moderately impaired, ejection fraction is estimated at 35-40%. We will discuss these findings with the patient, and recommend a right and left heart catheterization with an ultimate goal to possible valve replacement surgery as definitive management.
[2019-07-13] MEDS: DIGOXIN 0.25 MG TAB PO SCH (13:37)
[2019-07-13] MEDS: dilTIAZem 60 MG TAB PO SCH ×3 (13:37→23:15)
--- NOTE | 2019-07-13 13:54 | Progress Note ---
Assessment and Plan Imp: 1. Afib with rapid VR 2. UTI 3. Acute CHF and pulm edema related to above; r/o pneumonia 4. [place] 5. ABBY, off CPAP x years 6. Acute respiratory failure, hypoxia 7. Dilated CMP 8. Mitral stenosis 9. Pulm HTN due to L-sided cardiac disease Rec: 1. Afib as per cardiology recs 2. Consider heparin bridge when INR less than 2 3. Diuresis to be increased in light of Echo findings 4. Cont. Levaquin versus urine E.coli and this should also cover any possible pulmonary infection as well 5. Benefits of CPAP were discussed; needs repeat sleep studies ROB as outpatient and this was discussed 6. Will try to review old [place] CXRs & cont. to f/u CXRs periodically s/p diuresis; if CXR fails to improve or she does not improve clinically consider HRCT chest +/- outpatient PFTs 7. Wean off O2 to keep sats > 88% Plan of care reviewed w/ patient, she understands/agrees; d/w Dr. Gong as well Subjective Date of service: 07/13/19 Principal diagnosis: acute respiratory failure Interval history: No events. Awake, alert. SOB better. No chest pain. Coughing up clear to white sputum and has chest congestion. Remains on Dilt drip. Active Medications Acetaminophen (Tylenol) 650 mg PO Q4H PRN PRN Reason: Pain MILD(1-3)/Fever >100.5/SPICER Dextrose (D50w (25gm) Syringe) 50 ml IV PRN PRN PRN Reason: Hypoglycemia Digoxin (Lanoxin) 0.25 mg PO Q48H [facility] Last Admin: 07/13/19 13:37 Dose: 0.25 mg Documented by: Diltiazem HCl (Cardizem) 60 mg PO Q6HR [facility] Last Admin: 07/13/19 13:37 Dose: 60 mg Documented by: Famotidine (Pepcid) 10 mg PO BID [facility] Last Admin: 07/13/19 10:27 Dose: 10 mg Documented by: Furosemide (Lasix) 40 mg IV 0600,1800 [facility] Guaifenesin (Mucinex Er) 600 mg PO BID [facility] Last Admin: 07/13/19 10:27 Dose: 600 mg Documented by: Hydralazine HCl (Apresoline) 20 mg IV Q6H PRN PRN Reason: Hypertension Insulin Glargine (Lantus) 25 units SUB-Q QHS [facility] Last Admin: 07/12/19 22:41 Dose: 25 units Documented by: Insulin Human Regular (Humulin R) 0 units SUB-Q ACHS [facility]; Protocol Last Admin: 07/13/19 13:36 Dose: 6 units Documented by: Levofloxacin (Levaquin) 250 mg PO Q24HR [facility] Stop: 07/16/19 10:01 Last Admin: 07/13/19 10:27 Dose: 250 mg Documented by: Ondansetron HCl (Zofran) 4 mg IV Q8H PRN PRN Reason: Nausea And Vomiting Oxycodone/Acetaminophen (Percocet 5/325) 1 tab PO Q6H PRN PRN Reason: Pain, Moderate (4-6) Last Admin: 07/12/19 21:03 Dose: 1 tab Documented by: Sodium Chloride (Sodium Chloride Flush Syringe 10 Ml) 10 ml IV BID [facility] Last Admin: 07/13/19 10:27 Dose: 10 ml Documented by: Sodium Chloride (Sodium Chloride Flush Syringe 10 Ml) 10 ml IV PRN PRN PRN Reason: LINE FLUSH Spironolactone (Aldactone) 25 mg PO QDAY [facility] Objective Vital Signs - 12hr 07/13/19 07/13/19 07/13/19 04:47 08:03 10:00 Temperature 97.3 F L 98.2 F Pulse Rate 50 L Respiratory 22 18 Rate Blood Pressure 122/53 147/55 O2 Sat by Pulse 99 95 Oximetry 07/13/19 07/13/19 12:48 13:37 Temperature 98.0 F Pulse Rate 100 H Respiratory 18 Rate Blood Pressure 142/50 142/52 O2 Sat by Pulse 89 Oximetry Constitutional: no acute distress, alert Eyes: non-icteric ENT: oropharynx moist Neck: supple Effort: normal Ascultation: Bilateral: wheezes, rales, rhonchi Cardiovascular: irregular rhythm (tachy, no mrg) Gastrointestinal: normoactive bowel sounds, soft, non-tender, non-distended Integumentary: normal Extremities: no cyanosis, no edema, pink and warm, edema (bilateral lower ext, per patient and family, this is improved) Neurologic: normal mental status, non-focal exam, pupils equal and round, CN II- XII normal Psychiatric: mood appropriate, affect normal CBC and BMP: 07/13/19 05:13 07/13/19 05:13 ABG, PT/INR, D-dimer: ABG POC ABG pH 7.363 (7.35-7.45) 07/10/19 12:03 POC ABG pCO2 34.3 (35-45) L 07/10/19 12:03 POC ABG pO2 100 (80-105) 07/10/19 12:03 POC ABG HCO3 19.5 (22-26 mml/L) 07/10/19 12:03 POC ABG Total CO2 21 (23-27mmol/L) 07/10/19 12:03 POC ABG O2 Sat 98 07/10/19 12:03 PT/INR, D-dimer PT 25.7 Sec. (12.2-14.9) H 07/13/19 05:13 INR 2.40 (0.87-1.13) H 07/13/19 05:13 Abnormal lab findings: Abnormal Labs 07/10/19 07/10/19 07/10/19 11:45 11:45 11:45 WBC 12.5 H RBC 3.56 L Hgb 9.5 L Hct 29.9 L MCH 27 L RDW 15.6 H Plt Count Lymph % (Auto) 5.2 L [place] % (Auto) Lymph # 0.7 L Seg Neutrophils % 89.1 H Seg Neuts % (Manual) Lymphocytes % (Manual) Seg Neutrophils # 11.2 H Lymphocytes # (Manual) PT 31.5 H INR 3.11 H APTT 43.9 H POC ABG pCO2 VBG pH Sodium 131 L Potassium Chloride 92.4 L Carbon Dioxide 19 L BUN 20 H Creatinine 1.4 H Glucose 370 H POC Glucose Hemoglobin A1c Lactic Acid Magnesium Direct Bilirubin NT-Pro-B Natriuret Pep Albumin Urine WBC (Auto) 07/10/19 07/10/19 07/10/19 11:45 11:45 11:45 WBC RBC Hgb Hct MCH RDW Plt Count Lymph % (Auto) [place] % (Auto) Lymph # Seg Neutrophils % Seg Neuts % (Manual) Lymphocytes % (Manual) Seg Neutrophils # Lymphocytes # (Manual) PT INR APTT POC ABG pCO2 VBG pH 7.272 L Sodium Potassium Chloride Carbon Dioxide BUN Creatinine Glucose POC Glucose Hemoglobin A1c Lactic Acid 3.70 H* Magnesium Direct Bilirubin 0.4 H NT-Pro-B Natriuret Pep 1548 H Albumin Urine WBC (Auto) 07/10/19 07/10/19 07/10/19 12:03 12:12 12:53 WBC RBC Hgb Hct MCH RDW Plt Count Lymph % (Auto) [place] % (Auto) Lymph # Seg Neutrophils % Seg Neuts % (Manual) Lymphocytes % (Manual) Seg Neutrophils # Lymphocytes # (Manual) PT INR APTT POC ABG pCO2 34.3 L VBG pH Sodium Potassium Chloride Carbon Dioxide BUN Creatinine Glucose POC Glucose Hemoglobin A1c Lactic Acid 3.00 H* Magnesium Direct Bilirubin NT-Pro-B Natriuret Pep Albumin Urine WBC (Auto) 67.0 H 07/10/19 07/10/19 07/10/19 13:34 13:52 15:50 WBC RBC Hgb Hct MCH RDW Plt Count Lymph % (Auto) [place] % (Auto) Lymph # Seg Neutrophils % Seg Neuts % (Manual) Lymphocytes % (Manual) Seg Neutrophils # Lymphocytes # (Manual) PT INR APTT POC ABG pCO2 VBG pH Sodium Potassium Chloride Carbon Dioxide BUN Creatinine Glucose POC Glucose 279 H 244 H Hemoglobin A1c Lactic Acid 2.70 H* Magnesium Direct Bilirubin NT-Pro-B Natriuret Pep Albumin Urine WBC (Auto) 07/10/19 07/10/19 07/11/19 19:49 21:43 04:34 WBC RBC 3.34 L Hgb 9.1 L Hct 28.2 L MCH 27 L RDW 15.7 H Plt Count 125 L Lymph % (Auto) [place] % (Auto) Lymph # Seg Neutrophils % Seg Neuts % (Manual) 93.0 H Lymphocytes % (Manual) 4.0 L Seg Neutrophils # Lymphocytes # (Manual) 0.3 L PT INR APTT POC ABG pCO2 VBG pH Sodium Potassium Chloride Carbon Dioxide BUN Creatinine Glucose POC Glucose 202 H Hemoglobin A1c 6.5 H Lactic Acid Magnesium Direct Bilirubin NT-Pro-B Natriuret Pep Albumin Urine WBC (Auto) 07/11/19 07/11/19 07/11/19 04:34 15:56 20:59 WBC RBC Hgb Hct MCH RDW Plt Count Lymph % (Auto) [place] % (Auto) Lymph # Seg Neutrophils % Seg Neuts % (Manual) Lymphocytes % (Manual) Seg Neutrophils # Lymphocytes # (Manual) PT INR APTT POC ABG pCO2 VBG pH Sodium 132 L Potassium 5.5 H D Chloride Carbon Dioxide BUN 25 H Creatinine 1.5 H Glucose 236 H POC Glucose 401 H 397 H Hemoglobin A1c Lactic Acid Magnesium Direct Bilirubin NT-Pro-B Natriuret Pep Albumin 3.5 L Urine WBC (Auto) 07/12/19 07/12/19 07/12/19 09:26 12:09 19:03 WBC RBC Hgb Hct MCH RDW Plt Count Lymph % (Auto) [place] % (Auto) Lymph # Seg Neutrophils % Seg Neuts % (Manual) Lymphocytes % (Manual) Seg Neutrophils # Lymphocytes # (Manual) PT INR APTT POC ABG pCO2 VBG pH Sodium Potassium Chloride Carbon Dioxide BUN Creatinine Glucose POC Glucose 236 H 261 H 278 H Hemoglobin A1c Lactic Acid Magnesium Direct Bilirubin NT-Pro-B Natriuret Pep Albumin Urine WBC (Auto) 07/12/19 07/13/19 07/13/19 21:53 05:13 05:13 WBC RBC 3.14 L Hgb 8.8 L Hct 26.0 L MCH RDW 15.8 H Plt Count Lymph % (Auto) 9.9 L [place] % (Auto) 7.6 H Lymph # 0.8 L Seg Neutrophils % 80.3 H Seg Neuts % (Manual) Lymphocytes % (Manual) Seg Neutrophils # Lymphocytes # (Manual) PT INR APTT POC ABG pCO2 VBG pH Sodium 134 L Potassium Chloride Carbon Dioxide BUN 45 H Creatinine 1.5 H Glucose 192 H POC Glucose 233 H Hemoglobin A1c Lactic Acid Magnesium 2.40 H Direct Bilirubin NT-Pro-B Natriuret Pep Albumin Urine WBC (Auto) 07/13/19 07/13/19 07/13/19 05:13 08:08 12:29 WBC RBC Hgb Hct MCH RDW Plt Count Lymph % (Auto) [place] % (Auto) Lymph # Seg Neutrophils % Seg Neuts % (Manual) Lymphocytes % (Manual) Seg Neutrophils # Lymphocytes # (Manual) PT 25.7 H INR 2.40 H APTT POC ABG pCO2 VBG pH Sodium Potassium Chloride Carbon Dioxide BUN Creatinine Glucose POC Glucose 206 H 300 H Hemoglobin A1c Lactic Acid Magnesium Direct Bilirubin NT-Pro-B Natriuret Pep Albumin Urine WBC (Auto) Chest x-ray: report reviewed, image reviewed (minimal change)
--- NOTE | 2019-07-13 15:19 | Progress Note ---
Assessment and Plan / Acute exacerbation of congestive heart failure 2-D echo showed EF 35-40% Continue diurese with IV diuretics. Patient is diuresing very well. Still has significant crackles on exam. Lower extremity edema is improved, Beta jaye wasn't tolerable, DCI on hold for hyperkalemia in a daily /Acute respiratory failure with hypoxia Due to CHF exacerbation Patient is stable enough on 2 L of oxygen. Continue diuresis continue nebulizers. Pulmonology following. At present no need for steroids will treat empirically for underlying pneumonia with Levaquin / Atrial fibrillation with RVR Recent currently rate suboptimal Status post Cardizem drip Changed to Cardizem and digoxin today Warfarin on hold for possible cardiac cath and elevated INR /Supratherapeutic INR, continue to hold Coumadin and monitor INR daily /Terrence on Possible CKD, Cr ~15-1.3 - likely diabetic nephropathy - con to monitor her /UTI, continue Levaquin for 5 days /Moderate mitral valve stenosis - Echocardiogram shows a severely thickened and calcified mitral valve leaflet and mitral valve apparatus, with restricted leaflet opening and Doppler mean gradient of greater than 5 mmHg. Findings are consistent with at least moderate mitral stenosis. - Planned for right and left cardiac catheterization / Right middle lobe pulmonary infiltrate Patient with hazy infiltrate in right lower lobe suspected right lower lobe pneumonia. We'll continue to treat Levaquin daily. / T2DM (type 2 diabetes mellitus) currently Accu-Cheks bg within normal limits. cont insulin Lantus 25 units daily at bedtime. A1c 6.5 / DVT prophylaxis Continue prophylaxis Lovenox. Brief History 78-year-old woman with a history of chronic atrial fibrillation on rate control strategy and chronic anticoagulation on warfarin. She presented with shortness of breath and edema, clinical and x-ray findings consistent with congestive heart failure. Hospitalist Physical General appearance: Present: no acute distress - EENT Eyes: Present: PERRL, EOM intact ENT: hearing intact, clear oral mucosa, dentition normal - Neck Neck: Present: supple, normal ROM - Respiratory Respiratory effort: normal Respiratory: + bilateral: rhonchi, wheezing (bilateral) - Cardiovascular Rhythm: regularly irregular - Extremities Extremities: no ischemia, pulses intact, pulses symmetrical, normal temperature, Full ROM Extremity abnormal: edema Peripheral Pulses: within normal limits - Abdominal General gastrointestinal: soft, non-tender, non-distended, normal bowel sounds, no hepatomegaly, no splenomegaly - Integumentary Integumentary: Present: clear, dry - Psychiatric Psychiatric: appropriate mood/affect, intact judgment & insight, cooperative - Neurologic Neurologic: CNII-XII intact, moves all extremities Subjective Date of service: 07/13/19 Principal diagnosis: acute respiratory failure Interval history: Patient seen and examined. Medical records and medication list reviewed. No acute event overnight noted by the RN. Patient continued to complaints of cough and difficulty breathing on minimal exertion. She is tolerating diet Discussed plan of care at bedside with patient. Objective - Constitutional Vitals: Vital Signs - 12hr 07/13/19 07/13/19 07/13/19 04:47 08:03 10:00 Temperature 97.3 F L 98.2 F Pulse Rate 50 L Respiratory 22 18 Rate Blood Pressure 122/53 147/55 O2 Sat by Pulse 99 95 Oximetry 07/13/19 07/13/19 12:48 13:37 Temperature 98.0 F Pulse Rate 100 H Respiratory 18 Rate Blood Pressure 142/50 142/52 O2 Sat by Pulse 89 Oximetry - Labs CBC & Chem 7: 07/13/19 05:13 07/14/19 08:59 Labs: Abnormal lab results 07/12/19 07/12/19 07/13/19 Range/Units 19:03 21:53 05:13 RBC 3.14 L (3.65-5.03) M/mm3 Hgb 8.8 L (10.1-14.3) gm/dl Hct 26.0 L (30.3-42.9) % RDW 15.8 H (13.2-15.2) % Lymph % (Auto) 9.9 L (13.4-35.0) % [place] % (Auto) 7.6 H (0.0-7.3) % Lymph # 0.8 L (1.2-5.4) K/mm3 Seg Neutrophils % 80.3 H (40.0-70.0) % PT (12.2-14.9) Sec. INR (0.87-1.13) Sodium (137-145) mmol/L BUN (7-17) mg/dL Creatinine (0.7-1.2) mg/dL Glucose (65-100) mg/dL POC Glucose 278 H 233 H (70-105) Magnesium (1.7-2.3) mg/dL 07/13/19 07/13/19 07/13/19 Range/Units 05:13 05:13 08:08 RBC (3.65-5.03) M/mm3 Hgb (10.1-14.3) gm/dl Hct (30.3-42.9) % RDW (13.2-15.2) % Lymph % (Auto) (13.4-35.0) % [place] % (Auto) (0.0-7.3) % Lymph # (1.2-5.4) K/mm3 Seg Neutrophils % (40.0-70.0) % PT 25.7 H (12.2-14.9) Sec. INR 2.40 H (0.87-1.13) Sodium 134 L (137-145) mmol/L BUN 45 H (7-17) mg/dL Creatinine 1.5 H (0.7-1.2) mg/dL Glucose 192 H (65-100) mg/dL POC Glucose 206 H (70-105) Magnesium 2.40 H (1.7-2.3) mg/dL 07/13/19 Range/Units 12:29 RBC (3.65-5.03) M/mm3 Hgb (10.1-14.3) gm/dl Hct (30.3-42.9) % RDW (13.2-15.2) % Lymph % (Auto) (13.4-35.0) % [place] % (Auto) (0.0-7.3) % Lymph # (1.2-5.4) K/mm3 Seg Neutrophils % (40.0-70.0) % PT (12.2-14.9) Sec. INR (0.87-1.13) Sodium (137-145) mmol/L BUN (7-17) mg/dL Creatinine (0.7-1.2) mg/dL Glucose (65-100) mg/dL POC Glucose 300 H (70-105) Magnesium (1.7-2.3) mg/dL
[2019-07-13] MEDS: oxyCODONE /ACETAMINOPHEN 5-325MG TAB PO PRN (22:02)
[2019-07-13] MEDS: INSULIN GLARGINE 100 UNITS/ML SUB-Q SCH (22:03)
[2019-07-14] MEDS: dilTIAZem 60 MG TAB PO SCH ×3 (06:39→17:28)
[2019-07-14] MEDS: FUROSEMIDE 40 MG/4 ML INJ IV SCH ×2 (07:21→17:29)
[2019-07-14 09:33] LABS: Calcium 8.9 mg/dL (8.4-10.2)
[2019-07-14] MEDS: levoFLOXacin 250 MG TAB PO SCH (10:09)
[2019-07-14] MEDS: guaiFENesin ER 600 MG TAB PO SCH ×2 (10:09→21:49)
[2019-07-14] MEDS: SPIRONOLACTONE 25 MG TAB PO SCH (10:09)
[2019-07-14] MEDS: FAMOTIDINE 10 MG TAB PO SCH ×2 (10:09→21:48)
[2019-07-14] MEDS: INSULIN REGULAR, HUMAN 100 UNITS/1 ML SUB-Q SCH ×4 (10:10→21:49)
--- NOTE | 2019-07-14 10:46 | Progress Note ---
<QUITA REINOSO - Last Filed: 07/14/19 10:48> Assessment and Plan Acute congestive heart failure exacerbation Chronic atrial fibrillation rate controlled with digoxin and diltiazem warfarin is on hold Acute renal failure Anemia UTI Echocardiogram shows a severely thickened and calcified mitral valve leaflet and mitral valve apparatus, with restricted leaflet opening and Doppler mean gradient of greater than 5 mmHg. Findings are consistent with at least moderate mitral stenosis. The left ventricular systolic function is moderately impaired, ejection fraction is estimated at 35-40%. Recommendations A right and left cardiac catheterization has been recommended, but at this time the patient is reluctant to undergo invasive evaluation and wishes to be managed medically. Continue medical management of systolic heart failure, valvular disease and rate controlling agents for her chronic atrial fibrillation. Subjective Date of service: 07/14/19 Principal diagnosis: acute respiratory failure Interval history: Patient with continued shortness of breath, coughs and congestion. No distress noted. Objective Vital Signs Temp Pulse Pulse Resp BP Pulse Ox 07/14/19 07:41 97.5 F L 72 16 119/51 99 07/14/19 06:39 73 111/54 07/14/19 03:06 97.8 F 73 20 111/54 96 07/13/19 23:00 97.7 F 72 20 105/44 95 07/13/19 22:00 101 H 22 96 07/13/19 19:32 98.5 F 51 L 18 155/47 95 07/13/19 18:31 100 H 132/47 07/13/19 16:32 98.6 F 18 132/47 07/13/19 13:37 100 H 142/52 07/13/19 12:48 98.0 F 18 142/50 89 - Physical Examination General: No Apparent Distress HEENT: Positive: PERRL Neck: Positive: neck supple Cardiac: Positive: irregularly irregular Lungs: Positive: Decreased Breath Sounds, Wheezes Neuro: Positive: Grossly Intact - Labs and Meds Comprehensive Metabolic Panel 07/14/19 Range/Units 08:59 Sodium 136 L (137-145) mmol/L Potassium 3.8 (3.6-5.0) mmol/L Chloride 98.4 (98-107) mmol/L Carbon Dioxide 24 (22-30) mmol/L BUN 39 H (7-17) mg/dL Creatinine 1.3 H (0.7-1.2) mg/dL Glucose 143 H (65-100) mg/dL Calcium 8.9 (8.4-10.2) mg/dL <DESTIN LOUIS - Last Filed: 07/14/19 21:58> Assessment and Plan I have seen and evaluated the patient and agree with the assessment and plan. I have discussed the patient's diagnosis of mitral stenosis with the patient at length. Left and right catheterization has been recommended. At this time the patient does not want to undertake the procedure. Will continue medical therapy. Patient will follow up in the outpatient setting to discuss LHC and RHC with dr Davison. Objective Vital Signs Temp Pulse Pulse Resp BP Pulse Ox 07/14/19 21:34 96 07/14/19 17:28 72 129/54 07/14/19 16:36 98.1 F 72 16 129/54 97 07/14/19 11:00 73 73 18 97 07/14/19 08:45 98 07/14/19 07:41 97.5 F L 72 16 119/51 99 07/14/19 06:39 73 111/54 07/14/19 03:06 97.8 F 73 20 111/54 96 07/13/19 23:00 97.7 F 72 20 105/44 95 07/13/19 22:00 101 H 22 96 - Labs and Meds Comprehensive Metabolic Panel 07/14/19 Range/Units 08:59 Sodium 136 L (137-145) mmol/L Potassium 3.8 (3.6-5.0) mmol/L Chloride 98.4 (98-107) mmol/L Carbon Dioxide 24 (22-30) mmol/L BUN 39 H (7-17) mg/dL Creatinine 1.3 H (0.7-1.2) mg/dL Glucose 143 H (65-100) mg/dL Calcium 8.9 (8.4-10.2) mg/dL
--- NOTE | 2019-07-14 13:35 | Progress Note ---
Assessment and Plan Imp: 1. Afib with rapid VR 2. UTI 3. Acute CHF and pulm edema related to above; r/o pneumonia 4. [place] 5. ABBY, off CPAP x years 6. Acute respiratory failure, hypoxia 7. Dilated CMP 8. Mitral stenosis 9. Pulm HTN due to L-sided cardiac disease 10. Normocytic anemia Rec: 1. Afib as per cardiology recs 2. Consider heparin bridge when INR less than 2 3. Diuresis increased in light of Echo findings; doubt obstructive lung disease 4. Cont. Levaquin versus urine E.coli and this should also cover any possible pulmonary infection as well 5. Benefits of CPAP were discussed; needs repeat sleep studies ROB as outpatien t and this was discussed 6. Cont. to f/u CXRs periodically s/p diuresis; if CXR fails to improve or she does not improve clinically consider HRCT chest +/- outpatient PFTs 7. Wean off O2 to keep sats > 88% 8. Consider further anemia work-up 9. Mobilization Plan of care reviewed w/ patient/sister, they understand/agree Subjective Date of service: 07/14/19 Principal diagnosis: acute respiratory failure Interval history: No events. Awake, alert. SOB better. Able to ambulate some in [place]. No chest pain. Coughing up clear to white sputum and has chest congestion. Off Dilt drip. Active Medications Acetaminophen (Tylenol) 650 mg PO Q4H PRN PRN Reason: Pain MILD(1-3)/Fever >100.5/SPICER Dextrose (D50w (25gm) Syringe) 50 ml IV PRN PRN PRN Reason: Hypoglycemia Digoxin (Lanoxin) 0.25 mg PO Q48H [facility] Last Admin: 07/13/19 13:37 Dose: 0.25 mg Documented by: Diltiazem HCl (Cardizem) 60 mg PO Q6HR [facility] Last Admin: 07/14/19 12:07 Dose: 60 mg Documented by: Famotidine (Pepcid) 10 mg PO BID [facility] Last Admin: 07/14/19 10:09 Dose: 10 mg Documented by: Furosemide (Lasix) 40 mg IV 0600,1800 [facility] Last Admin: 07/14/19 07:21 Dose: Not Given Documented by: Guaifenesin (Mucinex Er) 600 mg PO BID [facility] Last Admin: 07/14/19 10:09 Dose: 600 mg Documented by: Hydralazine HCl (Apresoline) 20 mg IV Q6H PRN PRN Reason: Hypertension Insulin Glargine (Lantus) 25 units SUB-Q QHS [facility] Last Admin: 07/13/19 22:03 Dose: 25 units Documented by: Insulin Human Regular (Humulin R) 0 units SUB-Q ACHS [facility]; Protocol Last Admin: 07/14/19 10:10 Dose: Not Given Documented by: Levofloxacin (Levaquin) 250 mg PO Q24HR [facility] Stop: 07/16/19 10:01 Last Admin: 07/14/19 10:09 Dose: 250 mg Documented by: Ondansetron HCl (Zofran) 4 mg IV Q8H PRN PRN Reason: Nausea And Vomiting Oxycodone/Acetaminophen (Percocet 5/325) 1 tab PO Q6H PRN PRN Reason: Pain, Moderate (4-6) Last Admin: 07/13/19 22:02 Dose: 1 tab Documented by: Sodium Chloride (Sodium Chloride Flush Syringe 10 Ml) 10 ml IV BID [facility] Last Admin: 07/14/19 10:09 Dose: 10 ml Documented by: Sodium Chloride (Sodium Chloride Flush Syringe 10 Ml) 10 ml IV PRN PRN PRN Reason: LINE FLUSH Spironolactone (Aldactone) 25 mg PO QDAY [facility] Last Admin: 07/14/19 10:09 Dose: 25 mg Documented by: Objective Vital Signs - 12hr 07/14/19 07/14/19 07/14/19 03:06 06:39 07:41 Temperature 97.8 F 97.5 F L Pulse Rate 73 73 72 Pulse Rate [ Apical] Respiratory 20 16 Rate Blood Pressure 111/54 111/54 119/51 O2 Sat by Pulse 96 99 Oximetry 07/14/19 07/14/19 08:45 11:00 Temperature Pulse Rate 73 Pulse Rate [ 73 Apical] Respiratory 18 Rate Blood Pressure O2 Sat by Pulse 98 97 Oximetry Constitutional: no acute distress, alert Eyes: non-icteric ENT: oropharynx moist Neck: supple Effort: normal Ascultation: Bilateral: wheezes, rales, rhonchi Percussion: Bilateral: not dull Tactile fremitus: Bilateral: normal Cardiovascular: irregular rhythm (tachy, no mrg) Gastrointestinal: normoactive bowel sounds, soft, non-tender, non-distended Integumentary: normal Extremities: no cyanosis, no edema, pink and warm, edema (bilateral lower ext, per patient and family, this is improved) Neurologic: normal mental status, non-focal exam, pupils equal and round, CN II- XII normal Psychiatric: mood appropriate, affect normal CBC and BMP: 07/13/19 05:13 07/14/19 08:59 ABG, PT/INR, D-dimer: ABG POC ABG pH 7.363 (7.35-7.45) 07/10/19 12:03 POC ABG pCO2 34.3 (35-45) L 07/10/19 12:03 POC ABG pO2 100 (80-105) 07/10/19 12:03 POC ABG HCO3 19.5 (22-26 mml/L) 07/10/19 12:03 POC ABG Total CO2 21 (23-27mmol/L) 07/10/19 12:03 POC ABG O2 Sat 98 07/10/19 12:03 PT/INR, D-dimer PT 25.7 Sec. (12.2-14.9) H 07/13/19 05:13 INR 2.40 (0.87-1.13) H 07/13/19 05:13 Abnormal lab findings: Abnormal Labs 07/10/19 07/10/19 07/10/19 11:45 11:45 11:45 WBC 12.5 H RBC 3.56 L Hgb 9.5 L Hct 29.9 L MCH 27 L RDW 15.6 H Plt Count Lymph % (Auto) 5.2 L [place] % (Auto) Lymph # 0.7 L Seg Neutrophils % 89.1 H Seg Neuts % (Manual) Lymphocytes % (Manual) Seg Neutrophils # 11.2 H Lymphocytes # (Manual) PT 31.5 H INR 3.11 H APTT 43.9 H POC ABG pCO2 VBG pH Sodium 131 L Potassium Chloride 92.4 L Carbon Dioxide 19 L BUN 20 H Creatinine 1.4 H Glucose 370 H POC Glucose Hemoglobin A1c Lactic Acid Magnesium Direct Bilirubin NT-Pro-B Natriuret Pep Albumin Urine WBC (Auto) 07/10/19 07/10/19 07/10/19 11:45 11:45 11:45 WBC RBC Hgb Hct MCH RDW Plt Count Lymph % (Auto) [place] % (Auto) Lymph # Seg Neutrophils % Seg Neuts % (Manual) Lymphocytes % (Manual) Seg Neutrophils # Lymphocytes # (Manual) PT INR APTT POC ABG pCO2 VBG pH 7.272 L Sodium Potassium Chloride Carbon Dioxide BUN Creatinine Glucose POC Glucose Hemoglobin A1c Lactic Acid 3.70 H* Magnesium Direct Bilirubin 0.4 H NT-Pro-B Natriuret Pep 1548 H Albumin Urine WBC (Auto) 07/10/19 07/10/19 07/10/19 12:03 12:12 12:53 WBC RBC Hgb Hct MCH RDW Plt Count Lymph % (Auto) [place] % (Auto) Lymph # Seg Neutrophils % Seg Neuts % (Manual) Lymphocytes % (Manual) Seg Neutrophils # Lymphocytes # (Manual) PT INR APTT POC ABG pCO2 34.3 L VBG pH Sodium Potassium Chloride Carbon Dioxide BUN Creatinine Glucose POC Glucose Hemoglobin A1c Lactic Acid 3.00 H* Magnesium Direct Bilirubin NT-Pro-B Natriuret Pep Albumin Urine WBC (Auto) 67.0 H 07/10/19 07/10/19 07/10/19 13:34 13:52 15:50 WBC RBC Hgb Hct MCH RDW Plt Count Lymph % (Auto) [place] % (Auto) Lymph # Seg Neutrophils % Seg Neuts % (Manual) Lymphocytes % (Manual) Seg Neutrophils # Lymphocytes # (Manual) PT INR APTT POC ABG pCO2 VBG pH Sodium Potassium Chloride Carbon Dioxide BUN Creatinine Glucose POC Glucose 279 H 244 H Hemoglobin A1c Lactic Acid 2.70 H* Magnesium Direct Bilirubin NT-Pro-B Natriuret Pep Albumin Urine WBC (Auto) 07/10/19 07/10/19 07/11/19 19:49 21:43 04:34 WBC RBC 3.34 L Hgb 9.1 L Hct 28.2 L MCH 27 L RDW 15.7 H Plt Count 125 L Lymph % (Auto) [place] % (Auto) Lymph # Seg Neutrophils % Seg Neuts % (Manual) 93.0 H Lymphocytes % (Manual) 4.0 L Seg Neutrophils # Lymphocytes # (Manual) 0.3 L PT INR APTT POC ABG pCO2 VBG pH Sodium Potassium Chloride Carbon Dioxide BUN Creatinine Glucose POC Glucose 202 H Hemoglobin A1c 6.5 H Lactic Acid Magnesium Direct Bilirubin NT-Pro-B Natriuret Pep Albumin Urine WBC (Auto) 07/11/19 07/11/1907/11/19 04:34 15:56 20:59 WBC RBC Hgb Hct MCH RDW Plt Count Lymph % (Auto) [place] % (Auto) Lymph # Seg Neutrophils % Seg Neuts % (Manual) Lymphocytes % (Manual) Seg Neutrophils # Lymphocytes # (Manual) PT INR APTT POC ABG pCO2 VBG pH Sodium 132 L Potassium 5.5 H D Chloride Carbon Dioxide BUN 25 H Creatinine 1.5 H Glucose 236 H POC Glucose 401 H 397 H Hemoglobin A1c Lactic Acid Magnesium Direct Bilirubin NT-Pro-B Natriuret Pep Albumin 3.5 L Urine WBC (Auto) 07/12/19 07/12/19 07/12/19 09:26 12:09 19:03 WBC RBC Hgb Hct MCH RDW Plt Count Lymph % (Auto) [place] % (Auto) Lymph # Seg Neutrophils % Seg Neuts % (Manual) Lymphocytes % (Manual) Seg Neutrophils # Lymphocytes # (Manual) PT INR APTT POC ABG pCO2 VBG pH Sodium Potassium Chloride Carbon Dioxide BUN Creatinine Glucose POC Glucose 236 H 261 H 278 H Hemoglobin A1c Lactic Acid Magnesium Direct Bilirubin NT-Pro-B Natriuret Pep Albumin Urine WBC (Auto) 07/12/19 07/13/19 07/13/19 21:53 05:13 05:13 WBC RBC 3.14 L Hgb 8.8 L Hct 26.0 L MCH RDW 15.8 H Plt Count Lymph % (Auto) 9.9 L [place] % (Auto) 7.6 H Lymph # 0.8 L Seg Neutrophils % 80.3 H Seg Neuts % (Manual) Lymphocytes % (Manual) Seg Neutrophils # Lymphocytes # (Manual) PT INR APTT POC ABG pCO2 VBG pH Sodium 134 L Potassium Chloride Carbon Dioxide BUN 45 H Creatinine 1.5 H Glucose 192 H POC Glucose 233 H Hemoglobin A1c Lactic Acid Magnesium 2.40 H Direct Bilirubin NT-Pro-B Natriuret Pep Albumin Urine WBC (Auto) 07/13/19 07/13/19 07/13/19 05:13 08:08 12:29 WBC RBC Hgb Hct MCH RDW Plt Count Lymph % (Auto) [place] % (Auto) Lymph # Seg Neutrophils % Seg Neuts % (Manual) Lymphocytes % (Manual) Seg Neutrophils # Lymphocytes # (Manual) PT 25.7 H INR 2.40 H APTT POC ABG pCO2 VBG pH Sodium Potassium Chloride Carbon Dioxide BUN Creatinine Glucose POC Glucose 206 H 300 H Hemoglobin A1c Lactic Acid Magnesium Direct Bilirubin NT-Pro-B Natriuret Pep Albumin Urine WBC (Auto) 07/13/19 07/13/19 07/14/19 16:39 20:43 07:54 WBC RBC Hgb Hct MCH RDW Plt Count Lymph % (Auto) [place] % (Auto) Lymph # Seg Neutrophils % Seg Neuts % (Manual) Lymphocytes % (Manual) Seg Neutrophils # Lymphocytes # (Manual) PT INR APTT POC ABG pCO2 VBG pH Sodium Potassium Chloride Carbon Dioxide BUN Creatinine Glucose POC Glucose 230 H 253 H 138 H Hemoglobin A1c Lactic Acid Magnesium Direct Bilirubin NT-Pro-B Natriuret Pep Albumin Urine WBC (Auto) 07/14/19 07/14/19 08:59 12:37 WBC RBC Hgb Hct MCH RDW Plt Count Lymph % (Auto) [place] % (Auto) Lymph # Seg Neutrophils % Seg Neuts % (Manual) Lymphocytes % (Manual) Seg Neutrophils # Lymphocytes # (Manual) PT INR APTT POC ABG pCO2 VBG pH Sodium 136 L Potassium Chloride Carbon Dioxide BUN 39 H Creatinine 1.3 H Glucose 143 H POC Glucose 298 H Hemoglobin A1c Lactic Acid Magnesium Direct Bilirubin NT-Pro-B Natriuret Pep Albumin Urine WBC (Auto) Chest x-ray: report reviewed, image reviewed
[2019-07-14] MEDS: INSULIN GLARGINE 100 UNITS/ML SUB-Q SCH (21:48)
[2019-07-14] MEDS: oxyCODONE /ACETAMINOPHEN 5-325MG TAB PO PRN (21:48)
[2019-07-15] MEDS: dilTIAZem 60 MG TAB PO SCH ×4 (02:10→18:39)
[2019-07-15] MEDS: FUROSEMIDE 40 MG/4 ML INJ IV SCH ×2 (06:36→18:39)
[2019-07-15] MEDS: INSULIN REGULAR, HUMAN 100 UNITS/1 ML SUB-Q SCH ×4 (07:15→22:35)
[2019-07-15] MEDS: FAMOTIDINE 10 MG TAB PO SCH ×2 (09:37→22:34)
[2019-07-15] MEDS: SPIRONOLACTONE 25 MG TAB PO SCH (09:37)
[2019-07-15] MEDS: guaiFENesin ER 600 MG TAB PO SCH ×2 (09:37→22:34)
[2019-07-15] MEDS: levoFLOXacin 250 MG TAB PO SCH (09:37)
[2019-07-15 11:35] LABS: INR 1.55 (0.87-1.13)
[2019-07-15 11:36] LABS: Calcium 8.8 mg/dL (8.4-10.2)
--- NOTE | 2019-07-15 11:57 | Progress Note ---
Assessment and Plan Acute congestive heart failure exacerbation Chronic atrial fibrillation rate controlled with digoxin and diltiazem warfarin is on hold Acute renal failure Anemia UTI Echocardiogram shows a severely thickened and calcified mitral valve leaflet and mitral valve apparatus, with restricted leaflet opening and Doppler mean gradient of greater than 5 mmHg. Findings are consistent with at least moderate mitral stenosis. The left ventricular systolic function is moderately impaired, ejection fraction is estimated at 35-40%. Subjective Date of service: 07/15/19 Principal diagnosis: acute respiratory failure Interval history: Patient is undergoing physical therapy. No distress noted. Objective Vital Signs Temp Pulse Resp BP Pulse Ox 07/15/19 10:00 111 H 07/15/19 08:20 97.6 F 48 L 16 155/53 97 07/15/19 07:36 94 07/15/19 06:35 48 L 07/15/19 03:26 98.5 F 48 L 20 141/52 94 07/15/19 00:00 70 07/14/19 23:17 98.2 F 71 20 120/49 89 07/14/19 22:54 71 18 94 07/14/19 21:34 96 07/14/19 19:45 98.1 F 81 18 136/44 96 07/14/19 17:28 72 129/54 07/14/19 16:36 98.1 F 72 16 129/54 97 - Physical Examination General: No Apparent Distress HEENT: Positive: PERRL Neck: Positive: neck supple Cardiac: Positive: irregularly irregular Lungs: Positive: Decreased Breath Sounds Neuro: Positive: Grossly Intact Extremities: Present: +1 Edema - Labs and Meds Coagulation 07/15/19 Range/Units 09:01 PT 18.2 H (12.2-14.9) Sec. INR 1.55 H (0.87-1.13) Comprehensive Metabolic Panel 07/15/19 Range/Units 09:01 Sodium 137 (137-145) mmol/L Potassium 4.2 (3.6-5.0) mmol/L Chloride 97.5 L (98-107) mmol/L Carbon Dioxide 21 L (22-30) mmol/L BUN 34 H (7-17) mg/dL Creatinine 1.2 (0.7-1.2) mg/dL Glucose 172 H (65-100) mg/dL Calcium 8.8 (8.4-10.2) mg/dL
[2019-07-15] MEDS: DIGOXIN 0.25 MG TAB PO SCH (13:15)
--- NOTE | 2019-07-15 14:33 | Progress Note ---
Assessment and Plan / Acute exacerbation of congestive heart failure 2-D echo showed EF 35-40% Continue diurese with IV diuretics. Patient is diuresing very well. Still has significant crackles on exam. Lower extremity edema is improved, Beta jaye wasn't tolerable, ACEI on hold for hyperkalemia /Acute respiratory failure with hypoxia Due to CHF exacerbation Patient is stable enough on 2 L of oxygen. Continue diuresis continue nebulizers. Pulmonology following. At present no need for steroids will treat empirically for underlying pneumonia with Levaquin / Atrial fibrillation with RVR Recent currently rate suboptimal Status post Cardizem drip Changed to Cardizem and digoxin Warfarin on hold for possible cardiac cath and elevated INR /Supratherapeutic INR, continue to hold Coumadin and monitor INR daily /Terrence on Possible CKD, Cr ~15-1.3 - likely diabetic nephropathy - con to monitor her /UTI, continue Levaquin for 5 days /Moderate mitral valve stenosis - Echocardiogram shows a severely thickened and calcified mitral valve leaflet and mitral valve apparatus, with restricted leaflet opening and Doppler mean gradient of greater than 5 mmHg. Findings are consistent with at least moderate mitral stenosis. - Planned for right and left cardiac catheterization - patient deciding / Right middle lobe pulmonary infiltrate Patient with hazy infiltrate in right lower lobe suspected right lower lobe pneumonia. We'll continue to treat Levaquin daily. / T2DM (type 2 diabetes mellitus) currently Accu-Cheks bg within normal limits. cont insulin Lantus 25 units daily at bedtime. A1c 6.5 / DVT prophylaxis Continue prophylaxis Lovenox. Brief History 78-year-old woman with a history of chronic atrial fibrillation on rate control strategy and chronic anticoagulation on warfarin. She presented with shortness of breath and edema, clinical and x-ray findings consistent with congestive heart failure. Hospitalist Physical General appearance: Present: no acute distress - EENT Eyes: Present: PERRL, EOM intact ENT: hearing intact, clear oral mucosa, dentition normal - Neck Neck: Present: supple, normal ROM - Respiratory Respiratory effort: normal Respiratory: + bilateral: rhonchi, wheezing (bilateral) - Cardiovascular Rhythm: regularly irregular - Extremities Extremities: no ischemia, pulses intact, pulses symmetrical, normal temperature, Full ROM Extremity abnormal: edema Peripheral Pulses: within normal limits - Abdominal General gastrointestinal: soft, non-tender, non-distended, normal bowel sounds, no hepatomegaly, no splenomegaly - Integumentary Integumentary: Present: clear, dry - Psychiatric Psychiatric: appropriate mood/affect, intact judgment & insight, cooperative - Neurologic Neurologic: CNII-XII intact, moves all extremities Subjective Date of service: 07/14/19 Principal diagnosis: acute respiratory failure Interval history: Patient seen and examined. Medical records and medication list reviewed. No acute event overnight noted by the RN. Patient continued to complaints of cough and difficulty breathing on minimal exertion. She is tolerating diet Discussed plan of care at bedside with patient. Objective - Constitutional Vitals: Vital Signs - 12hr 07/15/19 07/15/19 07/15/19 03:26 06:35 07:36 Temperature 98.5 F Pulse Rate 48 L 48 L Respiratory 20 Rate Blood Pressure 141/52 O2 Sat by Pulse 94 94 Oximetry 07/15/19 07/15/19 07/15/19 08:20 10:00 11:34 Temperature 97.6 F 98.3 F Pulse Rate 48 L 111 H 51 L Respiratory 16 24 18 Rate Blood Pressure 155/53 132/58 O2 Sat by Pulse 97 92 97 Oximetry - Labs CBC & Chem 7: 07/13/19 05:13 07/15/19 09:01 Labs: Abnormal lab results 07/14/19 07/14/19 07/15/19 Range/Units 16:46 20:19 08:28 PT (12.2-14.9) Sec. INR (0.87-1.13) Chloride (98-107) mmol/L Carbon Dioxide (22-30) mmol/L BUN (7-17) mg/dL Glucose (65-100) mg/dL POC Glucose 197 H 205 H 144 H (70-105) 07/15/19 07/15/19 07/15/19 Range/Units 09:01 09:01 11:41 PT 18.2 H (12.2-14.9) Sec. INR 1.55 H (0.87-1.13) Chloride 97.5 L (98-107) mmol/L Carbon Dioxide 21 L (22-30) mmol/L BUN 34 H (7-17) mg/dL Glucose 172 H (65-100) mg/dL POC Glucose 218 H (70-105)
--- NOTE | 2019-07-15 18:00 | Progress Note ---
Assessment and Plan Imp: 1. Afib with rapid VR 2. UTI 3. Acute CHF and pulm edema related to above; r/o pneumonia 4. [place] 5. ABBY, off CPAP x years 6. Acute respiratory failure, hypoxia 7. Dilated CMP 8. Mitral stenosis 9. Pulm HTN due to L-sided cardiac disease 10. Normocytic anemia Rec: 1. Afib as per cardiology recs 2. Consider heparin bridge when INR less than 2 3. Diuresis increased in light of Echo findings; doubt obstructive lung disease 4. Cont. Levaquin versus urine E.coli and this should also cover any possible pulmonary infection as well 5. Benefits of CPAP were discussed; needs repeat sleep studies ROB as outpatien t and this was discussed 6. Cont. to f/u CXRs periodically s/p diuresis; if CXR fails to improve or she does not improve clinically consider HRCT chest +/- outpatient PFTs 7. Wean off O2 to keep sats > 88% 8. Consider further anemia work-up 9. Mobilization Plan of care reviewed w/ patient/sister, they understand/agree Subjective Date of service: 07/15/19 Principal diagnosis: acute respiratory failure Interval history: No events. Awake, alert. SOB better. Able to ambulate some in [place]. No chest pain. Coughing up clear to white sputum and has chest congestion. Off Dilt drip. Active Medications Acetaminophen (Tylenol) 650 mg PO Q4H PRN PRN Reason: Pain MILD(1-3)/Fever >100.5/SPICER Dextrose (D50w (25gm) Syringe) 50 ml IV PRN PRN PRN Reason: Hypoglycemia Digoxin (Lanoxin) 0.25 mg PO Q48H [facility] Last Admin: 07/13/19 13:37 Dose: 0.25 mg Documented by: Diltiazem HCl (Cardizem) 60 mg PO Q6HR [facility] Last Admin: 07/14/19 12:07 Dose: 60 mg Documented by: Famotidine (Pepcid) 10 mg PO BID [facility] Last Admin: 07/14/19 10:09 Dose: 10 mg Documented by: Furosemide (Lasix) 40 mg IV 0600,1800 [facility] Last Admin: 07/14/19 07:21 Dose: Not Given Documented by: Guaifenesin (Mucinex Er) 600 mg PO BID [facility] Last Admin: 07/14/19 10:09 Dose: 600 mg Documented by: Hydralazine HCl (Apresoline) 20 mg IV Q6H PRN PRN Reason: Hypertension Insulin Glargine (Lantus) 25 units SUB-Q QHS [facility] Last Admin: 07/13/19 22:03 Dose: 25 units Documented by: Insulin Human Regular (Humulin R) 0 units SUB-Q ACHS [facility]; Protocol Last Admin: 07/14/19 10:10 Dose: Not Given Documented by: Levofloxacin (Levaquin) 250 mg PO Q24HR [facility] Stop: 07/16/19 10:01 Last Admin: 07/14/19 10:09 Dose: 250 mg Documented by: Ondansetron HCl (Zofran) 4 mg IV Q8H PRN PRN Reason: Nausea And Vomiting Oxycodone/Acetaminophen (Percocet 5/325) 1 tab PO Q6H PRN PRN Reason: Pain, Moderate (4-6) Last Admin: 07/13/19 22:02 Dose: 1 tab Documented by: Sodium Chloride (Sodium Chloride Flush Syringe 10 Ml) 10 ml IV BID [facility] Last Admin: 07/14/19 10:09 Dose: 10 ml Documented by: Sodium Chloride (Sodium Chloride Flush Syringe 10 Ml) 10 ml IV PRN PRN PRN Reason: LINE FLUSH Spironolactone (Aldactone) 25 mg PO QDAY [facility] Last Admin: 07/14/19 10:09 Dose: 25 mg Documented by: Objective Vital Signs - 12hr 07/15/19 07/15/19 07/15/19 06:35 07:36 08:20 Temperature 97.6 F Pulse Rate 48 L 48 L Respiratory 16 Rate Blood Pressure 155/53 O2 Sat by Pulse 94 97 Oximetry 07/15/19 07/15/19 07/15/19 10:00 11:34 17:00 Temperature 98.3 F 97.8 F Pulse Rate 111 H 51 L 48 L Respiratory 24 18 18 Rate Blood Pressure 132/58 154/51 O2 Sat by Pulse 92 97 98 Oximetry Constitutional: no acute distress, alert Eyes: non-icteric ENT: oropharynx moist Neck: supple Effort: normal Ascultation: Bilateral: wheezes, rales, rhonchi Percussion: Bilateral: not dull Tactile fremitus: Bilateral: normal Cardiovascular: irregular rhythm (tachy, no mrg) Gastrointestinal: normoactive bowel sounds, soft, non-tender, non-distended Integumentary: normal Extremities: no cyanosis, no edema, pink and warm, edema (bilateral lower ext, per patient and family, this is improved) Neurologic: normal mental status, non-focal exam, pupils equal and round, CN II- XII normal Psychiatric: mood appropriate, affect normal CBC and BMP: 07/19/19 06:52 07/19/19 13:45 ABG, PT/INR, D-dimer: ABG POC ABG pH 7.363 (7.35-7.45) 07/10/19 12:03 POC ABG pCO2 34.3 (35-45) L 07/10/19 12:03 POC ABG pO2 100 (80-105) 07/10/19 12:03 POC ABG HCO3 19.5 (22-26 mml/L) 07/10/19 12:03 POC ABG Total CO2 21 (23-27mmol/L) 07/10/19 12:03 POC ABG O2 Sat 98 07/10/19 12:03 PT/INR, D-dimer PT 18.2 Sec. (12.2-14.9) H 07/15/19 09:01 INR 1.55 (0.87-1.13) H 07/15/19 09:01 Abnormal lab findings: Abnormal Labs 07/10/19 07/10/19 07/10/19 11:45 11:45 11:45 WBC 12.5 H RBC 3.56 L Hgb 9.5 L Hct 29.9 L MCH 27 L RDW 15.6 H Plt Count Lymph % (Auto) 5.2 L [place] % (Auto) Lymph # 0.7 L Seg Neutrophils % 89.1 H Seg Neuts % (Manual) Lymphocytes % (Manual) Seg Neutrophils # 11.2 H Lymphocytes # (Manual) PT 31.5 H INR 3.11 H APTT 43.9 H POC ABG pCO2 VBG pH Sodium 131 L Potassium Chloride 92.4 L Carbon Dioxide 19 L BUN 20 H Creatinine 1.4 H Glucose 370 H POC Glucose Hemoglobin A1c Lactic Acid Magnesium Direct Bilirubin NT-Pro-B Natriuret Pep Albumin Urine WBC (Auto) 07/10/19 07/10/19 07/10/19 11:45 11:45 11:45 WBC RBC Hgb Hct MCH RDW Plt Count Lymph % (Auto) [place] % (Auto) Lymph # Seg Neutrophils % Seg Neuts % (Manual) Lymphocytes % (Manual) Seg Neutrophils # Lymphocytes # (Manual) PT INR APTT POC ABG pCO2 VBG pH 7.272 L Sodium Potassium Chloride Carbon Dioxide BUN Creatinine Glucose POC Glucose Hemoglobin A1c Lactic Acid 3.70 H* Magnesium Direct Bilirubin 0.4 H NT-Pro-B Natriuret Pep 1548 H Albumin Urine WBC (Auto) 07/10/19 07/10/19 07/10/19 12:03 12:12 12:53 WBC RBC Hgb Hct MCH RDW Plt Count Lymph % (Auto) [place] % (Auto) Lymph # Seg Neutrophils % Seg Neuts % (Manual) Lymphocytes % (Manual) Seg Neutrophils # Lymphocytes # (Manual) PT INR APTT POC ABG pCO2 34.3 L VBG pH Sodium Potassium Chloride Carbon Dioxide BUN Creatinine Glucose POC Glucose Hemoglobin A1c Lactic Acid 3.00 H* Magnesium Direct Bilirubin NT-Pro-B Natriuret Pep Albumin Urine WBC (Auto) 67.0 H 07/10/19 07/10/19 07/10/19 13:34 13:52 15:50 WBC RBC Hgb Hct MCH RDW Plt Count Lymph % (Auto) [place] % (Auto) Lymph # Seg Neutrophils % Seg Neuts % (Manual) Lymphocytes % (Manual) Seg Neutrophils # Lymphocytes # (Manual) PT INR APTT POC ABG pCO2 VBG pH Sodium Potassium Chloride Carbon Dioxide BUN Creatinine Glucose POC Glucose 279 H 244 H Hemoglobin A1c Lactic Acid 2.70 H* Magnesium Direct Bilirubin NT-Pro-B Natriuret Pep Albumin Urine WBC (Auto) 07/10/19 07/10/19 07/11/19 19:49 21:43 04:34 WBC RBC 3.34 L Hgb 9.1 L Hct 28.2 L MCH 27 L RDW 15.7 H Plt Count 125 L Lymph % (Auto) [place] % (Auto) Lymph # Seg Neutrophils % Seg Neuts % (Manual) 93.0 H Lymphocytes % (Manual) 4.0 L Seg Neutrophils # Lymphocytes # (Manual) 0.3 L PT INR APTT POC ABG pCO2 VBG pH Sodium Potassium Chloride Carbon Dioxide BUN Creatinine Glucose POC Glucose 202 H Hemoglobin A1c 6.5 H Lactic Acid Magnesium Direct Bilirubin NT-Pro-B Natriuret Pep Albumin Urine WBC (Auto) 07/11/19 07/11/19 07/11/19 04:34 15:56 20:59 WBC RBC Hgb Hct MCH RDW Plt Count Lymph % (Auto) [place] % (Auto) Lymph # Seg Neutrophils % Seg Neuts % (Manual) Lymphocytes % (Manual) Seg Neutrophils # Lymphocytes # (Manual) PT INR APTT POC ABG pCO2 VBG pH Sodium 132 L Potassium 5.5 H D Chloride Carbon Dioxide BUN 25 H Creatinine 1.5 H Glucose 236 H POC Glucose 401 H 397 H Hemoglobin A1c Lactic Acid Magnesium Direct Bilirubin NT-Pro-B Natriuret Pep Albumin 3.5 L Urine WBC (Auto) 07/12/19 07/12/19 07/12/19 09:26 12:09 19:03 WBC RBC Hgb Hct MCH RDW Plt Count Lymph % (Auto) [place] % (Auto) Lymph # Seg Neutrophils % Seg Neuts % (Manual) Lymphocytes % (Manual) Seg Neutrophils # Lymphocytes # (Manual) PT INR APTT POC ABG pCO2 VBG pH Sodium Potassium Chloride Carbon Dioxide BUN Creatinine Glucose POC Glucose 236 H 261 H 278 H Hemoglobin A1c Lactic Acid Magnesium Direct Bilirubin NT-Pro-B Natriuret Pep Albumin Urine WBC (Auto) 07/12/19 07/13/19 07/13/19 21:53 05:13 05:13 WBC RBC 3.14 L Hgb 8.8 L Hct 26.0 L MCH RDW 15.8 H Plt Count Lymph % (Auto) 9.9 L [place] % (Auto) 7.6 H Lymph # 0.8 L Seg Neutrophils % 80.3 H Seg Neuts % (Manual) Lymphocytes % (Manual) Seg Neutrophils # Lymphocytes # (Manual) PT INR APTT POC ABG pCO2 VBG pH Sodium 134 L Potassium Chloride Carbon Dioxide BUN 45 H Creatinine 1.5 H Glucose 192 H POC Glucose 233 H Hemoglobin A1c Lactic Acid Magnesium 2.40 H Direct Bilirubin NT-Pro-B Natriuret Pep Albumin Urine WBC (Auto) 07/13/19 07/13/19 07/13/19 05:13 08:08 12:29 WBC RBC Hgb Hct MCH RDW Plt Count Lymph % (Auto) [place] % (Auto) Lymph # Seg Neutrophils % Seg Neuts % (Manual) Lymphocytes % (Manual) Seg Neutrophils # Lymphocytes # (Manual) PT 25.7 H INR 2.40 H APTT POC ABG pCO2 VBG pH Sodium Potassium Chloride Carbon Dioxide BUN Creatinine Glucose POC Glucose 206 H 300 H Hemoglobin A1c Lactic Acid Magnesium Direct Bilirubin NT-Pro-B Natriuret Pep Albumin Urine WBC (Auto) 07/13/19 07/13/19 07/14/19 16:39 20:43 07:54 WBC RBC Hgb Hct MCH RDW Plt Count Lymph % (Auto) [place] % (Auto) Lymph # Seg Neutrophils % Seg Neuts % (Manual) Lymphocytes % (Manual) Seg Neutrophils # Lymphocytes # (Manual) PT INR APTT POC ABG pCO2 VBG pH Sodium Potassium Chloride Carbon Dioxide BUN Creatinine Glucose POC Glucose 230 H 253 H 138 H Hemoglobin A1c Lactic Acid Magnesium Direct Bilirubin NT-Pro-B Natriuret Pep Albumin Urine WBC (Auto) 07/14/19 07/14/19 07/14/19 08:59 12:37 16:46 WBC RBC Hgb Hct MCH RDW Plt Count Lymph % (Auto) [place] % (Auto) Lymph # Seg Neutrophils % Seg Neuts % (Manual) Lymphocytes % (Manual) Seg Neutrophils # Lymphocytes # (Manual) PT INR APTT POC ABG pCO2 VBG pH Sodium 136 L Potassium Chloride Carbon Dioxide BUN 39 H Creatinine 1.3 H Glucose 143 H POC Glucose 298 H 197 H Hemoglobin A1c Lactic Acid Magnesium Direct Bilirubin NT-Pro-B Natriuret Pep Albumin Urine WBC (Auto) 07/14/19 07/15/19 07/15/19 20:19 08:28 09:01 WBC RBC Hgb Hct MCH RDW Plt Count Lymph % (Auto) [place] % (Auto) Lymph # Seg Neutrophils % Seg Neuts % (Manual) Lymphocytes % (Manual) Seg Neutrophils # Lymphocytes # (Manual) PT 18.2 H INR 1.55 H APTT POC ABG pCO2 VBG pH Sodium Potassium Chloride Carbon Dioxide BUN Creatinine Glucose POC Glucose 205 H 144 H Hemoglobin A1c Lactic Acid Magnesium Direct Bilirubin NT-Pro-B Natriuret Pep Albumin Urine WBC (Auto) 07/15/19 07/15/19 07/15/19 09:01 11:41 17:08 WBC RBC Hgb Hct MCH RDW Plt Count Lymph % (Auto) [place] % (Auto) Lymph # Seg Neutrophils % Seg Neuts % (Manual) Lymphocytes % (Manual) Seg Neutrophils # Lymphocytes # (Manual) PT INR APTT POC ABG pCO2 VBG pH Sodium Potassium Chloride 97.5 L Carbon Dioxide 21 L BUN 34 H Creatinine Glucose 172 H POC Glucose 218 H 191 H Hemoglobin A1c Lactic Acid Magnesium Direct Bilirubin NT-Pro-B Natriuret Pep Albumin Urine WBC (Auto) Chest x-ray: report reviewed, image reviewed
[2019-07-15] MEDS: oxyCODONE /ACETAMINOPHEN 5-325MG TAB PO PRN (22:34)
[2019-07-15] MEDS: INSULIN GLARGINE 100 UNITS/ML SUB-Q SCH (22:35)
[2019-07-16] MEDS: dilTIAZem 60 MG TAB PO SCH ×5 (01:08→23:55)
--- NOTE | 2019-07-16 01:45 | Progress Note ---
Assessment and Plan / Acute exacerbation of congestive heart failure 2-D echo showed EF 35-40% Continue diurese with IV diuretics. Patient is diuresing very well. Still has significant crackles on exam. Lower extremity edema is improved, Beta jaye wasn't tolerable, ACEI on hold for hyperkalemia /Acute respiratory failure with hypoxia Due to CHF exacerbation Patient is stable enough on 2 L of oxygen. Continue diuresis continue nebulizers. Pulmonology following. At present no need for steroids will treat empirically for underlying pneumonia with Levaquin / Atrial fibrillation with RVR Recent currently rate suboptimal Status post Cardizem drip Changed to Cardizem and digoxin Warfarin was on hold for possible cardiac cath and elevated INR will place on lovenox for now as INR now low /Supratherapeutic INR, resolved held Coumadin and monitor INR daily /Terrence on Possible CKD, Cr ~15-1.3 - likely diabetic nephropathy - con to monitor her /UTI, continue Levaquin for 5 days /Moderate mitral valve stenosis - Echocardiogram shows a severely thickened and calcified mitral valve leaflet and mitral valve apparatus, with restricted leaflet opening and Doppler mean gradient of greater than 5 mmHg. Findings are consistent with at least moderate mitral stenosis. - Planned for right and left cardiac catheterization - patient deciding if stll undecided will be followed as outpt / Right middle lobe pulmonary infiltrate Patient with hazy infiltrate in right lower lobe suspected right lower lobe pneumonia. We'll continue to treat Levaquin daily. / T2DM (type 2 diabetes mellitus) currently Accu-Cheks bg within normal limits. cont insulin Lantus 25 units daily at bedtime. A1c 6.5 / DVT prophylaxis Continue prophylaxis Lovenox. Brief History 78-year-old woman with a history of chronic atrial fibrillation on rate control strategy and chronic anticoagulation on warfarin. She presented with shortness of breath and edema, clinical and x-ray findings consistent with congestive heart failure. Hospitalist Physical General appearance: Present: no acute distress - EENT Eyes: Present: PERRL, EOM intact ENT: hearing intact, clear oral mucosa, dentition normal - Neck Neck: Present: supple, normal ROM - Respiratory Respiratory effort: normal Respiratory: + bilateral: rhonchi, wheezing (bilateral) - Cardiovascular Rhythm: regularly irregular - Extremities Extremities: no ischemia, pulses intact, pulses symmetrical, normal temperature, Full ROM Extremity abnormal: edema Peripheral Pulses: within normal limits - Abdominal General gastrointestinal: soft, non-tender, non-distended, normal bowel sounds, no hepatomegaly, no splenomegaly - Integumentary Integumentary: Present: clear, dry - Psychiatric Psychiatric: appropriate mood/affect, intact judgment & insight, cooperative - Neurologic Neurologic: CNII-XII intact, moves all extremities Subjective Date of service: 07/15/19 Principal diagnosis: acute respiratory failure Interval history: Patient seen and examined. Medical records and medication list reviewed. No acute event overnight noted by the RN. Patient continued to complaints of cough and difficulty breathing on minimal exertion. She is tolerating diet Discussed plan of care at bedside with patient. Patient still undecided for cardiac cath Objective - Constitutional Vitals: Vital Signs - 12hr 07/15/19 07/15/19 07/15/19 17:00 19:44 20:15 Temperature 97.8 F 98.0 F Pulse Rate 48 L 48 L 48 L Respiratory 18 20 Rate Blood Pressure 154/51 147/49 O2 Sat by Pulse 98 94 Oximetry 07/15/19 07/16/19 22:34 00:09 Temperature 97.8 F Pulse Rate 58 L Respiratory 20 18 Rate Blood Pressure 140/54 O2 Sat by Pulse 93 Oximetry - Labs CBC & Chem 7: 07/13/19 05:13 07/15/19 09:01 Labs: Abnormal lab results 07/15/19 07/15/19 07/15/19 Range/Units 08:28 09:01 09:01 PT 18.2 H (12.2-14.9) Sec. INR 1.55 H (0.87-1.13) Chloride 97.5 L (98-107) mmol/L Carbon Dioxide 21 L (22-30) mmol/L BUN 34 H (7-17) mg/dL Glucose 172 H (65-100) mg/dL POC Glucose 144 H (70-105) 07/15/19 07/15/19 07/15/19 Range/Units 11:41 17:08 21:20 PT (12.2-14.9) Sec. INR (0.87-1.13) Chloride (98-107) mmol/L Carbon Dioxide (22-30) mmol/L BUN (7-17) mg/dL Glucose (65-100) mg/dL POC Glucose 218 H 191 H 201 H (70-105)
[2019-07-16 06:17] LABS: Calcium 8.6 mg/dL (8.4-10.2)
[2019-07-16] MEDS: FUROSEMIDE 40 MG/4 ML INJ IV SCH ×2 (06:19→17:42)
[2019-07-16] MEDS: INSULIN REGULAR, HUMAN 100 UNITS/1 ML SUB-Q SCH ×4 (09:43→21:55)
[2019-07-16] MEDS: FAMOTIDINE 10 MG TAB PO SCH ×2 (09:44→21:52)
[2019-07-16] MEDS: levoFLOXacin 250 MG TAB PO SCH (09:44)
[2019-07-16] MEDS: ENOXAPARIN 100 MG/1 ML INJ SUB-Q SCH ×2 (09:44→21:51)
[2019-07-16] MEDS: SPIRONOLACTONE 25 MG TAB PO SCH (09:44)
[2019-07-16] MEDS: guaiFENesin ER 600 MG TAB PO SCH ×2 (09:44→21:52)
--- NOTE | 2019-07-16 10:46 | Progress Note ---
Assessment and Plan Acute combined congestive heart failure exacerbation Chronic atrial fibrillation rate controlled with digoxin and diltiazem warfarin is on hold; lovenix bridging Degenerative mitral valve disease with severe mitral regurgitation noted on 2 D echo Pulmonary hypertension with a dilated RV and RVA and significant tricuspid r egurgitation Acute renal failure Anemia UTI Echocardiogram shows a severely thickened and calcified mitral valve leaflet and mitral valve apparatus, with restricted leaflet opening and Doppler mean g radient of greater than 5 mmHg. Findings are consistent with at least moderate mitral stenosis. The left ventricular systolic function is moderately impaired, ejection fraction is estimated at 35-40%. Recommendations: Continue current medical management Patient is now agreeable for a LHC and RHC on friday Patient with significant MR and TR, pulmonary hypertension, biatrial enlargement and dilated RV. Mitral valve replacement with TV repair should be considered. Subjective Date of service: 07/16/19 Principal diagnosis: acute respiratory failure Interval history: Patient states that she is breathing better than before Her sister however states that she still gets very short of breath just walking to the bathroom Patient is now agreeable to have a LHC and RHC on friday Objective Vital Signs Temp Pulse Resp BP Pulse Ox 07/16/19 09:44 73 148/61 07/16/19 08:43 97.3 F L 73 18 148/61 91 07/16/19 04:00 97.6 F 70 20 124/49 97 07/16/19 00:09 97.8 F 58 L 18 140/54 93 07/15/19 22:34 20 07/15/19 20:15 48 L 07/15/19 19:44 98.0 F 48 L 20 147/49 94 07/15/19 17:00 97.8 F 48 L 18 154/51 98 07/15/19 11:34 98.3 F 51 L 18 132/58 97 - Physical Examination General: No Apparent Distress HEENT: Positive: PERRL Neck: Positive: neck supple, JVD/HJR Cardiac: Positive: irregularly irregular Lungs: Positive: Rales, Wheezes Neuro: Positive: Grossly Intact Abdomen: Positive: Soft Skin: Positive: Clear Extremities: Present: +1 Edema - Labs and Meds Coagulation 07/15/19 Range/Units 09:01 PT 18.2 H (12.2-14.9) Sec. INR 1.55 H (0.87-1.13) Comprehensive Metabolic Panel 07/15/19 07/16/19 Range/Units 09:01 04:01 Sodium 137 139 (137-145) mmol/L Potassium 4.2 3.6 (3.6-5.0) mmol/L Chloride 97.5 L 98.6 (98-107) mmol/L Carbon Dioxide 21 L 27 (22-30) mmol/L BUN 34 H 29 H (7-17) mg/dL Creatinine 1.2 1.2 (0.7-1.2) mg/dL Glucose 172 H 108 H (65-100) mg/dL Calcium 8.8 8.6 (8.4-10.2) mg/dL - Imaging and Cardiology EKG: image reviewed
--- NOTE | 2019-07-16 11:44 | Progress Note ---
Assessment and Plan 78 y/o female with acute hypoxic respiratory failure secondary to pulmonary edema, afib with RVR, hypertension and presumptive acute renal failure and most likely a UTI that is asymptomatic. 1. CV-Severe valvular disease, most likely the cause of changes seen on CXR. Will continue to follow but agree whole completely with cardiology that left and right heart cath are needed in the situation for accurate numbers. 2. Continue supplemental O2 and wean for sats >88% and or patient comfort levels. Subjective Date of service: 07/16/19 Principal diagnosis: acute respiratory failure Interval history: No acute events. Reviewed cardiology note from today. No documented sats in the computer yet from today. Objective Vital Signs - 12hr 07/16/19 07/16/19 07/16/19 00:09 04:00 08:43 Temperature 97.8 F 97.6 F 97.3 F L Pulse Rate 58 L 70 73 Respiratory 18 20 18 Rate Blood Pressure 140/54 124/49 148/61 O2 Sat by Pulse 93 97 91 Oximetry 07/16/19 09:44 Temperature Pulse Rate 73 Respiratory Rate Blood Pressure 148/61 O2 Sat by Pulse Oximetry Constitutional: no acute distress, alert Eyes: non-icteric ENT: oropharynx moist Neck: supple Effort: normal Ascultation: Bilateral: wheezes, rales, rhonchi Percussion: Bilateral: not dull Tactile fremitus: Bilateral: normal Cardiovascular: irregular rhythm (tachy, no mrg) Gastrointestinal: normoactive bowel sounds, soft, non-tender, non-distended Integumentary: normal Extremities: no cyanosis, no edema, pink and warm, edema (bilateral lower ext, per patient and family, this is improved) Neurologic: normal mental status, non-focal exam, pupils equal and round, CN II- XII normal Psychiatric: mood appropriate, affect normal CBC and BMP: 07/13/19 05:13 07/16/19 04:01 ABG, PT/INR, D-dimer: ABG POC ABG pH 7.363 (7.35-7.45) 07/10/19 12:03 POC ABG pCO2 34.3 (35-45) L 07/10/19 12:03 POC ABG pO2 100 (80-105) 07/10/19 12:03 POC ABG HCO3 19.5 (22-26 mml/L) 07/10/19 12:03 POC ABG Total CO2 21 (23-27mmol/L) 07/10/19 12:03 POC ABG O2 Sat 98 07/10/19 12:03 PT/INR, D-dimer PT 18.2 Sec. (12.2-14.9) H 07/15/19 09:01 INR 1.55 (0.87-1.13) H 07/15/19 09:01 Abnormal lab findings: Abnormal Labs 07/10/19 07/10/19 07/10/19 11:45 11:45 11:45 WBC 12.5 H RBC 3.56 L Hgb 9.5 L Hct 29.9 L MCH 27 L RDW 15.6 H Plt Count Lymph % (Auto) 5.2 L [place] % (Auto) Lymph # 0.7 L Seg Neutrophils % 89.1 H Seg Neuts % (Manual) Lymphocytes % (Manual) Seg Neutrophils # 11.2 H Lymphocytes # (Manual) PT 31.5 H INR 3.11 H APTT 43.9 H POC ABG pCO2 VBG pH Sodium 131 L Potassium Chloride 92.4 L Carbon Dioxide 19 L BUN 20 H Creatinine 1.4 H Glucose 370 H POC Glucose Hemoglobin A1c Lactic Acid Magnesium Direct Bilirubin NT-Pro-B Natriuret Pep Albumin Urine WBC (Auto) 07/10/19 07/10/19 07/10/19 11:45 11:45 11:45 WBC RBC Hgb Hct MCH RDW Plt Count Lymph % (Auto) [place] % (Auto) Lymph # Seg Neutrophils % Seg Neuts % (Manual) Lymphocytes % (Manual) Seg Neutrophils # Lymphocytes # (Manual) PT INR APTT POC ABG pCO2 VBG pH 7.272 L Sodium Potassium Chloride Carbon Dioxide BUN Creatinine Glucose POC Glucose Hemoglobin A1c Lactic Acid 3.70 H* Magnesium Direct Bilirubin 0.4 H NT-Pro-B Natriuret Pep 1548 H Albumin Urine WBC (Auto) 07/10/19 07/10/19 07/10/19 12:03 12:12 12:53 WBC RBC Hgb Hct MCH RDW Plt Count Lymph % (Auto) [place] % (Auto) Lymph # Seg Neutrophils % Seg Neuts % (Manual) Lymphocytes % (Manual) Seg Neutrophils # Lymphocytes # (Manual) PT INR APTT POC ABG pCO2 34.3 L VBG pH Sodium Potassium Chloride Carbon Dioxide BUN Creatinine Glucose POC Glucose Hemoglobin A1c Lactic Acid 3.00 H* Magnesium Direct Bilirubin NT-Pro-B Natriuret Pep Albumin Urine WBC (Auto) 67.0 H 07/10/19 07/10/19 07/10/19 13:34 13:52 15:50 WBC RBC Hgb Hct MCH RDW Plt Count Lymph % (Auto) [place] % (Auto) Lymph # Seg Neutrophils % Seg Neuts % (Manual) Lymphocytes % (Manual) Seg Neutrophils # Lymphocytes # (Manual) PT INR APTT POC ABG pCO2 VBG pH Sodium Potassium Chloride Carbon Dioxide BUN Creatinine Glucose POC Glucose 279 H 244 H Hemoglobin A1c Lactic Acid 2.70 H* Magnesium Direct Bilirubin NT-Pro-B Natriuret Pep Albumin Urine WBC (Auto) 07/10/19 07/10/19 07/11/19 19:49 21:43 04:34 WBC RBC 3.34 L Hgb 9.1 L Hct 28.2 L MCH 27 L RDW 15.7 H Plt Count 125 L Lymph % (Auto) [place] % (Auto) Lymph # Seg Neutrophils % Seg Neuts % (Manual) 93.0 H Lymphocytes % (Manual) 4.0 L Seg Neutrophils # Lymphocytes # (Manual) 0.3 L PT INR APTT POC ABG pCO2 VBG pH Sodium Potassium Chloride Carbon Dioxide BUN Creatinine Glucose POC Glucose 202 H Hemoglobin A1c 6.5 H Lactic Acid Magnesium Direct Bilirubin NT-Pro-B Natriuret Pep Albumin Urine WBC (Auto) 07/11/19 07/11/19 07/11/19 04:34 15:56 20:59 WBC RBC Hgb Hct MCH RDW Plt Count Lymph % (Auto) [place] % (Auto) Lymph # Seg Neutrophils % Seg Neuts % (Manual) Lymphocytes % (Manual) Seg Neutrophils # Lymphocytes # (Manual) PT INR APTT POC ABG pCO2 VBG pH Sodium 132 L Potassium 5.5 H D Chloride Carbon Dioxide BUN 25 H Creatinine 1.5 H Glucose 236 H POC Glucose 401 H 397 H Hemoglobin A1c Lactic Acid Magnesium Direct Bilirubin NT-Pro-B Natriuret Pep Albumin 3.5 L Urine WBC (Auto) 07/12/19 07/12/19 07/12/19 09:26 12:09 19:03 WBC RBC Hgb Hct MCH RDW Plt Count Lymph % (Auto) [place] % (Auto) Lymph # Seg Neutrophils % Seg Neuts % (Manual) Lymphocytes % (Manual) Seg Neutrophils # Lymphocytes # (Manual) PT INR APTT POC ABG pCO2 VBG pH Sodium Potassium Chloride Carbon Dioxide BUN Creatinine Glucose POC Glucose 236 H 261 H 278 H Hemoglobin A1c Lactic Acid Magnesium Direct Bilirubin NT-Pro-B Natriuret Pep Albumin Urine WBC (Auto) 07/12/19 07/13/19 07/13/19 21:53 05:13 05:13 WBC RBC 3.14 L Hgb 8.8 L Hct 26.0 L MCH RDW 15.8 H Plt Count Lymph % (Auto) 9.9 L [place] % (Auto) 7.6 H Lymph # 0.8 L Seg Neutrophils % 80.3 H Seg Neuts % (Manual) Lymphocytes % (Manual) Seg Neutrophils # Lymphocytes # (Manual) PT INR APTT POC ABG pCO2 VBG pH Sodium 134 L Potassium Chloride Carbon Dioxide BUN 45 H Creatinine 1.5 H Glucose 192 H POC Glucose 233 H Hemoglobin A1c Lactic Acid Magnesium 2.40 H Direct Bilirubin NT-Pro-B Natriuret Pep Albumin Urine WBC (Auto) 07/13/19 07/13/19 07/13/19 05:13 08:08 12:29 WBC RBC Hgb Hct MCH RDW Plt Count Lymph % (Auto) [place] % (Auto) Lymph # Seg Neutrophils % Seg Neuts % (Manual) Lymphocytes % (Manual) Seg Neutrophils # Lymphocytes # (Manual) PT 25.7 H INR 2.40 H APTT POC ABG pCO2 VBG pH Sodium Potassium Chloride Carbon Dioxide BUN Creatinine Glucose POC Glucose 206 H 300 H Hemoglobin A1c Lactic Acid Magnesium Direct Bilirubin NT-Pro-B Natriuret Pep Albumin Urine WBC (Auto) 07/13/19 07/13/19 07/14/19 16:39 20:43 07:54 WBC RBC Hgb Hct MCH RDW Plt Count Lymph % (Auto) [place] % (Auto) Lymph # Seg Neutrophils % Seg Neuts % (Manual) Lymphocytes % (Manual) Seg Neutrophils # Lymphocytes # (Manual) PT INR APTT POC ABG pCO2 VBG pH Sodium Potassium Chloride Carbon Dioxide BUN Creatinine Glucose POC Glucose 230 H 253 H 138 H Hemoglobin A1c Lactic Acid Magnesium Direct Bilirubin NT-Pro-B Natriuret Pep Albumin Urine WBC (Auto) 07/14/19 07/14/19 07/14/19 08:59 12:37 16:46 WBC RBC Hgb Hct MCH RDW Plt Count Lymph % (Auto) [place] % (Auto) Lymph # Seg Neutrophils % Seg Neuts % (Manual) Lymphocytes % (Manual) Seg Neutrophils # Lymphocytes # (Manual) PT INR APTT POC ABG pCO2 VBG pH Sodium 136 L Potassium Chloride Carbon Dioxide BUN 39 H Creatinine 1.3 H Glucose 143 H POC Glucose 298 H 197 H Hemoglobin A1c Lactic Acid Magnesium Direct Bilirubin NT-Pro-B Natriuret Pep Albumin Urine WBC (Auto) 07/14/19 07/15/19 07/15/19 20:19 08:28 09:01 WBC RBC Hgb Hct MCH RDW Plt Count Lymph % (Auto) [place] % (Auto) Lymph # Seg Neutrophils % Seg Neuts % (Manual) Lymphocytes % (Manual) Seg Neutrophils # Lymphocytes # (Manual) PT 18.2 H INR 1.55 H APTT POC ABG pCO2 VBG pH Sodium Potassium Chloride Carbon Dioxide BUN Creatinine Glucose POC Glucose 205 H 144 H Hemoglobin A1c Lactic Acid Magnesium Direct Bilirubin NT-Pro-B Natriuret Pep Albumin Urine WBC (Auto) 07/15/19 07/15/19 07/15/19 09:01 11:41 17:08 WBC RBC Hgb Hct MCH RDW Plt Count Lymph % (Auto) [place] % (Auto) Lymph # Seg Neutrophils % Seg Neuts % (Manual) Lymphocytes % (Manual) Seg Neutrophils # Lymphocytes # (Manual) PT INR APTT POC ABG pCO2 VBG pH Sodium Potassium Chloride 97.5 L Carbon Dioxide 21 L BUN 34 H Creatinine Glucose 172 H POC Glucose 218 H 191 H Hemoglobin A1c Lactic Acid Magnesium Direct Bilirubin NT-Pro-B Natriuret Pep Albumin Urine WBC (Auto) 07/15/19 07/16/19 07/16/19 21:20 04:01 09:47 WBC RBC Hgb Hct MCH RDW Plt Count Lymph % (Auto) [place] % (Auto) Lymph # Seg Neutrophils % Seg Neuts % (Manual) Lymphocytes % (Manual) Seg Neutrophils # Lymphocytes # (Manual) PT INR APTT POC ABG pCO2 VBG pH Sodium Potassium Chloride Carbon Dioxide BUN 29 H Creatinine Glucose 108 H POC Glucose 201 H 324 H Hemoglobin A1c Lactic Acid Magnesium Direct Bilirubin NT-Pro-B Natriuret Pep Albumin Urine WBC (Auto)
--- NOTE | 2019-07-16 17:26 | Progress Note ---
Assessment and Plan Assessment and plan: --Moderate mitral valve stenosis Echocardiogram shows a severely thickened and calcified mitral valve leaflet and mitral valve apparatus, with restricted leaflet opening and Doppler mean gradient of greater than 5 mmHg. Findings are consistent with at least moderate mitral stenosis. Right and left heart catheterization on 07/19/2019 --Acute exacerbation of congestive heart failure 2-D echo showed EF 35-40% Continue diurese with IV diuretics. Patient is diuresing very well. Still has significant crackles on exam. Lower extremity edema is improved, Beta jaye wasn't tolerable, ACEI on hold for hyperkalemia --Acute respiratory failure with hypoxia Due to CHF exacerbation Patient is stable enough on 2 L of oxygen. Continue diuresis continue nebulizers. Pulmonology following. At present no need for steroids will treat empirically for underlying pneumonia with Levaquin --Atrial fibrillation with RVR Recent currently rate suboptimal Status post Cardizem drip Changed to Cardizem and digoxin Warfarin was on hold for possible cardiac cath and elevated INR will place on lovenox for now as INR now low --Supratherapeutic INR, resolved held Coumadin and monitor INR daily --Terrence on Possible CKD, Cr ~15-1.3 likely diabetic nephropathy con to monitor her --UTI, continue s/p Levaquin for 5 days --Right middle lobe pulmonary infiltrate Patient with hazy infiltrate in right lower lobe suspected right lower lobe pneumonia. We'll continue to treat Levaquin daily. --T2DM (type 2 diabetes mellitus) currently Accu-Cheks bg within normal limits. cont insulin Lantus 25 units daily at bedtime. A1c 6.5 --DVT prophylaxis Continue prophylaxis Lovenox. History Interval history: Patient seen and examined medical records reviewed Patient complains of mild shortness of breath Denies chest pain Vital signs noted Hospitalist Physical - Constitutional Vitals: Temp Pulse Resp BP Pulse Ox 97.3 F L 72 18 149/65 98 07/16/19 08:43 07/16/19 12:32 07/16/19 12:32 07/16/19 12:32 07/16/19 12:32 General appearance: Present: no acute distress, well-nourished, obese - EENT Eyes: Present: PERRL, EOM intact - Neck Neck: Present: supple, normal ROM - Respiratory Respiratory effort: normal Respiratory: bilateral: diminished, rales, negative: rhonchi, wheezing - Cardiovascular Rhythm: regular Heart Sounds: Present: S1 & S2 - Extremities Extremities: no ischemia Extremity abnormal: edema - Abdominal General gastrointestinal: soft, non-tender, non-distended, normal bowel sounds - Integumentary Integumentary: Present: clear, warm - Psychiatric Psychiatric: appropriate mood/affect, cooperative - Neurologic Neurologic: CNII-XII intact, moves all extremities Results - Labs CBC & Chem 7: 07/13/19 05:13 07/16/19 04:01 Labs: Laboratory Last Values WBC 7.8 K/mm3 (4.5-11.0) 07/13/19 05:13 RBC 3.14 M/mm3 (3.65-5.03) L 07/13/19 05:13 Hgb 8.8 gm/dl (10.1-14.3) L 07/13/19 05:13 Hct 26.0 % (30.3-42.9) L 07/13/19 05:13 MCV 83 fl (79-97) 07/13/19 05:13 MCH 28 pg (28-32) 07/13/19 05:13 MCHC 34 % (30-34) 07/13/19 05:13 RDW 15.8 % (13.2-15.2) H 07/13/19 05:13 Plt Count 177 K/mm3 (140-440) 07/13/19 05:13 Lymph % (Auto) 9.9 % (13.4-35.0) L 07/13/19 05:13 [place] % (Auto) 7.6 % (0.0-7.3) H 07/13/19 05:13 Eos % (Auto) 1.8 % (0.0-4.3) 07/13/19 05:13 Baso % (Auto) 0.4 % (0.0-1.8) 07/13/19 05:13 Lymph # 0.8 K/mm3 (1.2-5.4) L 07/13/19 05:13 [place] # 0.6 K/mm3 (0.0-0.8) 07/13/19 05:13 Eos # 0.1 K/mm3 (0.0-0.4) 07/13/19 05:13 Baso # 0.0 K/mm3 (0.0-0.1) 07/13/19 05:13 Add Manual Diff Complete 07/11/19 04:34 Total Counted 100 07/11/19 04:34 Seg Neutrophils % 80.3 % (40.0-70.0) H 07/13/19 05:13 Seg Neuts % (Manual) 93.0 % (40.0-70.0) H 07/11/19 04:34 Band Neutrophils % 0 % 07/11/19 04:34 Lymphocytes % (Manual) 4.0 % (13.4-35.0) L 07/11/19 04:34 Reactive Lymphs % (Man) 0 % 07/11/19 04:34 Monocytes % (Manual) 3.0 % (0.0-7.3) 07/11/19 04:34 Eosinophils % (Manual) 0 % (0.0-4.3) 07/11/19 04:34 Basophils % (Manual) 0 % (0.0-1.8) 07/11/19 04:34 Metamyelocytes % 0 % 07/11/19 04:34 Myelocytes % 0 % 07/11/19 04:34 Promyelocytes % 0 % 07/11/19 04:34 Blast Cells % 0 % 07/11/19 04:34 Nucleated RBC % Not Reportable 07/11/19 04:34 Seg Neutrophils # 6.3 K/mm3 (1.8-7.7) 07/13/19 05:13 Seg Neutrophils # Man 6.7 K/mm3 (1.8-7.7) 07/11/19 04:34 Band Neutrophils # 0.0 K/mm3 07/11/19 04:34 Lymphocytes # (Manual) 0.3 K/mm3 (1.2-5.4) L 07/11/19 04:34 Abs React Lymphs (Man) 0.0 K/mm3 07/11/19 04:34 Monocytes # (Manual) 0.2 K/mm3 (0.0-0.8) 07/11/19 04:34 Eosinophils # (Manual) 0.0 K/mm3 (0.0-0.4) 07/11/19 04:34 Basophils # (Manual) 0.0 K/mm3 (0.0-0.1) 07/11/19 04:34 Metamyelocytes # 0.0 K/mm3 07/11/19 04:34 Myelocytes # 0.0 K/mm3 07/11/19 04:34 Promyelocytes # 0.0 K/mm3 07/11/19 04:34 Blast Cells # 0.0 K/mm3 07/11/19 04:34 WBC Morphology Not Reportable 07/11/19 04:34 Hypersegmented Neuts Not Reportable 07/11/19 04:34 Hyposegmented Neuts Not Reportable 07/11/19 04:34 Hypogranular Neuts Not Reportable 07/11/19 04:34 Smudge Cells Not Reportable 07/11/19 04:34 Toxic Granulation Not Reportable 07/11/19 04:34 Toxic Vacuolation Not Reportable 07/11/19 04:34 Dohle Bodies Not Reportable 07/11/19 04:34 Pelger-Huet Anomaly Not Reportable 07/11/19 04:34 Jeri Rods Not Reportable 07/11/19 04:34 Platelet Estimate Not Reportable 07/11/19 04:34 Clumped Platelets Not Reportable 07/11/19 04:34 Plt Clumps, EDTA Not Reportable 07/11/19 04:34 Large Platelets Not Reportable 07/11/19 04:34 Giant Platelets Not Reportable 07/11/19 04:34 Platelet Satelliting Not Reportable 07/11/19 04:34 Plt Morphology Comment Not Reportable 07/11/19 04:34 RBC Morphology Normal 07/11/19 04:34 Dimorphic RBCs Not Reportable 07/11/19 04:34 Polychromasia Not Reportable 07/11/19 04:34 Hypochromasia Not Reportable 07/11/19 04:34 Poikilocytosis Not Reportable 07/11/19 04:34 Anisocytosis Not Reportable 07/11/19 04:34 Microcytosis Not Reportable 07/11/19 04:34 Macrocytosis Not Reportable 07/11/19 04:34 Spherocytes Not Reportable 07/11/19 04:34 Pappenheimer Bodies Not Reportable 07/11/19 04:34 Sickle Cells Not Reportable 07/11/19 04:34 Target Cells Not Reportable 07/11/19 04:34 Tear Drop Cells Not Reportable 07/11/19 04:34 Ovalocytes Not Reportable 07/11/19 04:34 Helmet Cells Not Reportable 07/11/19 04:34 Akins-[place] Bodies Not Reportable 07/11/19 04:34 Max Rings Not Reportable 07/11/19 04:34 [place] Cells Not Reportable 07/11/19 04:34 Bite Cells Not Reportable 07/11/19 04:34 Crenated Cell Not Reportable 07/11/19 04:34 Elliptocytes Not Reportable 07/11/19 04:34 Acanthocytes (Spur) Not Reportable 07/11/19 04:34 Rouleaux Not Reportable 07/11/19 04:34 Hemoglobin C Crystals Not Reportable 07/11/19 04:34 Schistocytes Not Reportable 07/11/19 04:34 Malaria parasites Not Reportable 07/11/19 04:34 [place]den Bodies Not Reportable 07/11/19 04:34 Hem Pathologist Commnt No 07/11/19 04:34 PT 18.2 Sec. (12.2-14.9) H 07/15/19 09:01 INR 1.55 (0.87-1.13) H 07/15/19 09:01 APTT 43.9 Sec. (24.2-36.6) H 07/10/19 11:45 POC ABG pH 7.363 (7.35-7.45) 07/10/19 12:03 POC ABG pCO2 34.3 (35-45) L 07/10/19 12:03 POC ABG pO2 100 (80-105) 07/10/19 12:03 POC ABG HCO3 19.5 (22-26 mml/L) 07/10/19 12:03 POC ABG Total CO2 21 (23-27mmol/L) 07/10/19 12:03 POC ABG O2 Sat 98 07/10/19 12:03 POC ABG Base Excess -6 ((-2) - (+3)mmol/L) 07/10/19 12:03 VBG pH 7.272 (7.320-7.420) L 07/10/19 11:45 FiO2 60 % 07/10/19 12:03 Sodium 139 mmol/L (137-145) 07/16/19 04:01 Potassium 3.6 mmol/L (3.6-5.0) 07/16/19 04:01 Chloride 98.6 mmol/L (98-107) 07/16/19 04:01 Carbon Dioxide 27 mmol/L (22-30) 07/16/19 04:01 Anion Gap 17 mmol/L 07/16/19 04:01 BUN 29 mg/dL (7-17) H 07/16/19 04:01 Creatinine 1.2 mg/dL (0.7-1.2) 07/16/19 04:01 Estimated GFR 44 ml/min 07/16/19 04:01 BUN/Creatinine Ratio 24 % 07/16/19 04:01 Glucose 108 mg/dL (65-100) H 07/16/19 04:01 POC Glucose 210 (70-105) H 07/16/19 12:27 Hemoglobin A1c 6.5 % (4-6) H 07/10/19 19:49 Lactic Acid 2.70 mmol/L (0.7-2.0) H* 07/10/19 13:34 Calcium 8.6 mg/dL (8.4-10.2) 07/16/19 04:01 Magnesium 2.40 mg/dL (1.7-2.3) H 07/13/19 05:13 Total Bilirubin 0.80 mg/dL (0.1-1.2) 07/11/19 04:34 Direct Bilirubin 0.4 mg/dL (0-0.2) H 07/10/19 11:45 Indirect Bilirubin 0.4 mg/dL 07/10/19 11:45 AST 29 units/L (5-40) 07/11/19 04:34 ALT 16 units/L (7-56) 07/11/19 04:34 Alkaline Phosphatase 65 units/L (35-129) 07/11/19 04:34 Total Creatine Kinase 40 units/L (30-135) 07/10/19 11:45 CK-MB (CK-2) 1.4 ng/mL (0.0-4.0) 07/10/19 11:45 CK-MB (CK-2) Rel Index 3.5 (0-4) 07/10/19 11:45 Troponin T < 0.010 ng/mL (0.00-0.029) 07/10/19 11:45 NT-Pro-B Natriuret Pep 1548 pg/mL (0-900) H 07/10/19 11:45 Total Protein 7.5 g/dL (6.3-8.2) 07/11/19 04:34 Albumin 3.5 g/dL (3.9-5) L 07/11/19 04:34 Albumin/Globulin Ratio 0.9 % 07/11/19 04:34 Urine Color [place] (Yellow) 07/10/19 12:12 Urine Turbidity Cloudy (Clear) 07/10/19 12:12 Urine pH 5.0 (5.0-7.0) 07/10/19 12:12 Ur Specific [place] 1.017 (1.003-1.030) 07/10/19 12:12 Urine Protein 100 mg/dl mg/dL (Negative) 07/10/19 12:12 Urine Glucose (UA) 50 mg/dL (Negative) 07/10/19 12:12 Urine Ketones Neg mg/dL (Negative) 07/10/19 12:12 Urine Blood Sm (Negative) 07/10/19 12:12 Urine Nitrite Neg (Negative) 07/10/19 12:12 Urine Bilirubin Neg (Negative) 07/10/19 12:12 Urine Urobilinogen < 2.0 mg/dL (<2.0) 07/10/19 12:12 Ur Leukocyte Esterase Lg (Negative) 07/10/19 12:12 Urine WBC (Auto) 67.0 /HPF (0.0-6.0) H 07/10/19 12:12 Urine RBC (Auto) 7.0 /HPF (0.0-6.0) 07/10/19 12:12 U Epithel Cells (Auto) < 1.0 /HPF (0-13.0) 07/10/19 12:12 Urine Bacteria (Auto) 1+ /HPF (Negative) 07/10/19 12:12 Urine WBC Clumps 3+ /HPF 07/10/19 12:12 Urine Mucus Few /HPF 07/10/19 12:12 Blood Type B POSITIVE 07/10/19 11:45 Antibody Screen Negative 07/10/19 11:45 Active Medications - Current Medications Current Medications: Generic Name Dose Route Start Last Admin Trade Name Freq PRN Reason Stop Dose Admin Acetaminophen 650 mg 07/10/19 19:06 Tylenol PO Q4H PRN Pain MILD(1-3)/Fever >100.5/SPICER Dextrose 50 ml 07/11/19 12:12 D50w (25gm) Syringe IV PRN PRN Hypoglycemia Digoxin 0.25 mg 07/11/19 13:00 07/15/19 13:15 Lanoxin PO 0.25 mg Q48H MEME Administration Diltiazem HCl 60 mg 07/13/19 12:00 07/16/19 12:26 Cardizem PO 60 mg Q6HR MEME Administration Enoxaparin Sodium 100 mg 07/16/19 10:00 07/16/19 09:44 Lovenox SUB-Q 100 mg Q12HR MEME Administration Famotidine 10 mg 07/12/19 10:00 07/16/19 09:44 Pepcid PO 10 mg BID MEME Administration Furosemide 40 mg 07/13/19 18:00 07/16/19 06:19 Lasix IV 40 mg 0600,1800 MEME Administration Guaifenesin 600 mg 07/13/19 10:00 07/16/19 09:44 Mucinex Er PO 600 mg BID MEME Administration Hydralazine HCl 20 mg 07/11/19 12:15 Apresoline IV Q6H PRN Hypertension Insulin Glargine 25 units 07/11/19 22:00 07/15/19 22:35 Lantus SUB-Q 25 units QHS MEME Administration Insulin Human Regular 0 units 07/11/19 16:30 07/16/19 12:26 Humulin R SUB-Q 3 units ACHS MEME Administration Protocol Ondansetron HCl 4 mg 07/10/19 19:06 Zofran IV Q8H PRN Nausea And Vomiting Oxycodone/Acetaminophen 1 tab 07/10/19 19:06 07/15/19 22:34 Percocet 5/325 PO 1 tab Q6H PRN Administration Pain, Moderate (4-6) Sodium Chloride 10 ml 07/10/19 22:00 07/16/19 09:45 Sodium Chloride Flush Syringe 10 Ml IV 10 ml BID MEME Administration Sodium Chloride 10 ml 07/10/19 19:06 Sodium Chloride Flush Syringe 10 Ml IV PRN PRN LINE FLUSH Spironolactone 25 mg 07/14/19 10:00 07/16/19 09:44 Aldactone PO 25 mg QDAY MEME Administration Nutrition/Malnutrition Assess - Dietary Evaluation Nutrition/Malnutrition Findings: Nutrition Notes Start: 07/16/19 15:04 Freq: Status: Active Protocol: Document 07/16/19 15:04 RM (Rec: 07/16/19 15:21 RM [id number]) Nutrition Notes Need for Assessment generated from: LOS Initial or Follow up Assessment Current Diagnosis Acute Kidney Injury,Diabetes, Heart Failure Other Pertinent Diagnosis UTI, Possible CKD Current Diet Consistent CHO Labs/Tests Reviewed Pertinent Medications Lasix Height 5 ft 4 in Weight 103.8 kg [place] Body Weight (kg) 54.54 BMI 39.2 Subjective/Other Information Screened for LOS. Pt stated that she is eating half of her meals because she is used to eating small meals at home. Also admitted to difficulty chewing the meat and salads d/t improperly fitting dentures. Noted preferences. Percent of energy/protein needs met: 72%/71% Burn Absent Trauma Absent Minimum of two criteria No #1 Nutrition Diagnosis Inadequate oral intake Etiology chewing difficulty, decreased appetite As Evidenced by Signs and Symptoms pt statement that she eats 50% of her meals Is patient on ventilator? No Is Patient Ambulatory and/or Out of Bed Yes REE-([facility]-ambulatory/OOB) [ 1960.400 [id number]] Kcal/Kg value to use for calculation 14 Approximate Energy Requirements Using 1453 kcal/Kg Calculation Used for Recommendations Kcal/kg Additional Notes Protein Needs: 63-79g (0.8-1g/ kg 79kg adjBW) Fluid Needs: 1 ml/kcal Nutrition Intervention Change Diet Order: Consistent CHO w/ground meat Goal #1 Meet at least 75% of calorie and protein needs via PO intakes Anticipated Discharge Needs: Unable to determine at this time Follow-Up By: 07/19/19 Additional Comments Follow for PO intakes
[2019-07-16] MEDS: INSULIN GLARGINE 100 UNITS/ML SUB-Q SCH (21:51)
[2019-07-16] MEDS: oxyCODONE /ACETAMINOPHEN 5-325MG TAB PO PRN (23:55)
[2019-07-17] MEDS: FUROSEMIDE 40 MG/4 ML INJ IV SCH ×2 (07:05→17:37)
[2019-07-17] MEDS: dilTIAZem 60 MG TAB PO SCH ×3 (07:06→17:36)
[2019-07-17] MEDS: INSULIN REGULAR, HUMAN 100 UNITS/1 ML SUB-Q SCH ×4 (08:58→22:01)
[2019-07-17] MEDS: SPIRONOLACTONE 25 MG TAB PO SCH (09:58)
[2019-07-17] MEDS: ENOXAPARIN 100 MG/1 ML INJ SUB-Q SCH ×2 (09:58→21:53)
[2019-07-17] MEDS: guaiFENesin ER 600 MG TAB PO SCH ×2 (09:59→21:53)
[2019-07-17] MEDS: FAMOTIDINE 10 MG TAB PO SCH ×2 (09:59→21:53)
[2019-07-17] MEDS: oxyCODONE /ACETAMINOPHEN 5-325MG TAB PO PRN ×2 (10:08→18:57)
--- NOTE | 2019-07-17 11:00 | Progress Note ---
Assessment and Plan 78 y/o female with acute hypoxic respiratory failure secondary to pulmonary edema, afib with RVR, hypertension and presumptive acute renal failure and most likely a UTI that is asymptomatic. 1. CV-Severe valvular disease, most likely the cause of changes seen on CXR. Will continue to follow but agree completely with cardiology that left and right heart cath are needed in the situation for accurate numbers. Scheduled for Friday 2. Continue supplemental O2 and wean for sats >88% and or patient comfort levels. Subjective Date of service: 07/17/19 Principal diagnosis: acute respiratory failure Interval history: No acute events documented. Was down to 1.5 liters NC last night based on documentation. Objective Vital Signs - 12hr 07/16/19 07/16/19 07/17/19 23:37 23:48 06:03 Temperature 97.8 F Pulse Rate 68 71 Respiratory 20 22 Rate Blood Pressure 147/58 123/56 O2 Sat by Pulse 97 97 Oximetry 07/17/19 07/17/19 07/17/19 06:05 08:30 09:58 Temperature 97.7 F 98.1 F Pulse Rate 48 L 79 Respiratory 20 Rate Blood Pressure 158/76 158/76 O2 Sat by Pulse 95 Oximetry Constitutional: no acute distress, alert Eyes: non-icteric ENT: oropharynx moist Neck: supple Effort: normal Ascultation: Bilateral: wheezes, rales, rhonchi Percussion: Bilateral: not dull Tactile fremitus: Bilateral: normal Cardiovascular: irregular rhythm (tachy, no mrg) Gastrointestinal: normoactive bowel sounds, soft, non-tender, non-distended Integumentary: normal Extremities: no cyanosis, no edema, pink and warm, edema (bilateral lower ext, per patient and family, this is improved) Neurologic: normal mental status, non-focal exam, pupils equal and round, CN II- XII normal Psychiatric: mood appropriate, affect normal CBC and BMP: 07/13/19 05:13 07/16/19 04:01 ABG, PT/INR, D-dimer: ABG POC ABG pH 7.363 (7.35-7.45) 07/10/19 12:03 POC ABG pCO2 34.3 (35-45) L 07/10/19 12:03 POC ABG pO2 100 (80-105) 07/10/19 12:03 POC ABG HCO3 19.5 (22-26 mml/L) 07/10/19 12:03 POC ABG Total CO2 21 (23-27mmol/L) 07/10/19 12:03 POC ABG O2 Sat 98 07/10/19 12:03 PT/INR, D-dimer PT 18.2 Sec. (12.2-14.9) H 07/15/19 09:01 INR 1.55 (0.87-1.13) H 07/15/19 09:01 Abnormal lab findings: Abnormal Labs 07/10/19 07/10/19 07/10/19 11:45 11:45 11:45 WBC 12.5 H RBC 3.56 L Hgb 9.5 L Hct 29.9 L MCH 27 L RDW 15.6 H Plt Count Lymph % (Auto) 5.2 L [place] % (Auto) Lymph # 0.7 L Seg Neutrophils % 89.1 H Seg Neuts % (Manual) Lymphocytes % (Manual) Seg Neutrophils # 11.2 H Lymphocytes # (Manual) PT 31.5 H INR 3.11 H APTT 43.9 H POC ABG pCO2 VBG pH Sodium 131 L Potassium Chloride 92.4 L Carbon Dioxide 19 L BUN 20 H Creatinine 1.4 H Glucose 370 H POC Glucose Hemoglobin A1c Lactic Acid Magnesium Direct Bilirubin NT-Pro-B Natriuret Pep Albumin Urine WBC (Auto) 07/10/19 07/10/19 07/10/19 11:45 11:45 11:45 WBC RBC Hgb Hct MCH RDW Plt Count Lymph % (Auto) [place] % (Auto) Lymph # Seg Neutrophils % Seg Neuts % (Manual) Lymphocytes % (Manual) Seg Neutrophils # Lymphocytes # (Manual) PT INR APTT POC ABG pCO2 VBG pH 7.272 L Sodium Potassium Chloride Carbon Dioxide BUN Creatinine Glucose POC Glucose Hemoglobin A1c Lactic Acid 3.70 H* Magnesium Direct Bilirubin 0.4 H NT-Pro-B Natriuret Pep 1548 H Albumin Urine WBC (Auto) 07/10/19 07/10/19 07/10/19 12:03 12:12 12:53 WBC RBC Hgb Hct MCH RDW Plt Count Lymph % (Auto) [place] % (Auto) Lymph # Seg Neutrophils % Seg Neuts % (Manual) Lymphocytes % (Manual) Seg Neutrophils # Lymphocytes # (Manual) PT INR APTT POC ABG pCO2 34.3 L VBG pH Sodium Potassium Chloride Carbon Dioxide BUN Creatinine Glucose POC Glucose Hemoglobin A1c Lactic Acid 3.00 H* Magnesium Direct Bilirubin NT-Pro-B Natriuret Pep Albumin Urine WBC (Auto) 67.0 H 07/10/19 07/10/19 07/10/19 13:34 13:52 15:50 WBC RBC Hgb Hct MCH RDW Plt Count Lymph % (Auto) [place] % (Auto) Lymph # Seg Neutrophils % Seg Neuts % (Manual) Lymphocytes % (Manual) Seg Neutrophils # Lymphocytes # (Manual) PT INR APTT POC ABG pCO2 VBG pH Sodium Potassium Chloride Carbon Dioxide BUN Creatinine Glucose POC Glucose 279 H 244 H Hemoglobin A1c Lactic Acid 2.70 H* Magnesium Direct Bilirubin NT-Pro-B Natriuret Pep Albumin Urine WBC (Auto) 07/10/19 07/10/19 07/11/19 19:49 21:43 04:34 WBC RBC 3.34 L Hgb 9.1 L Hct 28.2 L MCH 27 L RDW 15.7 H Plt Count 125 L Lymph % (Auto) [place] % (Auto) Lymph # Seg Neutrophils % Seg Neuts % (Manual) 93.0 H Lymphocytes % (Manual) 4.0 L Seg Neutrophils # Lymphocytes # (Manual) 0.3 L PT INR APTT POC ABG pCO2 VBG pH Sodium Potassium Chloride Carbon Dioxide BUN Creatinine Glucose POC Glucose 202 H Hemoglobin A1c 6.5 H Lactic Acid Magnesium Direct Bilirubin NT-Pro-B Natriuret Pep Albumin Urine WBC (Auto) 07/11/19 07/11/19 07/11/19 04:34 15:56 20:59 WBC RBC Hgb Hct MCH RDW Plt Count Lymph % (Auto) [place] % (Auto) Lymph # Seg Neutrophils % Seg Neuts % (Manual) Lymphocytes % (Manual) Seg Neutrophils # Lymphocytes # (Manual) PT INR APTT POC ABG pCO2 VBG pH Sodium 132 L Potassium 5.5 H D Chloride Carbon Dioxide BUN 25 H Creatinine 1.5 H Glucose 236 H POC Glucose 401 H 397 H Hemoglobin A1c Lactic Acid Magnesium Direct Bilirubin NT-Pro-B Natriuret Pep Albumin 3.5 L Urine WBC (Auto) 07/12/19 07/12/19 07/12/19 09:26 12:09 19:03 WBC RBC Hgb Hct MCH RDW Plt Count Lymph % (Auto) [place] % (Auto) Lymph # Seg Neutrophils % Seg Neuts % (Manual) Lymphocytes % (Manual) Seg Neutrophils # Lymphocytes # (Manual) PT INR APTT POC ABG pCO2 VBG pH Sodium Potassium Chloride Carbon Dioxide BUN Creatinine Glucose POC Glucose 236 H 261 H 278 H Hemoglobin A1c Lactic Acid Magnesium Direct Bilirubin NT-Pro-B Natriuret Pep Albumin Urine WBC (Auto) 07/12/19 07/13/19 07/13/19 21:53 05:13 05:13 WBC RBC 3.14 L Hgb 8.8 L Hct 26.0 L MCH RDW 15.8 H Plt Count Lymph % (Auto) 9.9 L [place] % (Auto) 7.6 H Lymph # 0.8 L Seg Neutrophils % 80.3 H Seg Neuts % (Manual) Lymphocytes % (Manual) Seg Neutrophils # Lymphocytes # (Manual) PT INR APTT POC ABG pCO2 VBG pH Sodium 134 L Potassium Chloride Carbon Dioxide BUN 45 H Creatinine 1.5 H Glucose 192 H POC Glucose 233 H Hemoglobin A1c Lactic Acid Magnesium 2.40 H Direct Bilirubin NT-Pro-B Natriuret Pep Albumin Urine WBC (Auto) 07/13/19 07/13/19 07/13/19 05:13 08:08 12:29 WBC RBC Hgb Hct MCH RDW Plt Count Lymph % (Auto) [place] % (Auto) Lymph # Seg Neutrophils % Seg Neuts % (Manual) Lymphocytes % (Manual) Seg Neutrophils # Lymphocytes # (Manual) PT 25.7 H INR 2.40 H APTT POC ABG pCO2 VBG pH Sodium Potassium Chloride Carbon Dioxide BUN Creatinine Glucose POC Glucose 206 H 300 H Hemoglobin A1c Lactic Acid Magnesium Direct Bilirubin NT-Pro-B Natriuret Pep Albumin Urine WBC (Auto) 07/13/19 07/13/19 07/14/19 16:39 20:43 07:54 WBC RBC Hgb Hct MCH RDW Plt Count Lymph % (Auto) [place] % (Auto) Lymph # Seg Neutrophils % Seg Neuts % (Manual) Lymphocytes % (Manual) Seg Neutrophils # Lymphocytes # (Manual) PT INR APTT POC ABG pCO2 VBG pH Sodium Potassium Chloride Carbon Dioxide BUN Creatinine Glucose POC Glucose 230 H 253 H 138 H Hemoglobin A1c Lactic Acid Magnesium Direct Bilirubin NT-Pro-B Natriuret Pep Albumin Urine WBC (Auto) 07/14/19 07/14/19 07/14/19 08:59 12:37 16:46 WBC RBC Hgb Hct MCH RDW Plt Count Lymph % (Auto) [place] % (Auto) Lymph # Seg Neutrophils % Seg Neuts % (Manual) Lymphocytes % (Manual) Seg Neutrophils # Lymphocytes # (Manual) PT INR APTT POC ABG pCO2 VBG pH Sodium 136 L Potassium Chloride Carbon Dioxide BUN 39 H Creatinine 1.3 H Glucose 143 H POC Glucose 298 H 197 H Hemoglobin A1c Lactic Acid Magnesium Direct Bilirubin NT-Pro-B Natriuret Pep Albumin Urine WBC (Auto) 07/14/19 07/15/19 07/15/19 20:19 08:28 09:01 WBC RBC Hgb Hct MCH RDW Plt Count Lymph % (Auto) [place] % (Auto) Lymph # Seg Neutrophils % Seg Neuts % (Manual) Lymphocytes % (Manual) Seg Neutrophils # Lymphocytes # (Manual) PT 18.2 H INR 1.55 H APTT POC ABG pCO2 VBG pH Sodium Potassium Chloride Carbon Dioxide BUN Creatinine Glucose POC Glucose 205 H 144 H Hemoglobin A1c Lactic Acid Magnesium Direct Bilirubin NT-Pro-B Natriuret Pep Albumin Urine WBC (Auto) 07/15/19 07/15/19 07/15/19 09:01 11:41 17:08 WBC RBC Hgb Hct MCH RDW Plt Count Lymph % (Auto) [place] % (Auto) Lymph # Seg Neutrophils % Seg Neuts % (Manual) Lymphocytes % (Manual) Seg Neutrophils # Lymphocytes # (Manual) PT INR APTT POC ABG pCO2 VBG pH Sodium Potassium Chloride 97.5 L Carbon Dioxide 21 L BUN 34 H Creatinine Glucose 172 H POC Glucose 218 H 191 H Hemoglobin A1c Lactic Acid Magnesium Direct Bilirubin NT-Pro-B Natriuret Pep Albumin Urine WBC (Auto) 07/15/19 07/16/19 07/16/19 21:20 04:01 09:47 WBC RBC Hgb Hct MCH RDW Plt Count Lymph % (Auto) [place] % (Auto) Lymph # Seg Neutrophils % Seg Neuts % (Manual) Lymphocytes % (Manual) Seg Neutrophils # Lymphocytes # (Manual) PT INR APTT POC ABG pCO2 VBG pH Sodium Potassium Chloride Carbon Dioxide BUN 29 H Creatinine Glucose 108 H POC Glucose 201 H 324 H Hemoglobin A1c Lactic Acid Magnesium Direct Bilirubin NT-Pro-B Natriuret Pep Albumin Urine WBC (Auto) 07/16/19 07/16/19 07/16/19 12:27 17:45 21:35 WBC RBC Hgb Hct MCH RDW Plt Count Lymph % (Auto) [place] % (Auto) Lymph # Seg Neutrophils % Seg Neuts % (Manual) Lymphocytes % (Manual) Seg Neutrophils # Lymphocytes # (Manual) PT INR APTT POC ABG pCO2 VBG pH Sodium Potassium Chloride Carbon Dioxide BUN Creatinine Glucose POC Glucose 210 H 140 H 348 H Hemoglobin A1c Lactic Acid Magnesium Direct Bilirubin NT-Pro-B Natriuret Pep Albumin Urine WBC (Auto) 07/17/19 08:37 WBC RBC Hgb Hct MCH RDW Plt Count Lymph % (Auto) [place] % (Auto) Lymph # Seg Neutrophils % Seg Neuts % (Manual) Lymphocytes % (Manual) Seg Neutrophils # Lymphocytes # (Manual) PT INR APTT POC ABG pCO2 VBG pH Sodium Potassium Chloride Carbon Dioxide BUN Creatinine Glucose POC Glucose 178 H Hemoglobin A1c Lactic Acid Magnesium Direct Bilirubin NT-Pro-B Natriuret Pep Albumin Urine WBC (Auto)
--- NOTE | 2019-07-17 11:51 | Progress Note ---
Subjective Date of service: 07/17/19 Principal diagnosis: acute respiratory failure Interval history: Acute combined congestive heart failure exacerbation Chronic atrial fibrillation rate controlled with digoxin and diltiazem warfarin is on hold; lovenix bridging Degenerative mitral valve disease with severe mitral regurgitation noted on 2 D echo Pulmonary hypertension with a dilated RV and RVA and significant tricuspid regurgitation Acute renal failure Anemia UTI Echocardiogram shows a severely thickened and calcified mitral valve leaflet and mitral valve apparatus, with restricted leaflet opening and Doppler mean gradient of greater than 5 mmHg. Findings are consistent with at least moderate mitral stenosis. The left ventricular systolic function is moderately impaired, ejection fraction is estimated at 35-40%. Recommendations: Continue current medical management Patient is now agreeable for a LHC and RHC on friday Patient with significant MR and TR, pulmonary hypertension, biatrial enlargement and dilated RV. Mitral valve replacement with TV repair should be considered. Objective Vital Signs Temp Pulse Resp BP BP Pulse Ox 07/17/19 09:58 79 158/76 07/17/19 08:30 98.1 F 48 L 20 158/76 95 07/17/19 06:05 97.7 F 07/17/19 06:03 71 22 123/56 97 07/16/19 23:48 97.8 F 07/16/19 23:37 68 20 147/58 97 07/16/19 22:00 90 97 07/16/19 21:28 98.3 F 07/16/19 21:26 71 20 140/53 94 07/16/19 17:42 92 H 166/50 07/16/19 17:39 97.7 F 89 18 166/48 95 07/16/19 12:32 72 18 149/65 98 07/16/19 12:26 72 149/65 - Physical Examination General: No Apparent Distress HEENT: Positive: PERRL Neck: Positive: neck supple, JVD/HJR Cardiac: Positive: S1/S2, Systolic Murmur Lungs: Positive: Rhonchi Neuro: Positive: Grossly Intact Abdomen: Positive: Soft Skin: Positive: Clear Extremities: Present: +1 Edema - Imaging and Cardiology EKG: image reviewed
[2019-07-17] MEDS: DIGOXIN 0.25 MG TAB PO SCH (13:09)
--- NOTE | 2019-07-17 15:00 | Progress Note ---
Assessment and Plan Assessment and plan: --Acute exacerbation of congestive heart failure 2-D echo showed EF 35-40% Continue diurese with IV diuretics. Patient is diuresing very well. Still has significant crackles on exam. Lower extremity edema is improved, Beta jaye wasn't tolerable, ACEI on hold for hyperkalemia --Acute respiratory failure with hypoxia Due to CHF exacerbation Patient is stable enough on 2 L of oxygen. Continue diuresis continue nebulizers. Pulmonology following. At present no need for steroids will treat empirically for underlying pneumonia with Levaquin --Moderate mitral valve stenosis Echocardiogram shows a severely thickened and calcified mitral valve leaflet and mitral valve apparatus, with restricted leaflet opening and Doppler mean gradient of greater than 5 mmHg. Findings are consistent with at least moderate mitral stenosis. Right and left heart catheterization on 07/19/2019 --Atrial fibrillation with RVR Recent currently rate suboptimal Status post Cardizem drip Changed to Cardizem and digoxin Warfarin was on hold for possible cardiac cath and elevated INR will place on lovenox for now as INR now low --Supratherapeutic INR, resolved held Coumadin and monitor INR daily --Terrence on Possible CKD, Cr ~15-1.3 likely diabetic nephropathy con to monitor her --UTI, continue s/p Levaquin for 5 days --Right middle lobe pulmonary infiltrate Patient with hazy infiltrate in right lower lobe suspected right lower lobe pneumonia. We'll continue to treat Levaquin daily. --T2DM (type 2 diabetes mellitus) currently Accu-Cheks bg within normal limits. cont insulin Lantus 25 units daily at bedtime. A1c 6.5 --DVT prophylaxis Continue prophylaxis Lovenox. History Interval history: Patient seen and examined medical records reviewed Patient feels slightly better than yesterday No new complaints Vital signs noted Hospitalist Physical - Constitutional Vitals: Temp Pulse Resp BP Pulse Ox 97.7 F 70 20 132/60 97 07/17/19 11:48 07/17/19 13:09 07/17/19 11:48 07/17/19 13:09 07/17/19 11:48 General appearance: Present: no acute distress, well-nourished, obese - EENT Eyes: Present: PERRL, EOM intact - Neck Neck: Present: supple, normal ROM - Respiratory Respiratory effort: normal Respiratory: bilateral: diminished, rales, negative: rhonchi, wheezing - Cardiovascular Rhythm: regular Heart Sounds: Present: S1 & S2 - Extremities Extremities: no ischemia, No edema - Abdominal General gastrointestinal: soft, non-tender, non-distended, normal bowel sounds - Integumentary Integumentary: Present: clear, warm - Psychiatric Psychiatric: appropriate mood/affect, cooperative - Neurologic Neurologic: moves all extremities Results - Labs CBC & Chem 7: 07/13/19 05:13 07/16/19 04:01 Labs: Laboratory Last Values WBC 7.8 K/mm3 (4.5-11.0) 07/13/19 05:13 RBC 3.14 M/mm3 (3.65-5.03) L 07/13/19 05:13 Hgb 8.8 gm/dl (10.1-14.3) L 07/13/19 05:13 Hct 26.0 % (30.3-42.9) L 07/13/19 05:13 MCV 83 fl (79-97) 07/13/19 05:13 MCH 28 pg (28-32) 07/13/19 05:13 MCHC 34 % (30-34) 07/13/19 05:13 RDW 15.8 % (13.2-15.2) H 07/13/19 05:13 Plt Count 177 K/mm3 (140-440) 07/13/19 05:13 Lymph % (Auto) 9.9 % (13.4-35.0) L 07/13/19 05:13 [place] % (Auto) 7.6 % (0.0-7.3) H 07/13/19 05:13 Eos % (Auto) 1.8 % (0.0-4.3) 07/13/19 05:13 Baso % (Auto) 0.4 % (0.0-1.8) 07/13/19 05:13 Lymph # 0.8 K/mm3 (1.2-5.4) L 07/13/19 05:13 [place] # 0.6 K/mm3 (0.0-0.8) 07/13/19 05:13 Eos # 0.1 K/mm3 (0.0-0.4) 07/13/19 05:13 Baso # 0.0 K/mm3 (0.0-0.1) 07/13/19 05:13 Add Manual Diff Complete 07/11/19 04:34 Total Counted 100 07/11/19 04:34 Seg Neutrophils % 80.3 % (40.0-70.0) H 07/13/19 05:13 Seg Neuts % (Manual) 93.0 % (40.0-70.0) H 07/11/19 04:34 Band Neutrophils % 0 % 07/11/19 04:34 Lymphocytes % (Manual) 4.0 % (13.4-35.0) L 07/11/19 04:34 Reactive Lymphs % (Man) 0 % 07/11/19 04:34 Monocytes % (Manual) 3.0 % (0.0-7.3) 07/11/19 04:34 Eosinophils % (Manual) 0 % (0.0-4.3) 07/11/19 04:34 Basophils % (Manual) 0 % (0.0-1.8) 07/11/19 04:34 Metamyelocytes % 0 % 07/11/19 04:34 Myelocytes % 0 % 07/11/19 04:34 Promyelocytes % 0 % 07/11/19 04:34 Blast Cells % 0 % 07/11/19 04:34 Nucleated RBC % Not Reportable 07/11/19 04:34 Seg Neutrophils # 6.3 K/mm3 (1.8-7.7) 07/13/19 05:13 Seg Neutrophils # Man 6.7 K/mm3 (1.8-7.7) 07/11/19 04:34 Band Neutrophils # 0.0 K/mm3 07/11/19 04:34 Lymphocytes # (Manual) 0.3 K/mm3 (1.2-5.4) L 07/11/19 04:34 Abs React Lymphs (Man) 0.0 K/mm3 07/11/19 04:34 Monocytes # (Manual) 0.2 K/mm3 (0.0-0.8) 07/11/19 04:34 Eosinophils # (Manual) 0.0 K/mm3 (0.0-0.4) 07/11/19 04:34 Basophils # (Manual) 0.0 K/mm3 (0.0-0.1) 07/11/19 04:34 Metamyelocytes # 0.0 K/mm3 07/11/19 04:34 Myelocytes # 0.0 K/mm3 07/11/19 04:34 Promyelocytes # 0.0 K/mm3 07/11/19 04:34 Blast Cells # 0.0 K/mm3 07/11/19 04:34 WBC Morphology Not Reportable 07/11/19 04:34 Hypersegmented Neuts Not Reportable 07/11/19 04:34 Hyposegmented Neuts Not Reportable 07/11/19 04:34 Hypogranular Neuts Not Reportable 07/11/19 04:34 Smudge Cells Not Reportable 07/11/19 04:34 Toxic Granulation Not Reportable 07/11/19 04:34 Toxic Vacuolation Not Reportable 07/11/19 04:34 Dohle Bodies Not Reportable 07/11/19 04:34 Pelger-Huet Anomaly Not Reportable 07/11/19 04:34 Jeri Rods Not Reportable 07/11/19 04:34 Platelet Estimate Not Reportable 07/11/19 04:34 Clumped Platelets Not Reportable 07/11/19 04:34 Plt Clumps, EDTA Not Reportable 07/11/19 04:34 Large Platelets Not Reportable 07/11/19 04:34 Giant Platelets Not Reportable 07/11/19 04:34 Platelet Satelliting Not Reportable 07/11/19 04:34 Plt Morphology Comment Not Reportable 07/11/19 04:34 RBC Morphology Normal 07/11/19 04:34 Dimorphic RBCs Not Reportable 07/11/19 04:34 Polychromasia Not Reportable 07/11/19 04:34 Hypochromasia Not Reportable 07/11/19 04:34 Poikilocytosis Not Reportable 07/11/19 04:34 Anisocytosis Not Reportable 07/11/19 04:34 Microcytosis Not Reportable 07/11/19 04:34 Macrocytosis Not Reportable 07/11/19 04:34 Spherocytes Not Reportable 07/11/19 04:34 Pappenheimer Bodies Not Reportable 07/11/19 04:34 Sickle Cells Not Reportable 07/11/19 04:34 Target Cells Not Reportable 07/11/19 04:34 Tear Drop Cells Not Reportable 07/11/19 04:34 Ovalocytes Not Reportable 07/11/19 04:34 Helmet Cells Not Reportable 07/11/19 04:34 Akins-[place] Bodies Not Reportable 07/11/19 04:34 [place] Rings Not Reportable 07/11/19 04:34 Sutter Cells Not Reportable 07/11/19 04:34 Bite Cells Not Reportable 07/11/19 04:34 Crenated Cell Not Reportable 07/11/19 04:34 Elliptocytes Not Reportable 07/11/19 04:34 Acanthocytes (Spur) Not Reportable 07/11/19 04:34 Rouleaux Not Reportable 07/11/19 04:34 Hemoglobin C Crystals Not Reportable 07/11/19 04:34 Schistocytes Not Reportable 07/11/19 04:34 Malaria parasites Not Reportable 07/11/19 04:34 Hayden Bodies Not Reportable 07/11/19 04:34 Hem Pathologist Commnt No 07/11/19 04:34 PT 18.2 Sec. (12.2-14.9) H 07/15/19 09:01 INR 1.55 (0.87-1.13) H 07/15/19 09:01 APTT 43.9 Sec. (24.2-36.6) H 07/10/19 11:45 POC ABG pH 7.363 (7.35-7.45) 07/10/19 12:03 POC ABG pCO2 34.3 (35-45) L 07/10/19 12:03 POC ABG pO2 100 (80-105) 07/10/19 12:03 POC ABG HCO3 19.5 (22-26 mml/L) 07/10/19 12:03 POC ABG Total CO2 21 (23-27mmol/L) 07/10/19 12:03 POC ABG O2 Sat 98 07/10/19 12:03 POC ABG Base Excess -6 ((-2) - (+3)mmol/L) 07/10/19 12:03 VBG pH 7.272 (7.320-7.420) L 07/10/19 11:45 FiO2 60 % 07/10/19 12:03 Sodium 139 mmol/L (137-145) 07/16/19 04:01 Potassium 3.6 mmol/L (3.6-5.0) 07/16/19 04:01 Chloride 98.6 mmol/L (98-107) 07/16/19 04:01 Carbon Dioxide 27 mmol/L (22-30) 07/16/19 04:01 Anion Gap 17 mmol/L 07/16/19 04:01 BUN 29 mg/dL (7-17) H 07/16/19 04:01 Creatinine 1.2 mg/dL (0.7-1.2) 07/16/19 04:01 Estimated GFR 44 ml/min 07/16/19 04:01 BUN/Creatinine Ratio 24 % 07/16/19 04:01 Glucose 108 mg/dL (65-100) H 07/16/19 04:01 POC Glucose 283 (70-105) H 07/17/19 11:57 Hemoglobin A1c 6.5 % (4-6) H 07/10/19 19:49 Lactic Acid 2.70 mmol/L (0.7-2.0) H* 07/10/19 13:34 Calcium 8.6 mg/dL (8.4-10.2) 07/16/19 04:01 Magnesium 2.40 mg/dL (1.7-2.3) H 07/13/19 05:13 Total Bilirubin 0.80 mg/dL (0.1-1.2) 07/11/19 04:34 Direct Bilirubin 0.4 mg/dL (0-0.2) H 07/10/19 11:45 Indirect Bilirubin 0.4 mg/dL 07/10/19 11:45 AST 29 units/L (5-40) 07/11/19 04:34 ALT 16 units/L (7-56) 07/11/19 04:34 Alkaline Phosphatase 65 units/L (35-129) 07/11/19 04:34 Total Creatine Kinase 40 units/L (30-135) 07/10/19 11:45 CK-MB (CK-2) 1.4 ng/mL (0.0-4.0) 07/10/19 11:45 CK-MB (CK-2) Rel Index 3.5 (0-4) 07/10/19 11:45 Troponin T < 0.010 ng/mL (0.00-0.029) 07/10/19 11:45 NT-Pro-B Natriuret Pep 1548 pg/mL (0-900) H 07/10/19 11:45 Total Protein 7.5 g/dL (6.3-8.2) 07/11/19 04:34 Albumin 3.5 g/dL (3.9-5) L 07/11/19 04:34 Albumin/Globulin Ratio 0.9 % 07/11/19 04:34 Urine Color Leida (Yellow) 07/10/19 12:12 Urine Turbidity Cloudy (Clear) 07/10/19 12:12 Urine pH 5.0 (5.0-7.0) 07/10/19 12:12 Ur Specific [place] 1.017 (1.003-1.030) 07/10/19 12:12 Urine Protein 100 mg/dl mg/dL (Negative) 07/10/19 12:12 Urine Glucose (UA) 50 mg/dL (Negative) 07/10/19 12:12 Urine Ketones Neg mg/dL (Negative) 07/10/19 12:12 Urine Blood Sm (Negative) 07/10/19 12:12 Urine Nitrite Neg (Negative) 07/10/19 12:12 Urine Bilirubin Neg (Negative) 07/10/19 12:12 Urine Urobilinogen < 2.0 mg/dL (<2.0) 07/10/19 12:12 Ur Leukocyte Esterase Lg (Negative) 07/10/19 12:12 Urine WBC (Auto) 67.0 /HPF (0.0-6.0) H 07/10/19 12:12 Urine RBC (Auto) 7.0 /HPF (0.0-6.0) 07/10/19 12:12 U Epithel Cells (Auto) < 1.0 /HPF (0-13.0) 07/10/19 12:12 Urine Bacteria (Auto) 1+ /HPF (Negative) 07/10/19 12:12 Urine WBC Clumps 3+ /HPF 07/10/19 12:12 Urine Mucus Few /HPF 07/10/19 12:12 Blood Type B POSITIVE 07/10/19 11:45 Antibody Screen Negative 07/10/19 11:45 Active Medications - Current Medications Current Medications: Generic Name Dose Route Start Last Admin Trade Name Freq PRN Reason Stop Dose Admin Acetaminophen 650 mg 07/10/19 19:06 Tylenol PO Q4H PRN Pain MILD(1-3)/Fever >100.5/SPICER Dextrose 50 ml 07/11/19 12:12 D50w (25gm) Syringe IV PRN PRN Hypoglycemia Digoxin 0.25 mg 07/11/19 13:00 07/17/19 13:09 Lanoxin PO 0.25 mg Q48H MEME Administration Diltiazem HCl 60 mg 07/13/19 12:00 07/17/19 13:08 Cardizem PO 60 mg Q6HR MEME Administration Enoxaparin Sodium 100 mg 07/16/19 10:00 07/17/19 09:58 Lovenox SUB-Q 100 mg Q12HR MEME Administration Famotidine 10 mg 07/12/19 10:00 07/17/19 09:59 Pepcid PO 10 mg BID MEME Administration Furosemide 40 mg 07/13/19 18:00 07/17/19 07:05 Lasix IV 40 mg 0600,1800 MEME Administration Guaifenesin 600 mg 07/13/19 10:00 07/17/19 09:59 Mucinex Er PO 600 mg BID MEME Administration Hydralazine HCl 20 mg 07/11/19 12:15 Apresoline IV Q6H PRN Hypertension Insulin Glargine 25 units 07/11/19 22:00 07/16/19 21:51 Lantus SUB-Q 25 units QHS MEME Administration Insulin Human Regular 0 units 07/11/19 16:30 07/17/19 13:08 Humulin R SUB-Q 4 units ACHS MEME Administration Protocol Ondansetron HCl 4 mg 07/10/19 19:06 Zofran IV Q8H PRN Nausea And Vomiting Oxycodone/Acetaminophen 1 tab 07/10/19 19:06 07/17/19 10:08 Percocet 5/325 PO 1 tab Q6H PRN Administration Pain, Moderate (4-6) Sodium Chloride 10 ml 07/10/19 22:00 07/17/19 09:59 Sodium Chloride Flush Syringe 10 Ml IV 10 ml BID MEME Administration Sodium Chloride 10 ml 07/10/19 19:06 Sodium Chloride Flush Syringe 10 Ml IV PRN PRN LINE FLUSH Spironolactone 25 mg 07/14/19 10:00 07/17/19 09:58 Aldactone PO 25 mg QDAY MEME Administration Nutrition/Malnutrition Assess - Dietary Evaluation Nutrition/Malnutrition Findings: Nutrition Notes Start: 07/16/19 15:04 Freq: Status: Active Protocol: Document 07/16/19 15:04 RM (Rec: 07/16/19 15:21 RM [email or web address]) Nutrition Notes Need for Assessment generated from: LOS Initial or Follow up Assessment Current Diagnosis Acute Kidney Injury,Diabetes, Heart Failure Other Pertinent Diagnosis UTI, Possible CKD Current Diet Consistent CHO Labs/Tests Reviewed Pertinent Medications Lasix Height 5 ft 4 in Weight 103.8 kg [place] Body Weight (kg) 54.54 BMI 39.2 Subjective/Other Information Screened for LOS. Pt stated that she is eating half of her meals because she is used to eating small meals at home. Also admitted to difficulty chewing the meat and salads d/t improperly fitting dentures. Noted preferences. Percent of energy/protein needs met: 72%/71% Burn Absent Trauma Absent Minimum of two criteria No #1 Nutrition Diagnosis Inadequate oral intake Etiology chewing difficulty, decreased appetite As Evidenced by Signs and Symptoms pt statement that she eats 50% of her meals Is patient on ventilator? No Is Patient Ambulatory and/or Out of Bed Yes REE-([place]. Jeor-ambulatory/OOB) [ 1960.400 [id number]] Kcal/Kg value to use for calculation 14 Approximate Energy Requirements Using 1453 kcal/Kg Calculation Used for Recommendations Kcal/kg Additional Notes Protein Needs: 63-79g (0.8-1g/ kg 79kg adjBW) Fluid Needs: 1 ml/kcal Nutrition Intervention Change Diet Order: Consistent CHO w/ground meat Goal #1 Meet at least 75% of calorie and protein needs via PO intakes Anticipated Discharge Needs: Unable to determine at this time Follow-Up By: 07/19/19 Additional Comments Follow for PO intakes
[2019-07-17] MEDS: INSULIN GLARGINE 100 UNITS/ML SUB-Q SCH (21:54)
[2019-07-18] MEDS: dilTIAZem 60 MG TAB PO SCH ×4 (00:15→17:56)
[2019-07-18] MEDS: oxyCODONE /ACETAMINOPHEN 5-325MG TAB PO PRN ×3 (00:15→12:11)
[2019-07-18] MEDS: FUROSEMIDE 40 MG/4 ML INJ IV SCH ×2 (05:47→17:56)
[2019-07-18] MEDS: INSULIN REGULAR, HUMAN 100 UNITS/1 ML SUB-Q SCH ×4 (09:29→22:10)
--- NOTE | 2019-07-18 09:29 | Progress Note ---
Assessment and Plan Assessment and plan: --Severe right knee osteoarthritis; Pain medications, x-ray right knee, elevated Coumadin Physical therapy outpatient. Given stable --Acute exacerbation of congestive heart failure 2-D echo showed EF 35-40% Continue diurese with IV diuretics. Patient is diuresing very well. Still has significant crackles on exam. Lower extremity edema is improved, Beta jaye wasn't tolerable, ACEI on hold for hyperkalemia --Acute respiratory failure with hypoxia Due to CHF exacerbation Patient is stable enough on 2 L of oxygen. Continue diuresis continue nebulizers. Pulmonology following. At present no need for steroids will treat empirically for underlying pneumonia with Levaquin --Moderate mitral valve stenosis Echocardiogram shows a severely thickened and calcified mitral valve leaflet and mitral valve apparatus, with restricted leaflet opening and Doppler mean gradient of greater than 5 mmHg. Findings are consistent with at least moderate mitral stenosis. Right and left heart catheterization on 07/19/2019 --Atrial fibrillation with RVR Recent currently rate suboptimal Status post Cardizem drip Changed to Cardizem and digoxin Warfarin was on hold for possible cardiac cath and elevated INR will place on lovenox for now as INR now low --Supratherapeutic INR, resolved held Coumadin and monitor INR daily --Terrence on Possible CKD, Cr ~15-1.3 likely diabetic nephropathy con to monitor her --UTI, continue s/p Levaquin for 5 days --Right middle lobe pulmonary infiltrate Patient with hazy infiltrate in right lower lobe suspected right lower lobe pneumonia. We'll continue to treat Levaquin daily. --T2DM (type 2 diabetes mellitus) currently Accu-Cheks bg within normal limits. cont insulin Lantus 25 units daily at bedtime. A1c 6.5 --DVT prophylaxis Continue prophylaxis Lovenox. Hospitalist Physical - Constitutional Vitals: Temp Pulse Resp BP Pulse Ox 98.0 F 72 20 144/54 96 07/18/19 08:17 07/18/19 08:17 07/18/19 08:17 07/18/19 08:17 07/18/19 08:17 General appearance: Present: no acute distress, well-nourished, obese Results - Labs CBC & Chem 7: 07/13/19 05:13 07/16/19 04:01 Labs: Laboratory Last Values WBC 7.8 K/mm3 (4.5-11.0) 07/13/19 05:13 RBC 3.14 M/mm3 (3.65-5.03) L 07/13/19 05:13 Hgb 8.8 gm/dl (10.1-14.3) L 07/13/19 05:13 Hct 26.0 % (30.3-42.9) L 07/13/19 05:13 MCV 83 fl (79-97) 07/13/19 05:13 MCH 28 pg (28-32) 07/13/19 05:13 MCHC 34 % (30-34) 07/13/19 05:13 RDW 15.8 % (13.2-15.2) H 07/13/19 05:13 Plt Count 177 K/mm3 (140-440) 07/13/19 05:13 Lymph % (Auto) 9.9 % (13.4-35.0) L 07/13/19 05:13 [place] % (Auto) 7.6 % (0.0-7.3) H 07/13/19 05:13 Eos % (Auto) 1.8 % (0.0-4.3) 07/13/19 05:13 Baso % (Auto) 0.4 % (0.0-1.8) 07/13/19 05:13 Lymph # 0.8 K/mm3 (1.2-5.4) L 07/13/19 05:13 [place] # 0.6 K/mm3 (0.0-0.8) 07/13/19 05:13 Eos # 0.1 K/mm3 (0.0-0.4) 07/13/19 05:13 Baso # 0.0 K/mm3 (0.0-0.1) 07/13/19 05:13 Add Manual Diff Complete 07/11/19 04:34 Total Counted 100 07/11/19 04:34 Seg Neutrophils % 80.3 % (40.0-70.0) H 07/13/19 05:13 Seg Neuts % (Manual) 93.0 % (40.0-70.0) H 07/11/19 04:34 Band Neutrophils % 0 % 07/11/19 04:34 Lymphocytes % (Manual) 4.0 % (13.4-35.0) L 07/11/19 04:34 Reactive Lymphs % (Man) 0 % 07/11/19 04:34 Monocytes % (Manual) 3.0 % (0.0-7.3) 07/11/19 04:34 Eosinophils % (Manual) 0 % (0.0-4.3) 07/11/19 04:34 Basophils % (Manual) 0 % (0.0-1.8) 07/11/19 04:34 Metamyelocytes % 0 % 07/11/19 04:34 Myelocytes % 0 % 07/11/19 04:34 Promyelocytes % 0 % 07/11/19 04:34 Blast Cells % 0 % 07/11/19 04:34 Nucleated RBC % Not Reportable 07/11/19 04:34 Seg Neutrophils # 6.3 K/mm3 (1.8-7.7) 07/13/19 05:13 Seg Neutrophils # Man 6.7 K/mm3 (1.8-7.7) 07/11/19 04:34 Band Neutrophils # 0.0 K/mm3 07/11/19 04:34 Lymphocytes # (Manual) 0.3 K/mm3 (1.2-5.4) L 07/11/19 04:34 Abs React Lymphs (Man) 0.0 K/mm3 07/11/19 04:34 Monocytes # (Manual) 0.2 K/mm3 (0.0-0.8) 07/11/19 04:34 Eosinophils # (Manual) 0.0 K/mm3 (0.0-0.4) 07/11/19 04:34 Basophils # (Manual) 0.0 K/mm3 (0.0-0.1) 07/11/19 04:34 Metamyelocytes # 0.0 K/mm3 07/11/19 04:34 Myelocytes # 0.0 K/mm3 07/11/19 04:34 Promyelocytes # 0.0 K/mm3 07/11/19 04:34 Blast Cells # 0.0 K/mm3 07/11/19 04:34 WBC Morphology Not Reportable 07/11/19 04:34 Hypersegmented Neuts Not Reportable 07/11/19 04:34 Hyposegmented Neuts Not Reportable 07/11/19 04:34 Hypogranular Neuts Not Reportable 07/11/19 04:34 Smudge Cells Not Reportable 07/11/19 04:34 Toxic Granulation Not Reportable 07/11/19 04:34 Toxic Vacuolation Not Reportable 07/11/19 04:34 Dohle Bodies Not Reportable 07/11/19 04:34 Pelger-Huet Anomaly Not Reportable 07/11/19 04:34 Jeri Rods Not Reportable 07/11/19 04:34 Platelet Estimate Not Reportable 07/11/19 04:34 Clumped Platelets Not Reportable 07/11/19 04:34 Plt Clumps, EDTA Not Reportable 07/11/19 04:34 Large Platelets Not Reportable 07/11/19 04:34 Giant Platelets Not Reportable 07/11/19 04:34 Platelet Satelliting Not Reportable 07/11/19 04:34 Plt Morphology Comment Not Reportable 07/11/19 04:34 RBC Morphology Normal 07/11/19 04:34 Dimorphic RBCs Not Reportable 07/11/19 04:34 Polychromasia Not Reportable 07/11/19 04:34 Hypochromasia Not Reportable 07/11/19 04:34 Poikilocytosis Not Reportable 07/11/19 04:34 Anisocytosis Not Reportable 07/11/19 04:34 Microcytosis Not Reportable 07/11/19 04:34 Macrocytosis Not Reportable 07/11/19 04:34 Spherocytes Not Reportable 07/11/19 04:34 Pappenheimer Bodies Not Reportable 07/11/19 04:34 Sickle Cells Not Reportable 07/11/19 04:34 Target Cells Not Reportable 07/11/19 04:34 Tear Drop Cells Not Reportable 07/11/19 04:34 Ovalocytes Not Reportable 07/11/19 04:34 Helmet Cells Not Reportable 07/11/19 04:34 Akins-Manderson Bodies Not Reportable 07/11/19 04:34 [place] Rings Not Reportable 07/11/19 04:34 [place] Cells Not Reportable 07/11/19 04:34 Bite Cells Not Reportable 07/11/19 04:34 Crenated Cell Not Reportable 07/11/19 04:34 Elliptocytes Not Reportable 07/11/19 04:34 Acanthocytes (Spur) Not Reportable 07/11/19 04:34 Rouleaux Not Reportable 07/11/19 04:34 Hemoglobin C Crystals Not Reportable 07/11/19 04:34 Schistocytes Not Reportable 07/11/19 04:34 Malaria parasites Not Reportable 07/11/19 04:34 [place] Bodies Not Reportable 07/11/19 04:34 Hem Pathologist Commnt No 07/11/19 04:34 PT 18.2 Sec. (12.2-14.9) H 07/15/19 09:01 INR 1.55 (0.87-1.13) H 07/15/19 09:01 APTT 43.9 Sec. (24.2-36.6) H 07/10/19 11:45 POC ABG pH 7.363 (7.35-7.45) 07/10/19 12:03 POC ABG pCO2 34.3 (35-45) L 07/10/19 12:03 POC ABG pO2 100 (80-105) 07/10/19 12:03 POC ABG HCO3 19.5 (22-26 mml/L) 07/10/19 12:03 POC ABG Total CO2 21 (23-27mmol/L) 07/10/19 12:03 POC ABG O2 Sat 98 07/10/19 12:03 POC ABG Base Excess -6 ((-2) - (+3)mmol/L) 07/10/19 12:03 VBG pH 7.272 (7.320-7.420) L 07/10/19 11:45 FiO2 60 % 07/10/19 12:03 Sodium 139 mmol/L (137-145) 07/16/19 04:01 Potassium 3.6 mmol/L (3.6-5.0) 07/16/19 04:01 Chloride 98.6 mmol/L (98-107) 07/16/19 04:01 Carbon Dioxide 27 mmol/L (22-30) 07/16/19 04:01 Anion Gap 17 mmol/L 07/16/19 04:01 BUN 29 mg/dL (7-17) H 07/16/19 04:01 Creatinine 1.2 mg/dL (0.7-1.2) 07/16/19 04:01 Estimated GFR 44 ml/min 07/16/19 04:01 BUN/Creatinine Ratio 24 % 07/16/19 04:01 Glucose 108 mg/dL (65-100) H 07/16/19 04:01 POC Glucose 208 (70-105) H 07/18/19 08:23 Hemoglobin A1c 6.5 % (4-6) H 07/10/19 19:49 Lactic Acid 2.70 mmol/L (0.7-2.0) H* 07/10/19 13:34 Calcium 8.6 mg/dL (8.4-10.2) 07/16/19 04:01 Magnesium 2.40 mg/dL (1.7-2.3) H 07/13/19 05:13 Total Bilirubin 0.80 mg/dL (0.1-1.2) 07/11/19 04:34 Direct Bilirubin 0.4 mg/dL (0-0.2) H 07/10/19 11:45 Indirect Bilirubin 0.4 mg/dL 07/10/19 11:45 AST 29 units/L (5-40) 07/11/19 04:34 ALT 16 units/L (7-56) 07/11/19 04:34 Alkaline Phosphatase 65 units/L (35-129) 07/11/19 04:34 Total Creatine Kinase 40 units/L (30-135) 07/10/19 11:45 CK-MB (CK-2) 1.4 ng/mL (0.0-4.0) 07/10/19 11:45 CK-MB (CK-2) Rel Index 3.5 (0-4) 07/10/19 11:45 Troponin T < 0.010 ng/mL (0.00-0.029) 07/10/19 11:45 NT-Pro-B Natriuret Pep 1548 pg/mL (0-900) H 07/10/19 11:45 Total Protein 7.5 g/dL (6.3-8.2) 07/11/19 04:34 Albumin 3.5 g/dL (3.9-5) L 07/11/19 04:34 Albumin/Globulin Ratio 0.9 % 07/11/19 04:34 Urine Color Leida (Yellow) 07/10/19 12:12 Urine Turbidity Cloudy (Clear) 07/10/19 12:12 Urine pH 5.0 (5.0-7.0) 07/10/19 12:12 Ur Specific [place] 1.017 (1.003-1.030) 07/10/19 12:12 Urine Protein 100 mg/dl mg/dL (Negative) 07/10/19 12:12 Urine Glucose (UA) 50 mg/dL (Negative) 07/10/19 12:12 Urine Ketones Neg mg/dL (Negative) 07/10/19 12:12 Urine Blood Sm (Negative) 07/10/19 12:12 Urine Nitrite Neg (Negative) 07/10/19 12:12 Urine Bilirubin Neg (Negative) 07/10/19 12:12 Urine Urobilinogen < 2.0 mg/dL (<2.0) 07/10/19 12:12 Ur Leukocyte Esterase Lg (Negative) 07/10/19 12:12 Urine WBC (Auto) 67.0 /HPF (0.0-6.0) H 07/10/19 12:12 Urine RBC (Auto) 7.0 /HPF (0.0-6.0) 07/10/19 12:12 U Epithel Cells (Auto) < 1.0 /HPF (0-13.0) 07/10/19 12:12 Urine Bacteria (Auto) 1+ /HPF (Negative) 07/10/19 12:12 Urine WBC Clumps 3+ /HPF 07/10/19 12:12 Urine Mucus Few /HPF 07/10/19 12:12 Blood Type B POSITIVE 07/10/19 11:45 Antibody Screen Negative 07/10/19 11:45 Active Medications - Current Medications Current Medications: Generic Name Dose Route Start Last Admin Trade Name Freq PRN Reason Stop Dose Admin Acetaminophen 650 mg 07/10/19 19:06 Tylenol PO Q4H PRN Pain MILD(1-3)/Fever >100.5/SPICER Dextrose 50 ml 07/11/19 12:12 D50w (25gm) Syringe IV PRN PRN Hypoglycemia Digoxin 0.25 mg 07/11/19 13:00 07/17/19 13:09 Lanoxin PO 0.25 mg Q48H MEME Administration Diltiazem HCl 60 mg 07/13/19 12:00 07/18/19 05:47 Cardizem PO 60 mg Q6HR MEME Administration Enoxaparin Sodium 100 mg 07/16/19 10:00 07/17/19 21:53 Lovenox SUB-Q 100 mg Q12HR MEME Administration Famotidine 10 mg 07/12/19 10:00 07/17/19 21:53 Pepcid PO 10 mg BID MEME Administration Furosemide 40 mg 07/13/19 18:00 07/18/19 05:47 Lasix IV 40 mg 0600,1800 MEME Administration Guaifenesin 600 mg 07/13/19 10:00 07/17/19 21:53 Mucinex Er PO 600 mg BID MEME Administration Hydralazine HCl 20 mg 07/11/19 12:15 Apresoline IV Q6H PRN Hypertension Insulin Glargine 32 units 07/17/19 22:00 07/17/19 21:54 Lantus SUB-Q 32 units QHS MEME Administration Insulin Human Regular 0 units 07/11/19 16:30 07/17/19 22:01 Humulin R SUB-Q 2 units ACHS MEME Administration Protocol Ondansetron HCl 4 mg 07/10/19 19:06 Zofran IV Q8H PRN Nausea And Vomiting Oxycodone/Acetaminophen 1 tab 07/10/19 19:06 07/18/19 05:47 Percocet 5/325 PO 1 tab Q6H PRN Administration Pain, Moderate (4-6) Sodium Chloride 10 ml 07/10/19 22:00 07/17/19 21:54 Sodium Chloride Flush Syringe 10 Ml IV 10 ml BID MEME Administration Sodium Chloride 10 ml 07/10/19 19:06 Sodium Chloride Flush Syringe 10 Ml IV PRN PRN LINE FLUSH Spironolactone 25 mg 07/14/19 10:00 07/17/19 09:58 Aldactone PO 25 mg QDAY MEME Administration Nutrition/Malnutrition Assess - Dietary Evaluation Nutrition/Malnutrition Findings: Nutrition Notes Start: 07/16/19 15:04 Freq: Status: Active Protocol: Document 07/16/19 15:04 RM (Rec: 07/16/19 15:21 RM [id number]) Nutrition Notes Need for Assessment generated from: LOS Initial or Follow up Assessment Current Diagnosis Acute Kidney Injury,Diabetes, Heart Failure Other Pertinent Diagnosis UTI, Possible CKD Current Diet Consistent CHO Labs/Tests Reviewed Pertinent Medications Lasix Height 5 ft 4 in Weight 103.8 kg [place] Body Weight (kg) 54.54 BMI 39.2 Subjective/Other Information Screened for LOS. Pt stated that she is eating half of her meals because she is used to eating small meals at home. Also admitted to difficulty chewing the meat and salads d/t improperly fitting dentures. Noted preferences. Percent of energy/protein needs met: 72%/71% Burn Absent Trauma Absent Minimum of two criteria No #1 Nutrition Diagnosis Inadequate oral intake Etiology chewing difficulty, decreased appetite As Evidenced by Signs and Symptoms pt statement that she eats 50% of her meals Is patient on ventilator? No Is Patient Ambulatory and/or Out of Bed Yes REE-([facility]-ambulatory/OOB) [ 1960.400 [id number]] Kcal/Kg value to use for calculation 14 Approximate Energy Requirements Using 1453 kcal/Kg Calculation Used for Recommendations Kcal/kg Additional Notes Protein Needs: 63-79g (0.8-1g/ kg 79kg adjBW) Fluid Needs: 1 ml/kcal Nutrition Intervention Change Diet Order: Consistent CHO w/ground meat Goal #1 Meet at least 75% of calorie and protein needs via PO intakes Anticipated Discharge Needs: Unable to determine at this time Follow-Up By: 07/19/19 Additional Comments Follow for PO intakes
[2019-07-18] MEDS: ENOXAPARIN 100 MG/1 ML INJ SUB-Q SCH ×2 (09:37→22:10)
[2019-07-18] MEDS: FAMOTIDINE 10 MG TAB PO SCH ×2 (09:37→22:11)
[2019-07-18] MEDS: guaiFENesin ER 600 MG TAB PO SCH ×2 (09:37→22:11)
[2019-07-18] MEDS: SPIRONOLACTONE 25 MG TAB PO SCH (09:38)
--- NOTE | 2019-07-18 11:29 | Progress Note ---
Assessment and Plan 78 y/o female with acute hypoxic respiratory failure secondary to pulmonary edema, afib with RVR, hypertension and presumptive acute renal failure and most likely a UTI that is asymptomatic. No new recs pulmonary [place]. Continue to wean oxygen as stated below. Will continue to follow. 1. CV-Severe valvular disease, most likely the cause of changes seen on CXR. Will continue to follow but agree completely with cardiology that left and right heart cath are needed in the situation for accurate numbers. Scheduled for Friday 2. Continue supplemental O2 and wean for sats >88% and or patient comfort levels. Subjective Date of service: 07/18/19 Principal diagnosis: acute respiratory failure Interval history: No acute events. Objective Vital Signs - 12hr 07/18/19 07/18/19 07/18/19 00:15 00:19 03:27 Temperature 97.8 F Pulse Rate 54 L 83 Respiratory 20 20 Rate Blood Pressure 129/70 144/56 O2 Sat by Pulse 98 98 Oximetry 07/18/19 07/18/19 07/18/19 03:28 05:47 08:17 Temperature 97.8 F 98.0 F Pulse Rate 83 72 Respiratory 20 Rate Blood Pressure 144/56 144/54 O2 Sat by Pulse 96 Oximetry 07/18/19 07/18/19 09:38 11:18 Temperature 98.5 F Pulse Rate 80 63 Respiratory 20 Rate Blood Pressure 144/54 138/48 O2 Sat by Pulse 97 Oximetry Constitutional: no acute distress, alert Eyes: non-icteric ENT: oropharynx moist Neck: supple Effort: normal Ascultation: Bilateral: wheezes, rales, rhonchi Percussion: Bilateral: not dull Tactile fremitus: Bilateral: normal Cardiovascular: irregular rhythm (tachy, no mrg) Gastrointestinal: normoactive bowel sounds, soft, non-tender, non-distended Integumentary: normal Extremities: no cyanosis, no edema, pink and warm, edema (bilateral lower ext, per patient and family, this is improved) Neurologic: normal mental status, non-focal exam, pupils equal and round, CN II- XII normal Psychiatric: mood appropriate, affect normal CBC and BMP: 07/13/19 05:13 07/16/19 04:01 ABG, PT/INR, D-dimer: ABG POC ABG pH 7.363 (7.35-7.45) 07/10/19 12:03 POC ABG pCO2 34.3 (35-45) L 07/10/19 12:03 POC ABG pO2 100 (80-105) 07/10/19 12:03 POC ABG HCO3 19.5 (22-26 mml/L) 07/10/19 12:03 POC ABG Total CO2 21 (23-27mmol/L) 07/10/19 12:03 POC ABG O2 Sat 98 07/10/19 12:03 PT/INR, D-dimer PT 18.2 Sec. (12.2-14.9) H 07/15/19 09:01 INR 1.55 (0.87-1.13) H 07/15/19 09:01 Abnormal lab findings: Abnormal Labs 07/10/19 07/10/19 07/10/19 11:45 11:45 11:45 WBC 12.5 H RBC 3.56 L Hgb 9.5 L Hct 29.9 L MCH 27 L RDW 15.6 H Plt Count Lymph % (Auto) 5.2 L [place] % (Auto) Lymph # 0.7 L Seg Neutrophils % 89.1 H Seg Neuts % (Manual) Lymphocytes % (Manual) Seg Neutrophils # 11.2 H Lymphocytes # (Manual) PT 31.5 H INR 3.11 H APTT 43.9 H POC ABG pCO2 VBG pH Sodium 131 L Potassium Chloride 92.4 L Carbon Dioxide 19 L BUN 20 H Creatinine 1.4 H Glucose 370 H POC Glucose Hemoglobin A1c Lactic Acid Magnesium Direct Bilirubin NT-Pro-B Natriuret Pep Albumin Urine WBC (Auto) 07/10/19 07/10/19 07/10/19 11:45 11:45 11:45 WBC RBC Hgb Hct MCH RDW Plt Count Lymph % (Auto) [place] % (Auto) Lymph # Seg Neutrophils % Seg Neuts % (Manual) Lymphocytes % (Manual) Seg Neutrophils # Lymphocytes # (Manual) PT INR APTT POC ABG pCO2 VBG pH 7.272 L Sodium Potassium Chloride Carbon Dioxide BUN Creatinine Glucose POC Glucose Hemoglobin A1c Lactic Acid 3.70 H* Magnesium Direct Bilirubin 0.4 H NT-Pro-B Natriuret Pep 1548 H Albumin Urine WBC (Auto) 07/10/19 07/10/19 07/10/19 12:03 12:12 12:53 WBC RBC Hgb Hct MCH RDW Plt Count Lymph % (Auto) [place] % (Auto) Lymph # Seg Neutrophils % Seg Neuts % (Manual) Lymphocytes % (Manual) Seg Neutrophils # Lymphocytes # (Manual) PT INR APTT POC ABG pCO2 34.3 L VBG pH Sodium Potassium Chloride Carbon Dioxide BUN Creatinine Glucose POC Glucose Hemoglobin A1c Lactic Acid 3.00 H* Magnesium Direct Bilirubin NT-Pro-B Natriuret Pep Albumin Urine WBC (Auto) 67.0 H 07/10/19 07/10/19 07/10/19 13:34 13:52 15:50 WBC RBC Hgb Hct MCH RDW Plt Count Lymph % (Auto) [place] % (Auto) Lymph # Seg Neutrophils % Seg Neuts % (Manual) Lymphocytes % (Manual) Seg Neutrophils # Lymphocytes # (Manual) PT INR APTT POC ABG pCO2 VBG pH Sodium Potassium Chloride Carbon Dioxide BUN Creatinine Glucose POC Glucose 279 H 244 H Hemoglobin A1c Lactic Acid 2.70 H* Magnesium Direct Bilirubin NT-Pro-B Natriuret Pep Albumin Urine WBC (Auto) 07/10/19 07/10/19 07/11/19 19:49 21:43 04:34 WBC RBC 3.34 L Hgb 9.1 L Hct 28.2 L MCH 27 L RDW 15.7 H Plt Count 125 L Lymph % (Auto) [place] % (Auto) Lymph # Seg Neutrophils % Seg Neuts % (Manual) 93.0 H Lymphocytes % (Manual) 4.0 L Seg Neutrophils # Lymphocytes # (Manual) 0.3 L PT INR APTT POC ABG pCO2 VBG pH Sodium Potassium Chloride Carbon Dioxide BUN Creatinine Glucose POC Glucose 202 H Hemoglobin A1c 6.5 H Lactic Acid Magnesium Direct Bilirubin NT-Pro-B Natriuret Pep Albumin Urine WBC (Auto) 07/11/19 07/11/19 07/11/19 04:34 15:56 20:59 WBC RBC Hgb Hct MCH RDW Plt Count Lymph % (Auto) [place] % (Auto) Lymph # Seg Neutrophils % Seg Neuts % (Manual) Lymphocytes % (Manual) Seg Neutrophils # Lymphocytes # (Manual) PT INR APTT POC ABG pCO2 VBG pH Sodium 132 L Potassium 5.5 H D Chloride Carbon Dioxide BUN 25 H Creatinine 1.5 H Glucose 236 H POC Glucose 401 H 397 H Hemoglobin A1c Lactic Acid Magnesium Direct Bilirubin NT-Pro-B Natriuret Pep Albumin 3.5 L Urine WBC (Auto) 07/12/19 07/12/19 07/12/19 09:26 12:09 19:03 WBC RBC Hgb Hct MCH RDW Plt Count Lymph % (Auto) [place] % (Auto) Lymph # Seg Neutrophils % Seg Neuts % (Manual) Lymphocytes % (Manual) Seg Neutrophils # Lymphocytes # (Manual) PT INR APTT POC ABG pCO2 VBG pH Sodium Potassium Chloride Carbon Dioxide BUN Creatinine Glucose POC Glucose 236 H 261 H 278 H Hemoglobin A1c Lactic Acid Magnesium Direct Bilirubin NT-Pro-B Natriuret Pep Albumin Urine WBC (Auto) 07/12/19 07/13/19 07/13/19 21:53 05:13 05:13 WBC RBC 3.14 L Hgb 8.8 L Hct 26.0 L MCH RDW 15.8 H Plt Count Lymph % (Auto) 9.9 L [place] % (Auto) 7.6 H Lymph # 0.8 L Seg Neutrophils % 80.3 H Seg Neuts % (Manual) Lymphocytes % (Manual) Seg Neutrophils # Lymphocytes # (Manual) PT INR APTT POC ABG pCO2 VBG pH Sodium 134 L Potassium Chloride Carbon Dioxide BUN 45 H Creatinine 1.5 H Glucose 192 H POC Glucose 233 H Hemoglobin A1c Lactic Acid Magnesium 2.40 H Direct Bilirubin NT-Pro-B Natriuret Pep Albumin Urine WBC (Auto) 07/13/19 07/13/19 07/13/19 05:13 08:08 12:29 WBC RBC Hgb Hct MCH RDW Plt Count Lymph % (Auto) [place] % (Auto) Lymph # Seg Neutrophils % Seg Neuts % (Manual) Lymphocytes % (Manual) Seg Neutrophils # Lymphocytes # (Manual) PT 25.7 H INR 2.40 H APTT POC ABG pCO2 VBG pH Sodium Potassium Chloride Carbon Dioxide BUN Creatinine Glucose POC Glucose 206 H 300 H Hemoglobin A1c Lactic Acid Magnesium Direct Bilirubin NT-Pro-B Natriuret Pep Albumin Urine WBC (Auto) 07/13/19 07/13/19 07/14/19 16:39 20:43 07:54 WBC RBC Hgb Hct MCH RDW Plt Count Lymph % (Auto) [place] % (Auto) Lymph # Seg Neutrophils % Seg Neuts % (Manual) Lymphocytes % (Manual) Seg Neutrophils # Lymphocytes # (Manual) PT INR APTT POC ABG pCO2 VBG pH Sodium Potassium Chloride Carbon Dioxide BUN Creatinine Glucose POC Glucose 230 H 253 H 138 H Hemoglobin A1c Lactic Acid Magnesium Direct Bilirubin NT-Pro-B Natriuret Pep Albumin Urine WBC (Auto) 07/14/19 07/14/19 07/14/19 08:59 12:37 16:46 WBC RBC Hgb Hct MCH RDW Plt Count Lymph % (Auto) [place] % (Auto) Lymph # Seg Neutrophils % Seg Neuts % (Manual) Lymphocytes % (Manual) Seg Neutrophils # Lymphocytes # (Manual) PT INR APTT POC ABG pCO2 VBG pH Sodium 136 L Potassium Chloride Carbon Dioxide BUN 39 H Creatinine 1.3 H Glucose 143 H POC Glucose 298 H 197 H Hemoglobin A1c Lactic Acid Magnesium Direct Bilirubin NT-Pro-B Natriuret Pep Albumin Urine WBC (Auto) 07/14/19 07/15/19 07/15/19 20:19 08:28 09:01 WBC RBC Hgb Hct MCH RDW Plt Count Lymph % (Auto) [place] % (Auto) Lymph # Seg Neutrophils % Seg Neuts % (Manual) Lymphocytes % (Manual) Seg Neutrophils # Lymphocytes # (Manual) PT 18.2 H INR 1.55 H APTT POC ABG pCO2 VBG pH Sodium Potassium Chloride Carbon Dioxide BUN Creatinine Glucose POC Glucose 205 H 144 H Hemoglobin A1c Lactic Acid Magnesium Direct Bilirubin NT-Pro-B Natriuret Pep Albumin Urine WBC (Auto) 07/15/19 07/15/19 07/15/19 09:01 11:41 17:08 WBC RBC Hgb Hct MCH RDW Plt Count Lymph % (Auto) [place] % (Auto) Lymph # Seg Neutrophils % Seg Neuts % (Manual) Lymphocytes % (Manual) Seg Neutrophils # Lymphocytes # (Manual) PT INR APTT POC ABG pCO2 VBG pH Sodium Potassium Chloride 97.5 L Carbon Dioxide 21 L BUN 34 H Creatinine Glucose 172 H POC Glucose 218 H 191 H Hemoglobin A1c Lactic Acid Magnesium Direct Bilirubin NT-Pro-B Natriuret Pep Albumin Urine WBC (Auto) 07/15/19 07/16/19 07/16/19 21:20 04:01 09:47 WBC RBC Hgb Hct MCH RDW Plt Count Lymph % (Auto) [place] % (Auto) Lymph # Seg Neutrophils % Seg Neuts % (Manual) Lymphocytes % (Manual) Seg Neutrophils # Lymphocytes # (Manual) PT INR APTT POC ABG pCO2 VBG pH Sodium Potassium Chloride Carbon Dioxide BUN 29 H Creatinine Glucose 108 H POC Glucose 201 H 324 H Hemoglobin A1c Lactic Acid Magnesium Direct Bilirubin NT-Pro-B Natriuret Pep Albumin Urine WBC (Auto) 07/16/19 07/16/19 07/16/19 12:27 17:45 21:35 WBC RBC Hgb Hct MCH RDW Plt Count Lymph % (Auto) [place] % (Auto) Lymph # Seg Neutrophils % Seg Neuts % (Manual) Lymphocytes % (Manual) Seg Neutrophils # Lymphocytes # (Manual) PT INR APTT POC ABG pCO2 VBG pH Sodium Potassium Chloride Carbon Dioxide BUN Creatinine Glucose POC Glucose 210 H 140 H 348 H Hemoglobin A1c Lactic Acid Magnesium Direct Bilirubin NT-Pro-B Natriuret Pep Albumin Urine WBC (Auto) 07/17/19 07/17/19 07/17/19 08:37 11:57 17:16 WBC RBC Hgb Hct MCH RDW Plt Count Lymph % (Auto) [place] % (Auto) Lymph # Seg Neutrophils % Seg Neuts % (Manual) Lymphocytes % (Manual) Seg Neutrophils # Lymphocytes # (Manual) PT INR APTT POC ABG pCO2 VBG pH Sodium Potassium Chloride Carbon Dioxide BUN Creatinine Glucose POC Glucose 178 H 283 H 185 H Hemoglobin A1c Lactic Acid Magnesium Direct Bilirubin NT-Pro-B Natriuret Pep Albumin Urine WBC (Auto) 07/17/19 07/18/19 22:08 08:23 WBC RBC Hgb Hct MCH RDW Plt Count Lymph % (Auto) [place] % (Auto) Lymph # Seg Neutrophils % Seg Neuts % (Manual) Lymphocytes % (Manual) Seg Neutrophils # Lymphocytes # (Manual) PT INR APTT POC ABG pCO2 VBG pH Sodium Potassium Chloride Carbon Dioxide BUN Creatinine Glucose POC Glucose 197 H 208 H Hemoglobin A1c Lactic Acid Magnesium Direct Bilirubin NT-Pro-B Natriuret Pep Albumin Urine WBC (Auto)
--- NOTE | 2019-07-18 12:43 | XRay Report ---
LEFT KNEE, 3 VIEWS INDICATION / CLINICAL INFORMATION: severe adi/osteoarthritis. COMPARISON: None available. FINDINGS: Significant degenerative changes present throughout the knee involving all 3 compartments. There is s ignificant joint space narrowing with associated hypertrophic change. There is chondrocalcinosis note d within the medial and lateral menisci consistent with CPPD. I do not see acute fracture, dislocatio n, or significant joint effusion. The bones are prominently demineralized. IMPRESSION: 1. Chondrocalcinosis consistent with CPPD 2. Prominent tricompartmental degenerative change. 3. No fracture or malalignment.. Signer Name: Stacie Kendall MD Signed: 07/18/2019 12:39 PM Workstation Name: [id number]
--- NOTE | 2019-07-18 15:45 | Progress Note ---
Subjective Date of service: 07/18/19 Principal diagnosis: acute respiratory failure Interval history: Acute combined congestive heart failure exacerbation Chronic atrial fibrillation rate controlled with digoxin and diltiazem warfarin is on hold; lovenix bridging Degenerative mitral valve disease with severe mitral regurgitation noted on 2 D echo Pulmonary hypertension with a dilated RV and RVA and significant tricuspid regurgitation Acute renal failure Anemia UTI Echocardiogram shows a severely thickened and calcified mitral valve leaflet and mitral valve apparatus, with restricted leaflet opening and Doppler mean gradient of greater than 5 mmHg. Findings are consistent with at least moderate mitral stenosis. The left ventricular systolic function is moderately impaired, ejection fraction is estimated at 35-40%. Recommendations: Continue current medical management Patient is now agreeable for a LHC and RHC on friday Patient with significant MR and TR, pulmonary hypertension, biatrial enlargement and dilated RV. Mitral valve replacement with TV repair should be considered. Objective Vital Signs Temp Pulse Resp BP Pulse Ox 07/18/19 12:10 86 138/50 07/18/19 11:18 98.5 F 63 20 138/48 97 07/18/19 10:00 70 98 07/18/19 09:38 80 144/54 07/18/19 08:17 98.0 F 72 20 144/54 96 07/18/19 05:47 83 144/56 07/18/19 03:28 97.8 F 07/18/19 03:27 83 20 144/56 98 07/18/19 00:19 97.8 F 07/18/19 00:15 54 L 20 129/70 98 07/17/19 20:00 71 07/17/19 19:44 98.2 F 07/17/19 19:40 71 22 142/55 99 07/17/19 17:36 98 H 158/45 07/17/19 17:10 98.5 F 53 L 22 158/45 95 07/17/19 17:08 98.5 F 49 L 20 96 - Physical Examination General: No Apparent Distress HEENT: Positive: PERRL Neck: Positive: neck supple, JVD/HJR Cardiac: Positive: Reg Rate and Rhythm, S1/S2 Lungs: Positive: Rhonchi Neuro: Positive: Grossly Intact Abdomen: Positive: Soft Skin: Positive: Clear Extremities: Present: +1 Edema - Imaging and Cardiology EKG: image reviewed
[2019-07-18] MEDS ORDERED: SODIUM CHLORIDE 0.9% 500 ML 500 ML IV SCH (16:00)
[2019-07-18] MEDS: INSULIN GLARGINE 100 UNITS/ML SUB-Q SCH (22:11)
[2019-07-19] MEDS: dilTIAZem 60 MG TAB PO SCH ×4 (00:44→18:26)
[2019-07-19 04:46] LABS: INR 1.33 (0.87-1.13)
[2019-07-19 04:47] LABS: Partial Thromboplastin Time 46.7 Sec. (24.2-36.6)
[2019-07-19] MEDS: FUROSEMIDE 40 MG/4 ML INJ IV SCH ×2 (06:26→18:31)
[2019-07-19 07:06] LABS: Hematocrit 24.6 % (30.3-42.9); Hemoglobin 8.3 gm/dl (10.1-14.3); Mean Corpuscular HGB Conc 34 % (30-34); Mean Corpuscular Volume 82 fl (79-97); Platelet Count 174 K/mm3 (140-440); Red Blood Count 2.98 M/mm3 (3.65-5.03); Red Cell Distribution Width 15.7 % (13.2-15.2)
[2019-07-19] MEDS: INSULIN REGULAR, HUMAN 100 UNITS/1 ML SUB-Q SCH ×4 (07:59→22:42)
[2019-07-19] MEDS ORDERED: HEPARIN/NS 5000 UNIT/500ML 1,000 ML IR ONE (08:57)
[2019-07-19] MEDS ORDERED: HEPARIN 10,000 UNITS/10 ML VIAL ONE (08:57)
[2019-07-19] MEDS ORDERED: MIDAZOLAM 2 MG/2 ML INJ ONE (08:58)
[2019-07-19] MEDS ORDERED: VERAPAMIL 5 MG/2 ML INJ ONE (08:58)
[2019-07-19] MEDS ORDERED: fentaNYL 100 MCG/2 ML INJ ONE (08:58)
[2019-07-19] MEDS ORDERED: LIDOCAINE (2%) 20 MG/1 ML VIAL 20 ML MDV INFILTRATI ONE (08:59)
[2019-07-19] MEDS ORDERED: NITROGLYCERIN SYRINGE 3 ML ONE (08:59)
[2019-07-19] MEDS ORDERED: ALBUTEROL 2.5 MG/3 ML NEBU IH NR (09:00)
[2019-07-19] MEDS ORDERED: SODIUM CHLORIDE 0.9% 500 ML 500 ML ONE (10:12)
[2019-07-19] MEDS ORDERED: FUROSEMIDE 20 MG/2 ML INJ ONE ×2 (11:02→11:04)
--- NOTE | 2019-07-19 11:39 | Event Note ---
Date: 07/19/19 She had underwent a right left heart catheterization, no complications. Findings: Angiographically normal coronary arteries. At least mild to moderate mitral stenosis. Severe pulmonary hypertension with pulmonary artery systolic pressure of 85 mmHg. We will recommend aggressive medical therapy for heart failure and pulmonary hypertension. Resume oral anticoagulation with warfarin at 5 mg daily. Due to comorbidities including pulmonary disease and pulmonary hypertension, she may not ultimately be a candidate for surgical mitral valve.
--- NOTE | 2019-07-19 11:52 | Progress Note ---
Subjective Date of service: 07/19/19 Principal diagnosis: acute respiratory failure Interval history: Patient off floor for heart cath but read prelim report by cards. Patient does not carry a diagnosis of COPD and has not had any breathing issues prior to this admission. We will be glad to evaluate in the office as an outpatient for possibility of obstruction. However, she resolved in house with only diuretic therapy, no steroids used. She down to nasal cannula at 1.5 and can likely be weaned to off. If she needs surgery on her valve, based on what we have seen in house, it does not appear that her lung function would prevent this. Objective Vital Signs - 12hr 07/18/19 07/19/19 07/19/19 23:57 00:44 08:05 Temperature 98.7 F Pulse Rate 50 L 50 L Pulse Rate [ Bilateral Throughout] Respiratory 20 Rate Respiratory Rate [Bilateral Throughout] Blood Pressure 148/43 148/43 O2 Sat by Pulse 97 95 Oximetry 07/19/19 07/19/19 08:54 09:00 Temperature Pulse Rate Pulse Rate [ 108 H Bilateral Throughout] Respiratory Rate Respiratory 15 Rate [Bilateral Throughout] Blood Pressure O2 Sat by Pulse 100 Oximetry Constitutional: no acute distress, alert Eyes: non-icteric ENT: oropharynx moist Neck: supple Effort: normal Ascultation: Bilateral: wheezes, rales, rhonchi Percussion: Bilateral: not dull Tactile fremitus: Bilateral: normal Cardiovascular: irregular rhythm (tachy, no mrg) Gastrointestinal: normoactive bowel sounds, soft, non-tender, non-distended Integumentary: normal Extremities: no cyanosis, no edema, pink and warm, edema (bilateral lower ext, per patient and family, this is improved) Neurologic: normal mental status, non-focal exam, pupils equal and round, CN II- XII normal Psychiatric: mood appropriate, affect normal CBC and BMP: 07/19/19 06:52 07/19/19 04:18 ABG, PT/INR, D-dimer: ABG POC ABG pH 7.363 (7.35-7.45) 07/10/19 12:03 POC ABG pCO2 34.3 (35-45) L 07/10/19 12:03 POC ABG pO2 100 (80-105) 07/10/19 12:03 POC ABG HCO3 19.5 (22-26 mml/L) 07/10/19 12:03 POC ABG Total CO2 21 (23-27mmol/L) 07/10/19 12:03 POC ABG O2 Sat 98 07/10/19 12:03 PT/INR, D-dimer PT 16.1 Sec. (12.2-14.9) H 07/19/19 04:18 INR 1.33 (0.87-1.13) H 07/19/19 04:18 Abnormal lab findings: Abnormal Labs 07/10/19 07/10/19 07/10/19 11:45 11:45 11:45 WBC 12.5 H RBC 3.56 L Hgb 9.5 L Hct 29.9 L MCH 27 L RDW 15.6 H Plt Count Lymph % (Auto) 5.2 L [place] % (Auto) Lymph # 0.7 L Seg Neutrophils % 89.1 H Seg Neuts % (Manual) Lymphocytes % (Manual) Seg Neutrophils # 11.2 H Lymphocytes # (Manual) PT 31.5 H INR 3.11 H APTT 43.9 H POC ABG pCO2 VBG pH Sodium 131 L Potassium Chloride 92.4 L Carbon Dioxide 19 L BUN 20 H Creatinine 1.4 H Glucose 370 H POC Glucose Hemoglobin A1c Lactic Acid Magnesium Direct Bilirubin NT-Pro-B Natriuret Pep Albumin Urine WBC (Auto) 07/10/19 07/10/19 07/10/19 11:45 11:45 11:45 WBC RBC Hgb Hct MCH RDW Plt Count Lymph % (Auto) [place] % (Auto) Lymph # Seg Neutrophils % Seg Neuts % (Manual) Lymphocytes % (Manual) Seg Neutrophils # Lymphocytes # (Manual) PT INR APTT POC ABG pCO2 VBG pH 7.272 L Sodium Potassium Chloride Carbon Dioxide BUN Creatinine Glucose POC Glucose Hemoglobin A1c Lactic Acid 3.70 H* Magnesium Direct Bilirubin 0.4 H NT-Pro-B Natriuret Pep 1548 H Albumin Urine WBC (Auto) 07/10/19 07/10/19 07/10/19 12:03 12:12 12:53 WBC RBC Hgb Hct MCH RDW Plt Count Lymph % (Auto) [place] % (Auto) Lymph # Seg Neutrophils % Seg Neuts % (Manual) Lymphocytes % (Manual) Seg Neutrophils # Lymphocytes # (Manual) PT INR APTT POC ABG pCO2 34.3 L VBG pH Sodium Potassium Chloride Carbon Dioxide BUN Creatinine Glucose POC Glucose Hemoglobin A1c Lactic Acid 3.00 H* Magnesium Direct Bilirubin NT-Pro-B Natriuret Pep Albumin Urine WBC (Auto) 67.0 H 07/10/19 07/10/19 07/10/19 13:34 13:52 15:50 WBC RBC Hgb Hct MCH RDW Plt Count Lymph % (Auto) [place] % (Auto) Lymph # Seg Neutrophils % Seg Neuts % (Manual) Lymphocytes % (Manual) Seg Neutrophils # Lymphocytes # (Manual) PT INR APTT POC ABG pCO2 VBG pH Sodium Potassium Chloride Carbon Dioxide BUN Creatinine Glucose POC Glucose 279 H 244 H Hemoglobin A1c Lactic Acid 2.70 H* Magnesium Direct Bilirubin NT-Pro-B Natriuret Pep Albumin Urine WBC (Auto) 07/10/19 07/10/19 07/11/19 19:49 21:43 04:34 WBC RBC 3.34 L Hgb 9.1 L Hct 28.2 L MCH 27 L RDW 15.7 H Plt Count 125 L Lymph % (Auto) [place] % (Auto) Lymph # Seg Neutrophils % Seg Neuts % (Manual) 93.0 H Lymphocytes % (Manual) 4.0 L Seg Neutrophils # Lymphocytes # (Manual) 0.3 L PT INR APTT POC ABG pCO2 VBG pH Sodium Potassium Chloride Carbon Dioxide BUN Creatinine Glucose POC Glucose 202 H Hemoglobin A1c 6.5 H Lactic Acid Magnesium Direct Bilirubin NT-Pro-B Natriuret Pep Albumin Urine WBC (Auto) 07/11/19 07/11/19 07/11/19 04:34 15:56 20:59 WBC RBC Hgb Hct MCH RDW Plt Count Lymph % (Auto) [place] % (Auto) Lymph # Seg Neutrophils % Seg Neuts % (Manual) Lymphocytes % (Manual) Seg Neutrophils # Lymphocytes # (Manual) PT INR APTT POC ABG pCO2 VBG pH Sodium 132 L Potassium 5.5 H D Chloride Carbon Dioxide BUN 25 H Creatinine 1.5 H Glucose 236 H POC Glucose 401 H 397 H Hemoglobin A1c Lactic Acid Magnesium Direct Bilirubin NT-Pro-B Natriuret Pep Albumin 3.5 L Urine WBC (Auto) 07/12/19 07/12/19 07/12/19 09:26 12:09 19:03 WBC RBC Hgb Hct MCH RDW Plt Count Lymph % (Auto) [place] % (Auto) Lymph # Seg Neutrophils % Seg Neuts % (Manual) Lymphocytes % (Manual) Seg Neutrophils # Lymphocytes # (Manual) PT INR APTT POC ABG pCO2 VBG pH Sodium Potassium Chloride Carbon Dioxide BUN Creatinine Glucose POC Glucose 236 H 261 H 278 H Hemoglobin A1c Lactic Acid Magnesium Direct Bilirubin NT-Pro-B Natriuret Pep Albumin Urine WBC (Auto) 07/12/19 07/13/19 07/13/19 21:53 05:13 05:13 WBC RBC 3.14 L Hgb 8.8 L Hct 26.0 L MCH RDW 15.8 H Plt Count Lymph % (Auto) 9.9 L [place] % (Auto) 7.6 H Lymph # 0.8 L Seg Neutrophils % 80.3 H Seg Neuts % (Manual) Lymphocytes % (Manual) Seg Neutrophils # Lymphocytes # (Manual) PT INR APTT POC ABG pCO2 VBG pH Sodium 134 L Potassium Chloride Carbon Dioxide BUN 45 H Creatinine 1.5 H Glucose 192 H POC Glucose 233 H Hemoglobin A1c Lactic Acid Magnesium 2.40 H Direct Bilirubin NT-Pro-B Natriuret Pep Albumin Urine WBC (Auto) 07/13/19 07/13/19 07/13/19 05:13 08:08 12:29 WBC RBC Hgb Hct MCH RDW Plt Count Lymph % (Auto) [place] % (Auto) Lymph # Seg Neutrophils % Seg Neuts % (Manual) Lymphocytes % (Manual) Seg Neutrophils # Lymphocytes # (Manual) PT 25.7 H INR 2.40 H APTT POC ABG pCO2 VBG pH Sodium Potassium Chloride Carbon Dioxide BUN Creatinine Glucose POC Glucose 206 H 300 H Hemoglobin A1c Lactic Acid Magnesium Direct Bilirubin NT-Pro-B Natriuret Pep Albumin Urine WBC (Auto) 07/13/19 07/13/19 07/14/19 16:39 20:43 07:54 WBC RBC Hgb Hct MCH RDW Plt Count Lymph % (Auto) [place] % (Auto) Lymph # Seg Neutrophils % Seg Neuts % (Manual) Lymphocytes % (Manual) Seg Neutrophils # Lymphocytes # (Manual) PT INR APTT POC ABG pCO2 VBG pH Sodium Potassium Chloride Carbon Dioxide BUN Creatinine Glucose POC Glucose 230 H 253 H 138 H Hemoglobin A1c Lactic Acid Magnesium Direct Bilirubin NT-Pro-B Natriuret Pep Albumin Urine WBC (Auto) 07/14/19 07/14/19 07/14/19 08:59 12:37 16:46 WBC RBC Hgb Hct MCH RDW Plt Count Lymph % (Auto) [place] % (Auto) Lymph # Seg Neutrophils % Seg Neuts % (Manual) Lymphocytes % (Manual) Seg Neutrophils # Lymphocytes # (Manual) PT INR APTT POC ABG pCO2 VBG pH Sodium 136 L Potassium Chloride Carbon Dioxide BUN 39 H Creatinine 1.3 H Glucose 143 H POC Glucose 298 H 197 H Hemoglobin A1c Lactic Acid Magnesium Direct Bilirubin NT-Pro-B Natriuret Pep Albumin Urine WBC (Auto) 07/14/19 07/15/19 07/15/19 20:19 08:28 09:01 WBC RBC Hgb Hct MCH RDW Plt Count Lymph % (Auto) [place] % (Auto) Lymph # Seg Neutrophils % Seg Neuts % (Manual) Lymphocytes % (Manual) Seg Neutrophils # Lymphocytes # (Manual) PT 18.2 H INR 1.55 H APTT POC ABG pCO2 VBG pH Sodium Potassium Chloride Carbon Dioxide BUN Creatinine Glucose POC Glucose 205 H 144 H Hemoglobin A1c Lactic Acid Magnesium Direct Bilirubin NT-Pro-B Natriuret Pep Albumin Urine WBC (Auto) 07/15/19 07/15/19 07/15/19 09:01 11:41 17:08 WBC RBC Hgb Hct MCH RDW Plt Count Lymph % (Auto) [place] % (Auto) Lymph # Seg Neutrophils % Seg Neuts % (Manual) Lymphocytes % (Manual) Seg Neutrophils # Lymphocytes # (Manual) PT INR APTT POC ABG pCO2 VBG pH Sodium Potassium Chloride 97.5 L Carbon Dioxide 21 L BUN 34 H Creatinine Glucose 172 H POC Glucose 218 H 191 H Hemoglobin A1c Lactic Acid Magnesium Direct Bilirubin NT-Pro-B Natriuret Pep Albumin Urine WBC (Auto) 07/15/19 07/16/19 07/16/19 21:20 04:01 09:47 WBC RBC Hgb Hct MCH RDW Plt Count Lymph % (Auto) [place] % (Auto) Lymph # Seg Neutrophils % Seg Neuts % (Manual) Lymphocytes % (Manual) Seg Neutrophils # Lymphocytes # (Manual) PT INR APTT POC ABG pCO2 VBG pH Sodium Potassium Chloride Carbon Dioxide BUN 29 H Creatinine Glucose 108 H POC Glucose 201 H 324 H Hemoglobin A1c Lactic Acid Magnesium Direct Bilirubin NT-Pro-B Natriuret Pep Albumin Urine WBC (Auto) 07/16/19 07/16/19 07/16/19 12:27 17:45 21:35 WBC RBC Hgb Hct MCH RDW Plt Count Lymph % (Auto) [place] % (Auto) Lymph # Seg Neutrophils % Seg Neuts % (Manual) Lymphocytes % (Manual) Seg Neutrophils # Lymphocytes # (Manual) PT INR APTT POC ABG pCO2 VBG pH Sodium Potassium Chloride Carbon Dioxide BUN Creatinine Glucose POC Glucose 210 H 140 H 348 H Hemoglobin A1c Lactic Acid Magnesium Direct Bilirubin NT-Pro-B Natriuret Pep Albumin Urine WBC (Auto) 07/17/19 07/17/19 07/17/19 08:37 11:57 17:16 WBC RBC Hgb Hct MCH RDW Plt Count Lymph % (Auto) [place] % (Auto) Lymph # Seg Neutrophils % Seg Neuts % (Manual) Lymphocytes % (Manual) Seg Neutrophils # Lymphocytes # (Manual) PT INR APTT POC ABG pCO2 VBG pH Sodium Potassium Chloride Carbon Dioxide BUN Creatinine Glucose POC Glucose 178 H 283 H 185 H Hemoglobin A1c Lactic Acid Magnesium Direct Bilirubin NT-Pro-B Natriuret Pep Albumin Urine WBC (Auto) 07/17/19 07/18/19 07/18/19 22:08 08:23 11:23 WBC RBC Hgb Hct MCH RDW Plt Count Lymph % (Auto) [place] % (Auto) Lymph # Seg Neutrophils % Seg Neuts % (Manual) Lymphocytes % (Manual) Seg Neutrophils # Lymphocytes # (Manual) PT INR APTT POC ABG pCO2 VBG pH Sodium Potassium Chloride Carbon Dioxide BUN Creatinine Glucose POC Glucose 197 H 208 H 367 H Hemoglobin A1c Lactic Acid Magnesium Direct Bilirubin NT-Pro-B Natriuret Pep Albumin Urine WBC (Auto) 07/18/19 07/18/19 07/19/19 16:35 21:41 03:23 WBC RBC Hgb Hct MCH RDW Plt Count Lymph % (Auto) [place] % (Auto) Lymph # Seg Neutrophils % Seg Neuts % (Manual) Lymphocytes % (Manual) Seg Neutrophils # Lymphocytes # (Manual) PT INR APTT POC ABG pCO2 VBG pH Sodium Potassium Chloride Carbon Dioxide BUN Creatinine Glucose POC Glucose 239 H 301 H 158 H Hemoglobin A1c Lactic Acid Magnesium Direct Bilirubin NT-Pro-B Natriuret Pep Albumin Urine WBC (Auto) 07/19/19 07/19/19 07/19/19 04:18 04:18 06:52 WBC RBC 2.98 L Hgb 8.3 L Hct 24.6 L MCH RDW 15.7 H Plt Count Lymph % (Auto) [place] % (Auto) Lymph # Seg Neutrophils % Seg Neuts % (Manual) Lymphocytes % (Manual) Seg Neutrophils # Lymphocytes # (Manual) PT 16.1 H INR 1.33 H APTT 46.7 H POC ABG pCO2 VBG pH Sodium 134 L Potassium Chloride 93.9 L Carbon Dioxide BUN 26 H Creatinine Glucose 140 H POC Glucose Hemoglobin A1c Lactic Acid Magnesium Direct Bilirubin NT-Pro-B Natriuret Pep Albumin Urine WBC (Auto)
--- NOTE | 2019-07-19 11:52 | Cardiac Catherization Report ---
CARDIAC CATHETERIZATION REPORT REASON FOR STUDY: The patient is a 78-year-old woman who presented with congestive heart failure, past history of chronic atrial fibrillation, on oral anticoagulation therapy. After optimal treatment of heart failure with diuretics, an echocardiogram revealed rheumatic appearing mitral valve with at least moderate mitral stenosis. A cardiac catheterization was recommended for further assessment of the mitral valve disease and congestive heart failure. PROCEDURES: 1. Right heart catheterization. 2. Left heart catheterization. 3. Selective left and right coronary angiography. 4. Left ventricle angiography. 5. Sedation time, start 10:25, and 11:05. DESCRIPTION OF PROCEDURE: The patient was prepped and draped in a sterile fashion after informed consent. The right femoral artery and vein were both entered using Seldinger technique. A 6-Maori sheath was placed in the artery and an 8-[place] sheath in the vein. A Angora-Adrian catheter was then advanced to the pulmonary artery position. A pigtail catheter was advanced into the left ventricle. Cardiac output was measured using the thermodilution method. Simultaneous right and left heart filling pressures were then recorded. The Angora-Adrian catheter was then withdrawn through the right heart chambers and right heart pressures recorded on pullback. Left ventricular angiography was then performed, following which, the pigtail was withdrawn across the aortic valve and transaortic gradient recorded. We then performed a selective left and right coronary angiography. The catheters were then removed, sheaths removed. The arterial site was closed using an Angio-Seal device and venous hemostasis was obtained using manual compression. The patient was returned to the postprocedure unit in stable condition. There were no complications. FINDINGS: HEMODYNAMICS: The mean right atrial pressure was 25. Right ventricular pressure was 85/30. Pulmonary artery pressure was 85/40. The cardiac output was calculated at 7.14 liters per minute, but this may be an overestimation of the true cardiac output due to equipment dysfunction. Left ventricular end-diastolic pressure was 30-35. Pulmonary artery wedge pressure was 40 with V waves of 60. Simultaneous left ventricular end-diastolic and pulmonary artery wedge pressure is calculated mean transmitral gradient of 20. Using the Gorlin equation, the calculated mitral valve area was 1.7 square cm. LEFT VENTRICLE ANGIOGRAPHY: Due to a significant ventricular ectopy during contrast injection, the ejection fraction could not be optimally estimated. Echocardiography is recommended for further left ventricular function assessment. CORONARY ANGIOGRAPHY: The left main coronary artery was angiographically normal. There were mild irregularities of the proximal LAD. Otherwise, this vessel and its diagonal branches were angiographically normal. The circumflex artery and its obtuse marginal branches were angiographically normal. 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 This vessel was dominant and also angiographically normal. CONCLUSION: 1. Marked elevation in right and left heart filling pressures consistent with biventricular heart failure. 2. Severe pulmonary hypertension, pulmonary artery systolic pressure of 85 mmHg. 3. At least mild to moderate mitral valve stenosis. The markedly elevated mean mitral valve gradient appears to be associated with the systolic V waves on the pulmonary artery wedge pressure tracing, the very minimal gradients at end diastole. 4. Essentially, angiographically normal coronary arteries. RECOMMENDATION: 1. Aggressive medical therapy for biventricular heart failure and severe pulmonary hypertension. 2. Further assessment of mitral valve gradient by echocardiography. 3. The patient may not likely be a CT surgical candidate for mitral valve disease due to the severity of pulmonary hypertension. [facility]# [id number] ROSARIO/GURMEET
[2019-07-19] MEDS ORDERED: SODIUM CHLORIDE 0.9% 1000 ML 1,000 ML IV SCH (12:00)
[2019-07-19] MEDS: DIGOXIN 0.25 MG TAB PO SCH (12:48)
[2019-07-19] MEDS: SPIRONOLACTONE 25 MG TAB PO SCH (12:50)
[2019-07-19] MEDS: FAMOTIDINE 10 MG TAB PO SCH ×2 (12:51→22:39)
[2019-07-19] MEDS: guaiFENesin ER 600 MG TAB PO SCH ×2 (12:51→22:39)
[2019-07-19] MEDS: oxyCODONE /ACETAMINOPHEN 5-325MG TAB PO PRN (14:13)
[2019-07-19] MEDS: ENOXAPARIN 100 MG/1 ML INJ SUB-Q SCH ×2 (17:54→22:40)
--- NOTE | 2019-07-19 20:29 | Progress Note ---
Assessment and Plan Assessment and plan: --Severe right knee osteoarthritis; Pain medications, x-ray right knee, elevated Coumadin Physical therapy outpatient. Given stable --Acute exacerbation of congestive heart failure 2-D echo showed EF 35-40% Continue diurese with IV diuretics. Patient is diuresing very well. Still has significant crackles on exam. Lower extremity edema is improved, Beta jaye wasn't tolerable, ACEI on hold for hyperkalemia --Acute respiratory failure with hypoxia Due to CHF exacerbation Patient is stable enough on 2 L of oxygen. Continue diuresis continue nebulizers. Pulmonology following. At present no need for steroids will treat empirically for underlying pneumonia with Levaquin --Moderate mitral valve stenosis Echocardiogram shows a severely thickened and calcified mitral valve leaflet and mitral valve apparatus, with restricted leaflet opening and Doppler mean gradient of greater than 5 mmHg. Findings are consistent with at least moderate mitral stenosis. Right and left heart catheterization on 07/19/2019 --Atrial fibrillation with RVR Recent currently rate suboptimal Status post Cardizem drip Changed to Cardizem and digoxin Warfarin was on hold for possible cardiac cath and elevated INR will place on lovenox for now as INR now low --Supratherapeutic INR, resolved held Coumadin and monitor INR daily --Terrence on Possible CKD, Cr ~15-1.3 likely diabetic nephropathy con to monitor her --UTI, continue s/p Levaquin for 5 days --Right middle lobe pulmonary infiltrate Patient with hazy infiltrate in right lower lobe suspected right lower lobe pneumonia. We'll continue to treat Levaquin daily. --T2DM (type 2 diabetes mellitus) currently Accu-Cheks bg within normal limits. cont insulin Lantus 25 units daily at bedtime. A1c 6.5 --DVT prophylaxis Continue prophylaxis Lovenox. History Interval history: Patient seen and examined No new complaints,vital signs reviewed Hospitalist Physical - Constitutional Vitals: Temp Pulse Resp BP Pulse Ox 98.0 F 99 H 18 124/55 97 07/19/19 16:18 07/19/19 18:26 07/19/19 16:18 07/19/19 18:26 07/19/19 16:18 General appearance: Present: no acute distress, well-nourished, obese - EENT Eyes: Present: PERRL, EOM intact - Neck Neck: Present: supple, normal ROM - Respiratory Respiratory effort: normal Respiratory: bilateral: diminished, negative: rales, rhonchi, wheezing - Cardiovascular Rhythm: irregularly irregular Heart Sounds: Present: S1 & S2 - Extremities Extremities: no ischemia, pulses intact - Abdominal General gastrointestinal: soft, non-tender, non-distended, normal bowel sounds - Integumentary Integumentary: Present: clear, warm - Psychiatric Psychiatric: appropriate mood/affect, cooperative - Neurologic Neurologic: moves all extremities Results - Labs CBC & Chem 7: 07/19/19 06:52 07/19/19 13:45 Labs: Laboratory Last Values WBC 8.1 K/mm3 (4.5-11.0) 07/19/19 06:52 RBC 2.98 M/mm3 (3.65-5.03) L 07/19/19 06:52 Hgb 8.3 gm/dl (10.1-14.3) L 07/19/19 06:52 Hct 24.6 % (30.3-42.9) L 07/19/19 06:52 MCV 82 fl (79-97) 07/19/19 06:52 MCH 28 pg (28-32) 07/19/19 06:52 MCHC 34 % (30-34) 07/19/19 06:52 RDW 15.7 % (13.2-15.2) H 07/19/19 06:52 Plt Count 174 K/mm3 (140-440) 07/19/19 06:52 Lymph % (Auto) 9.9 % (13.4-35.0) L 07/13/19 05:13 [place] % (Auto) 7.6 % (0.0-7.3) H 07/13/19 05:13 Eos % (Auto) 1.8 % (0.0-4.3) 07/13/19 05:13 Baso % (Auto) 0.4 % (0.0-1.8) 07/13/19 05:13 Lymph # 0.8 K/mm3 (1.2-5.4) L 07/13/19 05:13 [place] # 0.6 K/mm3 (0.0-0.8) 07/13/19 05:13 Eos # 0.1 K/mm3 (0.0-0.4) 07/13/19 05:13 Baso # 0.0 K/mm3 (0.0-0.1) 07/13/19 05:13 Add Manual Diff Complete 07/11/19 04:34 Total Counted 100 07/11/19 04:34 Seg Neutrophils % 80.3 % (40.0-70.0) H 07/13/19 05:13 Seg Neuts % (Manual) 93.0 % (40.0-70.0) H 07/11/19 04:34 Band Neutrophils % 0 % 07/11/19 04:34 Lymphocytes % (Manual) 4.0 % (13.4-35.0) L 07/11/19 04:34 Reactive Lymphs % (Man) 0 % 07/11/19 04:34 Monocytes % (Manual) 3.0 % (0.0-7.3) 07/11/19 04:34 Eosinophils % (Manual) 0 % (0.0-4.3) 07/11/19 04:34 Basophils % (Manual) 0 % (0.0-1.8) 07/11/19 04:34 Metamyelocytes % 0 % 07/11/19 04:34 Myelocytes % 0 % 07/11/19 04:34 Promyelocytes % 0 % 07/11/19 04:34 Blast Cells % 0 % 07/11/19 04:34 Nucleated RBC % Not Reportable 07/11/19 04:34 Seg Neutrophils # 6.3 K/mm3 (1.8-7.7) 07/13/19 05:13 Seg Neutrophils # Man 6.7 K/mm3 (1.8-7.7) 07/11/19 04:34 Band Neutrophils # 0.0 K/mm3 07/11/19 04:34 Lymphocytes # (Manual) 0.3 K/mm3 (1.2-5.4) L 07/11/19 04:34 Abs React Lymphs (Man) 0.0 K/mm3 07/11/19 04:34 Monocytes # (Manual) 0.2 K/mm3 (0.0-0.8) 07/11/19 04:34 Eosinophils # (Manual) 0.0 K/mm3 (0.0-0.4) 07/11/19 04:34 Basophils # (Manual) 0.0 K/mm3 (0.0-0.1) 07/11/19 04:34 Metamyelocytes # 0.0 K/mm3 07/11/19 04:34 Myelocytes # 0.0 K/mm3 07/11/19 04:34 Promyelocytes # 0.0 K/mm3 07/11/19 04:34 Blast Cells # 0.0 K/mm3 07/11/19 04:34 WBC Morphology Not Reportable 07/11/19 04:34 Hypersegmented Neuts Not Reportable 07/11/19 04:34 Hyposegmented Neuts Not Reportable 07/11/19 04:34 Hypogranular Neuts Not Reportable 07/11/19 04:34 Smudge Cells Not Reportable 07/11/19 04:34 Toxic Granulation Not Reportable 07/11/19 04:34 Toxic Vacuolation Not Reportable 07/11/19 04:34 Dohle Bodies Not Reportable 07/11/19 04:34 Pelger-Huet Anomaly Not Reportable 07/11/19 04:34 Jeri Rods Not Reportable 07/11/19 04:34 Platelet Estimate Not Reportable 07/11/19 04:34 Clumped Platelets Not Reportable 07/11/19 04:34 Plt Clumps, EDTA Not Reportable 07/11/19 04:34 Large Platelets Not Reportable 07/11/19 04:34 Giant Platelets Not Reportable 07/11/19 04:34 Platelet Satelliting Not Reportable 07/11/19 04:34 Plt Morphology Comment Not Reportable 07/11/19 04:34 RBC Morphology Normal 07/11/19 04:34 Dimorphic RBCs Not Reportable 07/11/19 04:34 Polychromasia Not Reportable 07/11/19 04:34 Hypochromasia Not Reportable 07/11/19 04:34 Poikilocytosis Not Reportable 07/11/19 04:34 Anisocytosis Not Reportable 07/11/19 04:34 Microcytosis Not Reportable 07/11/19 04:34 Macrocytosis Not Reportable 07/11/19 04:34 Spherocytes Not Reportable 07/11/19 04:34 Pappenheimer Bodies Not Reportable 07/11/19 04:34 Sickle Cells Not Reportable 07/11/19 04:34 Target Cells Not Reportable 07/11/19 04:34 Tear Drop Cells Not Reportable 07/11/19 04:34 Ovalocytes Not Reportable 07/11/19 04:34 Helmet Cells Not Reportable 07/11/19 04:34 Akins-Opheim Bodies Not Reportable 07/11/19 04:34 [place] Rings Not Reportable 07/11/19 04:34 Yandy Cells Not Reportable 07/11/19 04:34 Bite Cells Not Reportable 07/11/19 04:34 Crenated Cell Not Reportable 07/11/19 04:34 Elliptocytes Not Reportable 07/11/19 04:34 Acanthocytes (Spur) Not Reportable 07/11/19 04:34 Rouleaux Not Reportable 07/11/19 04:34 Hemoglobin C Crystals Not Reportable 07/11/19 04:34 Schistocytes Not Reportable 07/11/19 04:34 Malaria parasites Not Reportable 07/11/19 04:34 Hayden Bodies Not Reportable 07/11/19 04:34 Hem Pathologist Commnt No 07/11/19 04:34 PT 16.1 Sec. (12.2-14.9) H 07/19/19 04:18 INR 1.33 (0.87-1.13) H 07/19/19 04:18 APTT 46.7 Sec. (24.2-36.6) H 07/19/19 04:18 POC ABG pH 7.363 (7.35-7.45) 07/10/19 12:03 POC ABG pCO2 34.3 (35-45) L 07/10/19 12:03 POC ABG pO2 100 (80-105) 07/10/19 12:03 POC ABG HCO3 19.5 (22-26 mml/L) 07/10/19 12:03 POC ABG Total CO2 21 (23-27mmol/L) 07/10/19 12:03 POC ABG O2 Sat 98 07/10/19 12:03 POC ABG Base Excess -6 ((-2) - (+3)mmol/L) 07/10/19 12:03 VBG pH 7.272 (7.320-7.420) L 07/10/19 11:45 FiO2 60 % 07/10/19 12:03 Sodium 135 mmol/L (137-145) L 07/19/19 13:45 Potassium 3.8 mmol/L (3.6-5.0) 07/19/19 13:45 Chloride 93.1 mmol/L (98-107) L 07/19/19 13:45 Carbon Dioxide 31 mmol/L (22-30) H 07/19/19 13:45 Anion Gap 15 mmol/L 07/19/19 13:45 BUN 24 mg/dL (7-17) H 07/19/19 13:45 Creatinine 1.1 mg/dL (0.7-1.2) 07/19/19 13:45 Estimated GFR 48 ml/min 07/19/19 13:45 BUN/Creatinine Ratio 22 % 07/19/19 13:45 Glucose 180 mg/dL (65-100) H 07/19/19 13:45 POC Glucose 286 (70-105) H 07/19/19 16:25 Hemoglobin A1c 6.5 % (4-6) H 07/10/19 19:49 Lactic Acid 2.70 mmol/L (0.7-2.0) H* 07/10/19 13:34 Calcium 9.0 mg/dL (8.4-10.2) 07/19/19 13:45 Magnesium 2.40 mg/dL (1.7-2.3) H 07/13/19 05:13 Total Bilirubin 0.80 mg/dL (0.1-1.2) 07/11/19 04:34 Direct Bilirubin 0.4 mg/dL (0-0.2) H 07/10/19 11:45 Indirect Bilirubin 0.4 mg/dL 07/10/19 11:45 AST 29 units/L (5-40) 07/11/19 04:34 ALT 16 units/L (7-56) 07/11/19 04:34 Alkaline Phosphatase 65 units/L (35-129) 07/11/19 04:34 Total Creatine Kinase 40 units/L (30-135) 07/10/19 11:45 CK-MB (CK-2) 1.4 ng/mL (0.0-4.0) 07/10/19 11:45 CK-MB (CK-2) Rel Index 3.5 (0-4) 07/10/19 11:45 Troponin T < 0.010 ng/mL (0.00-0.029) 07/10/19 11:45 NT-Pro-B Natriuret Pep 1548 pg/mL (0-900) H 07/10/19 11:45 Total Protein 7.5 g/dL (6.3-8.2) 07/11/19 04:34 Albumin 3.5 g/dL (3.9-5) L 07/11/19 04:34 Albumin/Globulin Ratio 0.9 % 07/11/19 04:34 Urine Color [place] (Yellow) 07/10/19 12:12 Urine Turbidity Cloudy (Clear) 07/10/19 12:12 Urine pH 5.0 (5.0-7.0) 07/10/19 12:12 Ur Specific [place] 1.017 (1.003-1.030) 07/10/19 12:12 Urine Protein 100 mg/dl mg/dL (Negative) 07/10/19 12:12 Urine Glucose (UA) 50 mg/dL (Negative) 07/10/19 12:12 Urine Ketones Neg mg/dL (Negative) 07/10/19 12:12 Urine Blood Sm (Negative) 07/10/19 12:12 Urine Nitrite Neg (Negative) 07/10/19 12:12 Urine Bilirubin Neg (Negative) 07/10/19 12:12 Urine Urobilinogen < 2.0 mg/dL (<2.0) 07/10/19 12:12 Ur Leukocyte Esterase Lg (Negative) 07/10/19 12:12 Urine WBC (Auto) 67.0 /HPF (0.0-6.0) H 07/10/19 12:12 Urine RBC (Auto) 7.0 /HPF (0.0-6.0) 07/10/19 12:12 U Epithel Cells (Auto) < 1.0 /HPF (0-13.0) 07/10/19 12:12 Urine Bacteria (Auto) 1+ /HPF (Negative) 07/10/19 12:12 Urine WBC Clumps 3+ /HPF 07/10/19 12:12 Urine Mucus Few /HPF 07/10/19 12:12 Blood Type B POSITIVE 07/10/19 11:45 Antibody Screen Negative 07/10/19 11:45 Active Medications - Current Medications Current Medications: Generic Name Dose Route Start Last Admin Trade Name Freq PRN Reason Stop Dose Admin Acetaminophen 650 mg 07/10/19 19:06 Tylenol PO Q4H PRN Pain MILD(1-3)/Fever >100.5/SPICER Albuterol 2.5 mg 07/19/19 09:00 07/19/19 09:00 Proventil IH 07/19/19 21:00 2.5 mg PREOP NR Administration Dextrose 50 ml 07/11/19 12:12 D50w (25gm) Syringe IV PRN PRN Hypoglycemia Digoxin 0.25 mg 07/11/19 13:00 07/19/19 12:48 Lanoxin PO 0.25 mg Q48H MEME Administration Diltiazem HCl 60 mg 07/13/19 12:00 07/19/19 18:26 Cardizem PO 60 mg Q6HR MEME Administration Enoxaparin Sodium 100 mg 07/16/19 10:00 07/19/19 17:54 Lovenox SUB-Q Not Given Q12HR MEME Famotidine 10 mg 07/12/19 10:00 07/19/19 12:51 Pepcid PO 10 mg BID MEME Administration Furosemide 40 mg 07/13/19 18:00 07/19/19 18:31 Lasix IV 40 mg 0600,1800 MEME Administration Guaifenesin 600 mg 07/13/19 10:00 07/19/19 12:51 Mucinex Er PO 600 mg BID MEME Administration Hydralazine HCl 20 mg 07/11/19 12:15 Apresoline IV Q6H PRN Hypertension Insulin Glargine 32 units 07/17/19 22:00 07/18/19 22:11 Lantus SUB-Q 32 units QHS MEME Administration Insulin Human Regular 0 units 07/11/19 16:30 07/19/19 18:21 Humulin R SUB-Q 4 units ACHS MEME Administration Protocol Ondansetron HCl 4 mg 07/10/19 19:06 Zofran IV Q8H PRN Nausea And Vomiting Oxycodone/Acetaminophen 1 tab 07/10/19 19:06 07/19/19 14:13 Percocet 5/325 PO 1 tab Q6H PRN Administration Pain, Moderate (4-6) Sodium Chloride 10 ml 07/10/19 22:00 07/19/19 14:07 Sodium Chloride Flush Syringe 10 Ml IV 10 ml BID MEME Administration Sodium Chloride 10 ml 07/10/19 19:06 Sodium Chloride Flush Syringe 10 Ml IV PRN PRN LINE FLUSH Spironolactone 25 mg 07/14/19 10:00 07/19/19 12:50 Aldactone PO 25 mg QDAY MEME Administration Nutrition/Malnutrition Assess - Dietary Evaluation Nutrition/Malnutrition Findings: Nutrition Notes Start: 07/16/19 15:04 Freq: Status: Active Protocol: Document 07/19/19 12:01 OH (Rec: 07/19/19 12:07 OH [id number]) Nutrition Notes Initial or Follow up Reassessment Current Diagnosis Acute Kidney Injury,Diabetes, Heart Failure Other Pertinent Diagnosis UTI, Possible CKD Current Diet npo Labs/Tests Reviewed Pertinent Medications Reviewed Height 5 ft 4 in Weight 104 kg [place] Body Weight (kg) 54.54 BMI 39.3 Subjective/Other Information Pt. not in room secondary to having cardiac cath procedure. Percent of energy/protein needs met: 0/0% Burn Absent Trauma Absent Is patient on ventilator? No Is Patient Ambulatory and/or Out of Bed Yes REE-([place]-St. Jeor-ambulatory/OOB) [ 1963.000 [id number]] Kcal/Kg value to use for calculation 14 Approximate Energy Requirements Using 1456 kcal/Kg Calculation Used for Recommendations Kcal/kg Additional Notes Protein Needs: 63-79g (0.8-1g/ kg 79kg adjBW) Fluid Needs: 1 ml/kcal Nutrition Intervention Change Diet Order: Resume Consistent CHO diet upon procedure completion Goal #1 Meet at least 75% of calorie and protein needs via PO intakes Anticipated Discharge Needs: Coumadin/dietary education Follow-Up By: 07/21/19 Additional Comments f/u po intake
[2019-07-19] MEDS: INSULIN GLARGINE 100 UNITS/ML SUB-Q SCH (22:44)
[2019-07-20] MEDS: dilTIAZem 60 MG TAB PO SCH ×3 (01:18→15:34)
[2019-07-20] MEDS: FUROSEMIDE 40 MG/4 ML INJ IV SCH (05:24)
[2019-07-20] MEDS: guaiFENesin ER 600 MG TAB PO SCH (10:30)
[2019-07-20] MEDS: FAMOTIDINE 10 MG TAB PO SCH (10:30)
[2019-07-20] MEDS: ENOXAPARIN 100 MG/1 ML INJ SUB-Q SCH (10:30)
[2019-07-20] MEDS: INSULIN REGULAR, HUMAN 100 UNITS/1 ML SUB-Q SCH ×2 (10:31→12:19)
[2019-07-20] MEDS: SPIRONOLACTONE 25 MG TAB PO SCH (10:32)
--- NOTE | 2019-07-20 11:43 | Progress Note ---
Assessment and Plan 78 y/o female with acute hypoxic respiratory failure secondary to pulmonary edema, afib with RVR, hypertension and presumptive acute renal failure and most likely a UTI that is asymptomatic. Please see my event note from yesterday. Same recommendations apply. Patient is on room air and stable. If a valve is what she needs or some form of surgery, I do not believe that she has significant enough pulmonary disease if any disease to stop repair/replacement from happening. Subjective Date of service: 07/20/19 Principal diagnosis: acute respiratory failure Interval history: No acute events. Weaned to room air with good sats. Objective Vital Signs - 12hr 07/20/19 07/20/19 07/20/19 00:08 00:25 01:18 Temperature 98.5 F Pulse Rate 113 H 104 H Respiratory 20 Rate Blood Pressure 134/51 134/51 O2 Sat by Pulse 99 Oximetry 07/20/19 07/20/19 07/20/19 04:41 05:25 05:38 Temperature 98.4 F Pulse Rate 114 H 102 H Respiratory 22 Rate Blood Pressure 146/62 146/62 O2 Sat by Pulse 97 Oximetry 07/20/19 07/20/19 08:24 10:32 Temperature 98.1 F Pulse Rate 78 78 Respiratory 18 Rate Blood Pressure 138/45 138/45 O2 Sat by Pulse 92 Oximetry Constitutional: no acute distress, alert Eyes: non-icteric ENT: oropharynx moist Neck: supple Effort: normal Ascultation: Bilateral: wheezes, rales, rhonchi Percussion: Bilateral: not dull Tactile fremitus: Bilateral: normal Cardiovascular: irregular rhythm (tachy, no mrg) Gastrointestinal: normoactive bowel sounds, soft, non-tender, non-distended Integumentary: normal Extremities: no cyanosis, no edema, pink and warm, edema (bilateral lower ext, per patient and family, this is improved) Neurologic: normal mental status, non-focal exam, pupils equal and round, CN II- XII normal Psychiatric: mood appropriate, affect normal CBC and BMP: 07/19/19 06:52 07/19/19 13:45 ABG, PT/INR, D-dimer: ABG POC ABG pH 7.363 (7.35-7.45) 07/10/19 12:03 POC ABG pCO2 34.3 (35-45) L 07/10/19 12:03 POC ABG pO2 100 (80-105) 07/10/19 12:03 POC ABG HCO3 19.5 (22-26 mml/L) 07/10/19 12:03 POC ABG Total CO2 21 (23-27mmol/L) 07/10/19 12:03 POC ABG O2 Sat 98 07/10/19 12:03 PT/INR, D-dimer PT 16.1 Sec. (12.2-14.9) H 07/19/19 04:18 INR 1.33 (0.87-1.13) H 07/19/19 04:18 Abnormal lab findings: Abnormal Labs 07/10/19 07/10/19 07/10/19 11:45 11:45 11:45 WBC 12.5 H RBC 3.56 L Hgb 9.5 L Hct 29.9 L MCH 27 L RDW 15.6 H Plt Count Lymph % (Auto) 5.2 L [place] % (Auto) Lymph # 0.7 L Seg Neutrophils % 89.1 H Seg Neuts % (Manual) Lymphocytes % (Manual) Seg Neutrophils # 11.2 H Lymphocytes # (Manual) PT 31.5 H INR 3.11 H APTT 43.9 H POC ABG pCO2 VBG pH Sodium 131 L Potassium Chloride 92.4 L Carbon Dioxide 19 L BUN 20 H Creatinine 1.4 H Glucose 370 H POC Glucose Hemoglobin A1c Lactic Acid Magnesium Direct Bilirubin NT-Pro-B Natriuret Pep Albumin Urine WBC (Auto) 07/10/19 07/10/19 07/10/19 11:45 11:45 11:45 WBC RBC Hgb Hct MCH RDW Plt Count Lymph % (Auto) [place] % (Auto) Lymph # Seg Neutrophils % Seg Neuts % (Manual) Lymphocytes % (Manual) Seg Neutrophils # Lymphocytes # (Manual) PT INR APTT POC ABG pCO2 VBG pH 7.272 L Sodium Potassium Chloride Carbon Dioxide BUN Creatinine Glucose POC Glucose Hemoglobin A1c Lactic Acid 3.70 H* Magnesium Direct Bilirubin 0.4 H NT-Pro-B Natriuret Pep 1548 H Albumin Urine WBC (Auto) 07/10/19 07/10/19 07/10/19 12:03 12:12 12:53 WBC RBC Hgb Hct MCH RDW Plt Count Lymph % (Auto) [place] % (Auto) Lymph # Seg Neutrophils % Seg Neuts % (Manual) Lymphocytes % (Manual) Seg Neutrophils # Lymphocytes # (Manual) PT INR APTT POC ABG pCO2 34.3 L VBG pH Sodium Potassium Chloride Carbon Dioxide BUN Creatinine Glucose POC Glucose Hemoglobin A1c Lactic Acid 3.00 H* Magnesium Direct Bilirubin NT-Pro-B Natriuret Pep Albumin Urine WBC (Auto) 67.0 H 07/10/19 07/10/19 07/10/19 13:34 13:52 15:50 WBC RBC Hgb Hct MCH RDW Plt Count Lymph % (Auto) [place] % (Auto) Lymph # Seg Neutrophils % Seg Neuts % (Manual) Lymphocytes % (Manual) Seg Neutrophils # Lymphocytes # (Manual) PT INR APTT POC ABG pCO2 VBG pH Sodium Potassium Chloride Carbon Dioxide BUN Creatinine Glucose POC Glucose 279 H 244 H Hemoglobin A1c Lactic Acid 2.70 H* Magnesium Direct Bilirubin NT-Pro-B Natriuret Pep Albumin Urine WBC (Auto) 07/10/19 07/10/19 07/11/19 19:49 21:43 04:34 WBC RBC 3.34 L Hgb 9.1 L Hct 28.2 L MCH 27 L RDW 15.7 H Plt Count 125 L Lymph % (Auto) [place] % (Auto) Lymph # Seg Neutrophils % Seg Neuts % (Manual) 93.0 H Lymphocytes % (Manual) 4.0 L Seg Neutrophils # Lymphocytes # (Manual) 0.3 L PT INR APTT POC ABG pCO2 VBG pH Sodium Potassium Chloride Carbon Dioxide BUN Creatinine Glucose POC Glucose 202 H Hemoglobin A1c 6.5 H Lactic Acid Magnesium Direct Bilirubin NT-Pro-B Natriuret Pep Albumin Urine WBC (Auto) 07/11/19 07/11/19 07/11/19 04:34 15:56 20:59 WBC RBC Hgb Hct MCH RDW Plt Count Lymph % (Auto) [place] % (Auto) Lymph # Seg Neutrophils % Seg Neuts % (Manual) Lymphocytes % (Manual) Seg Neutrophils # Lymphocytes # (Manual) PT INR APTT POC ABG pCO2 VBG pH Sodium 132 L Potassium 5.5 H D Chloride Carbon Dioxide BUN 25 H Creatinine 1.5 H Glucose 236 H POC Glucose 401 H 397 H Hemoglobin A1c Lactic Acid Magnesium Direct Bilirubin NT-Pro-B Natriuret Pep Albumin 3.5 L Urine WBC (Auto) 07/12/19 07/12/19 07/12/19 09:26 12:09 19:03 WBC RBC Hgb Hct MCH RDW Plt Count Lymph % (Auto) [place] % (Auto) Lymph # Seg Neutrophils % Seg Neuts % (Manual) Lymphocytes % (Manual) Seg Neutrophils # Lymphocytes # (Manual) PT INR APTT POC ABG pCO2 VBG pH Sodium Potassium Chloride Carbon Dioxide BUN Creatinine Glucose POC Glucose 236 H 261 H 278 H Hemoglobin A1c Lactic Acid Magnesium Direct Bilirubin NT-Pro-B Natriuret Pep Albumin Urine WBC (Auto) 07/12/19 07/13/19 07/13/19 21:53 05:13 05:13 WBC RBC 3.14 L Hgb 8.8 L Hct 26.0 L MCH RDW 15.8 H Plt Count Lymph % (Auto) 9.9 L [place] % (Auto) 7.6 H Lymph # 0.8 L Seg Neutrophils % 80.3 H Seg Neuts % (Manual) Lymphocytes % (Manual) Seg Neutrophils # Lymphocytes # (Manual) PT INR APTT POC ABG pCO2 VBG pH Sodium 134 L Potassium Chloride Carbon Dioxide BUN 45 H Creatinine 1.5 H Glucose 192 H POC Glucose 233 H Hemoglobin A1c Lactic Acid Magnesium 2.40 H Direct Bilirubin NT-Pro-B Natriuret Pep Albumin Urine WBC (Auto) 07/13/19 07/13/19 07/13/19 05:13 08:08 12:29 WBC RBC Hgb Hct MCH RDW Plt Count Lymph % (Auto) [place] % (Auto) Lymph # Seg Neutrophils % Seg Neuts % (Manual) Lymphocytes % (Manual) Seg Neutrophils # Lymphocytes # (Manual) PT 25.7 H INR 2.40 H APTT POC ABG pCO2 VBG pH Sodium Potassium Chloride Carbon Dioxide BUN Creatinine Glucose POC Glucose 206 H 300 H Hemoglobin A1c Lactic Acid Magnesium Direct Bilirubin NT-Pro-B Natriuret Pep Albumin Urine WBC (Auto) 07/13/19 07/13/19 07/14/19 16:39 20:43 07:54 WBC RBC Hgb Hct MCH RDW Plt Count Lymph % (Auto) [place] % (Auto) Lymph # Seg Neutrophils % Seg Neuts % (Manual) Lymphocytes % (Manual) Seg Neutrophils # Lymphocytes # (Manual) PT INR APTT POC ABG pCO2 VBG pH Sodium Potassium Chloride Carbon Dioxide BUN Creatinine Glucose POC Glucose 230 H 253 H 138 H Hemoglobin A1c Lactic Acid Magnesium Direct Bilirubin NT-Pro-B Natriuret Pep Albumin Urine WBC (Auto) 07/14/19 07/14/19 07/14/19 08:59 12:37 16:46 WBC RBC Hgb Hct MCH RDW Plt Count Lymph % (Auto) [place] % (Auto) Lymph # Seg Neutrophils % Seg Neuts % (Manual) Lymphocytes % (Manual) Seg Neutrophils # Lymphocytes # (Manual) PT INR APTT POC ABG pCO2 VBG pH Sodium 136 L Potassium Chloride Carbon Dioxide BUN 39 H Creatinine 1.3 H Glucose 143 H POC Glucose 298 H 197 H Hemoglobin A1c Lactic Acid Magnesium Direct Bilirubin NT-Pro-B Natriuret Pep Albumin Urine WBC (Auto) 07/14/19 07/15/19 07/15/19 20:19 08:28 09:01 WBC RBC Hgb Hct MCH RDW Plt Count Lymph % (Auto) [place] % (Auto) Lymph # Seg Neutrophils % Seg Neuts % (Manual) Lymphocytes % (Manual) Seg Neutrophils # Lymphocytes # (Manual) PT 18.2 H INR 1.55 H APTT POC ABG pCO2 VBG pH Sodium Potassium Chloride Carbon Dioxide BUN Creatinine Glucose POC Glucose 205 H 144 H Hemoglobin A1c Lactic Acid Magnesium Direct Bilirubin NT-Pro-B Natriuret Pep Albumin Urine WBC (Auto) 07/15/19 07/15/19 07/15/19 09:01 11:41 17:08 WBC RBC Hgb Hct MCH RDW Plt Count Lymph % (Auto) [place] % (Auto) Lymph # Seg Neutrophils % Seg Neuts % (Manual) Lymphocytes % (Manual) Seg Neutrophils # Lymphocytes # (Manual) PT INR APTT POC ABG pCO2 VBG pH Sodium Potassium Chloride 97.5 L Carbon Dioxide 21 L BUN 34 H Creatinine Glucose 172 H POC Glucose 218 H 191 H Hemoglobin A1c Lactic Acid Magnesium Direct Bilirubin NT-Pro-B Natriuret Pep Albumin Urine WBC (Auto) 07/15/19 07/16/19 07/16/19 21:20 04:01 09:47 WBC RBC Hgb Hct MCH RDW Plt Count Lymph % (Auto) [place] % (Auto) Lymph # Seg Neutrophils % Seg Neuts % (Manual) Lymphocytes % (Manual) Seg Neutrophils # Lymphocytes # (Manual) PT INR APTT POC ABG pCO2 VBG pH Sodium Potassium Chloride Carbon Dioxide BUN 29 H Creatinine Glucose 108 H POC Glucose 201 H 324 H Hemoglobin A1c Lactic Acid Magnesium Direct Bilirubin NT-Pro-B Natriuret Pep Albumin Urine WBC (Auto) 07/16/19 07/16/19 07/16/19 12:27 17:45 21:35 WBC RBC Hgb Hct MCH RDW Plt Count Lymph % (Auto) [place] % (Auto) Lymph # Seg Neutrophils % Seg Neuts % (Manual) Lymphocytes % (Manual) Seg Neutrophils # Lymphocytes # (Manual) PT INR APTT POC ABG pCO2 VBG pH Sodium Potassium Chloride Carbon Dioxide BUN Creatinine Glucose POC Glucose 210 H 140 H 348 H Hemoglobin A1c Lactic Acid Magnesium Direct Bilirubin NT-Pro-B Natriuret Pep Albumin Urine WBC (Auto) 07/17/19 07/17/19 07/17/19 08:37 11:57 17:16 WBC RBC Hgb Hct MCH RDW Plt Count Lymph % (Auto) [place] % (Auto) Lymph # Seg Neutrophils % Seg Neuts % (Manual) Lymphocytes % (Manual) Seg Neutrophils # Lymphocytes # (Manual) PT INR APTT POC ABG pCO2 VBG pH Sodium Potassium Chloride Carbon Dioxide BUN Creatinine Glucose POC Glucose 178 H 283 H 185 H Hemoglobin A1c Lactic Acid Magnesium Direct Bilirubin NT-Pro-B Natriuret Pep Albumin Urine WBC (Auto) 07/17/19 07/18/19 07/18/19 22:08 08:23 11:23 WBC RBC Hgb Hct MCH RDW Plt Count Lymph % (Auto) [place] % (Auto) Lymph # Seg Neutrophils % Seg Neuts % (Manual) Lymphocytes % (Manual) Seg Neutrophils # Lymphocytes # (Manual) PT INR APTT POC ABG pCO2 VBG pH Sodium Potassium Chloride Carbon Dioxide BUN Creatinine Glucose POC Glucose 197 H 208 H 367 H Hemoglobin A1c Lactic Acid Magnesium Direct Bilirubin NT-Pro-B Natriuret Pep Albumin Urine WBC (Auto) 07/18/19 07/18/19 07/19/19 16:35 21:41 03:23 WBC RBC Hgb Hct MCH RDW Plt Count Lymph % (Auto) [place] % (Auto) Lymph # Seg Neutrophils % Seg Neuts % (Manual) Lymphocytes % (Manual) Seg Neutrophils # Lymphocytes # (Manual) PT INR APTT POC ABG pCO2 VBG pH Sodium Potassium Chloride Carbon Dioxide BUN Creatinine Glucose POC Glucose 239 H 301 H 158 H Hemoglobin A1c Lactic Acid Magnesium Direct Bilirubin NT-Pro-B Natriuret Pep Albumin Urine WBC (Auto) 07/19/19 07/19/19 07/19/19 04:18 04:18 06:52 WBC RBC 2.98 L Hgb 8.3 L Hct 24.6 L MCH RDW 15.7 H Plt Count Lymph % (Auto) [place] % (Auto) Lymph # Seg Neutrophils % Seg Neuts % (Manual) Lymphocytes % (Manual) Seg Neutrophils # Lymphocytes # (Manual) PT 16.1 H INR 1.33 H APTT 46.7 H POC ABG pCO2 VBG pH Sodium 134 L Potassium Chloride 93.9 L Carbon Dioxide BUN 26 H Creatinine Glucose 140 H POC Glucose Hemoglobin A1c Lactic Acid Magnesium Direct Bilirubin NT-Pro-B Natriuret Pep Albumin Urine WBC (Auto) 07/19/19 07/19/19 07/19/19 12:44 13:45 16:25 WBC RBC Hgb Hct MCH RDW Plt Count Lymph % (Auto) [place] % (Auto) Lymph # Seg Neutrophils % Seg Neuts % (Manual) Lymphocytes % (Manual) Seg Neutrophils # Lymphocytes # (Manual) PT INR APTT POC ABG pCO2 VBG pH Sodium 135 L Potassium Chloride 93.1 L Carbon Dioxide 31 H BUN 24 H Creatinine Glucose 180 H POC Glucose 200 H 286 H Hemoglobin A1c Lactic Acid Magnesium Direct Bilirubin NT-Pro-B Natriuret Pep Albumin Urine WBC (Auto) 07/19/19 07/20/19 21:26 08:28 WBC RBC Hgb Hct MCH RDW Plt Count Lymph % (Auto) [place] % (Auto) Lymph # Seg Neutrophils % Seg Neuts % (Manual) Lymphocytes % (Manual) Seg Neutrophils # Lymphocytes # (Manual) PT INR APTT POC ABG pCO2 VBG pH Sodium Potassium Chloride Carbon Dioxide BUN Creatinine Glucose POC Glucose 250 H 194 H Hemoglobin A1c Lactic Acid Magnesium Direct Bilirubin NT-Pro-B Natriuret Pep Albumin Urine WBC (Auto)
--- NOTE | 2019-07-20 12:15 | Progress Note ---
Assessment and Plan Acute congestive heart failure exacerbation Chronic atrial fibrillation rate controlled with digoxin and diltiazem on warfarin as an outpatient Acute renal failure Anemia UTI Echocardiogram shows a severely thickened and calcified mitral valve leaflet and mitral valve apparatus, with restricted leaflet opening and Doppler mean gradie nt of greater than 5 mmHg. Findings are consistent with at least moderate mitral stenosis. The left ventricular systolic function is moderately impaired, ejection fraction is estimated at 35-40%. Right and Left heart catheterization findings: Angiographically normal coronary arteries. At least mild to moderate mitral stenosis. Severe pulmonary hypertension with pulmonary artery systolic pressure of 85 mmHg. Recommendations: Medical therapy for heart failure and pulmonary hypertension. Resume oral anticoagulation with warfarin at 5 mg daily with lovenox bridge. Stable cardiac [place] for discharge. Patient will follow up with her primary genetic physician for an INR check in 5 days. Subjective Date of service: 07/20/19 Principal diagnosis: acute respiratory failure Interval history: No cardiac events overnight. Objective Vital Signs Temp Pulse Resp BP Pulse Ox 07/20/19 10:32 78 138/45 07/20/19 08:24 98.1 F 78 18 138/45 92 07/20/19 05:38 102 H 07/20/19 05:25 146/62 07/20/19 04:41 98.4 F 114 H 22 146/62 97 07/20/19 01:18 134/51 07/20/19 00:25 104 H 07/20/19 00:08 98.5 F 113 H 20 134/51 99 07/19/19 22:00 86 07/19/19 20:03 97.8 F 111 H 20 149/70 97 07/19/19 18:26 99 H 124/55 07/19/19 16:18 98.0 F 99 H 18 124/55 97 07/19/19 15:13 20 07/19/19 14:13 18 07/19/19 12:49 72 151/60 07/19/19 12:48 72 151/60 07/19/19 12:31 98.4 F 18 151/60 - Physical Examination General: No Apparent Distress HEENT: Positive: PERRL Neck: Positive: neck supple Cardiac: Positive: irregularly irregular Lungs: Positive: Decreased Breath Sounds Neuro: Positive: Grossly Intact Extremities: Present: +1 Edema - Labs and Meds Comprehensive Metabolic Panel 07/19/19 Range/Units 13:45 Sodium 135 L (137-145) mmol/L Potassium 3.8 (3.6-5.0) mmol/L Chloride 93.1 L (98-107) mmol/L Carbon Dioxide 31 H (22-30) mmol/L BUN 24 H (7-17) mg/dL Creatinine 1.1 (0.7-1.2) mg/dL Glucose 180 H (65-100) mg/dL Calcium 9.0 (8.4-10.2) mg/dL
[2019-07-20] MEDS ORDERED: methylPREDNISolone ACETATE 80 MG/1 ML INJ INTRA-ARTI ONE (13:29)
[2019-07-20] MEDS ORDERED: LIDOCAINE (1%) 10 MG/1 ML VIAL 20 ML MDV INFILTRATI NR (13:45)
--- NOTE | 2019-07-20 14:01 | Consultation ---
History of Present Illness - HPI Consult date: 07/20/19 Consult reason: joint pain History of present illness: 78 y/o female with c/o left knee pain and swelling for past several days, no hx of injury past medical hx of right total hip replacement 2 yrs ago...denies hx of injury prior to onset... Past History Past Medical History: atrial fib, cancer, diabetes, hypertension Past Surgical History: mastectomy Social history: no significant social history, lives with family Family history: no significant family history Medications and Allergies Allergies Allergy/AdvReac Type Severity Reaction Status Date / Time meperidine [From Demerol] Allergy Anaphylaxis Verified 07/10/19 12:26 Penicillins Allergy Anaphylaxis Verified 07/10/19 12:25 Home Medications Medication Instructions Recorded Confirmed Last Taken Type Calcium + Vitamin D3 Gummies 1 tab PO QDAY 07/10/19 07/10/19 Unknown History Digoxin [Lanoxin] 0.25 mg PO DAILY 07/10/19 07/10/19 Unknown History Furosemide [Lasix] 20 mg PO QDAY 07/10/19 07/10/19 Unknown History Insulin Glargine,Hum.rec.anlog 35 unit SQ QDAY 07/10/19 07/10/19 Unknown History [Lantus Solostar] Metformin HCl [metFORMIN] 1,000 mg PO BID 07/10/19 07/10/19 Unknown History Multivitamin 1 tab PO QDAY 07/10/19 07/10/19 Unknown History Olmesartan (Nf) 2 tab QDAY 07/10/19 07/10/19 Unknown History Potassium Chloride [K-Dur] 1 tab PO QDAY 07/10/19 07/10/19 Unknown History Warfarin [Coumadin] 5 mg PO QDAY 07/10/19 07/10/19 Unknown History Warfarin [Coumadin] 7.5 mg PO QDAY 07/10/19 07/10/19 Unknown History traMADol [Ultram] 50 mg PO Q12HR PRN 07/10/19 07/10/19 Unknown History Active Meds: Active Medications Acetaminophen (Tylenol) 650 mg PO Q4H PRN PRN Reason: Pain MILD(1-3)/Fever >100.5/SPICER Dextrose (D50w (25gm) Syringe) 50 ml IV PRN PRN PRN Reason: Hypoglycemia Digoxin (Lanoxin) 0.25 mg PO Q48H [facility] Last Admin: 07/19/19 12:48 Dose: 0.25 mg Documented by: Diltiazem HCl (Cardizem) 60 mg PO Q6HR [facility] Last Admin: 07/20/19 05:25 Dose: 60 mg Documented by: Enoxaparin Sodium (Lovenox) 100 mg SUB-Q Q12HR [facility] Last Admin: 07/20/19 10:30 Dose: 100 mg Documented by: Famotidine (Pepcid) 10 mg PO BID [facility] Last Admin: 07/20/19 10:30 Dose: 10 mg Documented by: Furosemide (Lasix) 40 mg IV 0600,1800 [facility] Last Admin: 07/20/19 05:24 Dose: 40 mg Documented by: Guaifenesin (Mucinex Er) 600 mg PO BID [facility] Last Admin: 07/20/19 10:30 Dose: 600 mg Documented by: Hydralazine HCl (Apresoline) 20 mg IV Q6H PRN PRN Reason: Hypertension Insulin Glargine (Lantus) 32 units SUB-Q QHS [facility] Last Admin: 07/19/19 22:44 Dose: 32 units Documented by: Insulin Human Regular (Humulin R) 0 units SUB-Q [facility]; Protocol Last Admin: 07/20/19 12:19 Dose: 6 units Documented by: Lidocaine (Xylocaine 1% 20 Ml) 10 ml INFILTRATI PREOP NR Stop: 07/20/19 23:59 Ondansetron HCl (Zofran) 4 mg IV Q8H PRN PRN Reason: Nausea And Vomiting Oxycodone/Acetaminophen (Percocet 5/325) 1 tab PO Q6H PRN PRN Reason: Pain, Moderate (4-6) Last Admin: 07/19/19 14:13 Dose: 1 tab Documented by: Sodium Chloride (Sodium Chloride Flush Syringe 10 Ml) 10 ml IV BID [facility] Last Admin: 07/20/19 10:32 Dose: 10 ml Documented by: Sodium Chloride (Sodium Chloride Flush Syringe 10 Ml) 10 ml IV PRN PRN PRN Reason: LINE FLUSH Spironolactone (Aldactone) 25 mg PO QDAY [facility] Last Admin: 07/20/19 10:32 Dose: 25 mg Documented by: Warfarin Sodium (Coumadin) 5 mg PO DAILY@1700 [facility]; Protocol Physical Examination - Physical exam Narrative exam: morbidly obese female in no distress lying in bed significant musculoskeletal findings limited to left LE at knee No redness/erythema, good passive ROM, tender at medial joint line, + crepitus plain xrays reviewed of the left knee and reveal moderate to severe changes, no fx seen Assessment and Plan left knee pain, secondary to DJD recommend intra-articular depomedrol injection, weight loss
--- NOTE | 2019-07-20 14:50 | Discharge Summary ---
Providers - Providers Date of Admission: 07/10/19 12:56 Attending physician: CRISTINA CARSON 07/10/19 12:56 Consult to Physician [CONS] Urgent Comment: Consulting Provider: CELI JOHNSON Physician Instructions: Reason For Exam: CHF, atrial fibrillation with RVR 07/10/19 14:13 Consult to Physician [CONS] Routine Comment: Consulting Provider: NATALY BOURNE Physician Instructions: Reason For Exam: critical care 07/13/19 15:18 Physical Therapy Evaluation and Treat [CONS] Routine Comment: Reason For Exam: placement 07/18/19 19:00 Consult to Physician [CONS] Routine Comment: Consulting Provider: JESICA CAMPBELL Physician Instructions: Reason For Exam: Severe osteoarthritis Lt Knee 07/19/19 11:39 Consult to Cardiac Rehabilitation [CONS] Routine Reason For Exam: Cardiac Rehab Evaluation Primary care physician: YISSEL CASIANO Hospitalization Reason for admission: Acute hypoxicrespfailure/acute on chronic syst CHF Condition: Stable Pertinent studies: CXR ECHO Knee xray Procedures: Lt knee joint :intra-articular depomedrol injection, weight loss Left heart catheterizationLt Heart Cath Hospital course: 78 y/o female patient admitted via the ED for acute hypoxic respiratory failure. patient could not breathe and she called 911.found to have O2 sats of 82%. Was placed on PPV and transported to the ED. where patient was hypertensive. Patient was on bipap. Patient has a long history of afib was in RVR and was started on dilt drip later transitioned to oral digoxin and cardizem.Evaluated by cardiology,pulmonary critical, managed,UTI,Pneumonia appropriately. Medications optimised.Today patient feels better,no new complaints,vital signs stable,cleared byall consultantsto DC and f/u per schedule.,Stable at discharge. Discharge Diagnosis: --Acute respiratory failure with hypoxia Due to CHF exacerbation Patient is stable enough on 2 L of oxygen. diuresis continue nebulizers. Pulmonology following. pneumonia on Levaquin --Acute exacerbation of congestive heart failure 2-D echo showed EF 35-40% IV diuretics. Beta jaye wasn't tolerable, ACEI on hold for hyperkalemia symptoms improved --Severe right knee osteoarthritis; seen by ortho,s/pintra articular steroid injection and f/u ortho upon discharge --Moderate mitral valve stenosis Echocardiogram thickened and calcified mitral valve leaflet and mitral valve apparatus, with restricted leaflet opening and Doppler mean gradient of greater than 5 mmHg. Findings are consistent with at least moderate mitral stenosis. s/p Right and left heart catheterization on 07/19/2019 --Atrial fibrillation with RVR Rate controlled s/p Cardizem drip on oral Cardizem and digoxin on warfarin --Supratherapeutic INR,POA resolved now subtherapeutic --Terrence on Possible CKD, Cr ~15-1.3 likely diabetic nephropathy con to monitor her --UTI, continue s/p Levaquin for 5 days --Right middle lobe pulmonary infiltrate Patient with hazy infiltrate in right lower lobe suspected right lower lobe pneumonia. Received Levaquin --T2DM (type 2 diabetes mellitus) currently Accu-Cheks bg within normal limits. cont insulin Lantus 25 units daily at bedtime. A1c 6.5 --DVT prophylaxis Continue prophylaxis Lovenox. Discharge on lovenox and coumadin bridge till INR is therapeutic Disposition: [id number] HOME UNDER HOME [facility] Time spent for discharge: 32 min Core Measure Documentation - Palliative Care Palliative Care/ Comfort Measures: Not Applicable - Core Measures Any of the following diagnoses?: none Exam - Constitutional Vitals: Temp Pulse Resp BP Pulse Ox 98.2 F 64 18 138/77 94 07/20/19 12:37 07/20/19 12:37 07/20/19 12:37 07/20/19 12:37 07/20/19 12:37 General appearance: Present: no acute distress, well-nourished, obese - EENT Eyes: Present: PERRL, EOM intact - Neck Neck: Present: supple, normal ROM - Respiratory Respiratory effort: normal Respiratory: bilateral: diminished, rales, negative: rhonchi, wheezing - Cardiovascular Rhythm: regular Heart Sounds: Present: S1 & S2 - Extremities Extremities: no ischemia Extremity abnormal: edema - Abdominal General gastrointestinal: Present: soft, non-tender, non-distended, normal bowel sounds - Integumentary Integumentary: Present: clear, warm - Musculoskeletal Musculoskeletal: generalized weakness - Psychiatric Psychiatric: appropriate mood/affect, cooperative - Neurologic Neurologic: moves all extremities Plan Activity: advance as tolerated, fall precautions Diet: other (cardiac diet) Special Instructions: hold Metformin (Today and tomorrow and resume on 07/22/2019 if needed) Additional Instructions: Patient refused home health. Next INR in 3 to 4 days at PMD/cardiology office[ target INR 2-3]. Advised to f/u private shuttle fitting supervisor andpulmonologist perschedule Follow up with: RICKY LEO MD [Referring] - 3-5 Days SYDNEY HENRIQUEZ MD [Staff Physician] - 7 Days NATALY BOURNE MD [Staff Physician] - 7 Days JESICA CAMPBELL MD [Staff Physician] - 7 Days Forms: CardCat PCI D/C Instructions, Warfarin Discharge Instruction Prescriptions: Spironolactone [Aldactone] 25 mg PO QDAY #30 tablet Diltiazem HCl [Cardizem LA] 240 mg PO DAILY #30 tab.er.24h Furosemide [Lasix TAB] 20 mg PO QDAY #30 Enoxaparin [Lovenox] 150 mg SQ QDAY #7 syringe guaiFENesin ER [Mucinex ER] 600 mg PO BID #30 tablet Famotidine [Pepcid] 10 mg PO BID #60 tablet
[2019-07-20] MEDS ORDERED: WARFARIN 5 MG TAB PO SCH (17:00)
[2019-07-20 17:19] VITALS: BP 145/60
== END 2019-07-20 19:06 | disposition home health service (06) | DRG 871 ==
LOC: ED 11:11 → CC1 12:56 → 4A 07-11 17:49
PROVIDERS: ADMIT Internal Medicine; ATTEND Internal Medicine
PROC: 4A033R1 Measurement of Arterial Saturation, Peripheral, Percutaneous Approach (ICD-10-PCS; 2019-07-10)
PROC: 5A09357 Assistance with Respiratory Ventilation, Less than 24 Consecutive Hours, Continuous Positive Airway Pressure (ICD-10-PCS; 2019-07-10)
PROC: 5A09357 Assistance with Respiratory Ventilation, Less than 24 Consecutive Hours, Continuous Positive Airway Pressure (ICD-10-PCS; 2019-07-11)
PROC: 5A09357 Assistance with Respiratory Ventilation, Less than 24 Consecutive Hours, Continuous Positive Airway Pressure (ICD-10-PCS; 2019-07-14)
PROC: 4A023N8 Measurement of Cardiac Sampling and Pressure, Bilateral, Percutaneous Approach (ICD-10-PCS; principal; 2019-07-19)
PROC: B2111ZZ Fluoroscopy of Multiple Coronary Arteries using Low Osmolar Contrast (ICD-10-PCS; 2019-07-19)
PROC: B2151ZZ Fluoroscopy of Left Heart using Low Osmolar Contrast (ICD-10-PCS; 2019-07-19)
DX: A41.9 Sepsis, unspecified organism (principal); I50.43 Acute on chronic combined systolic (congestive) and diastolic (congestive) heart failure; J96.01 Acute respiratory failure with hypoxia; J18.9 Pneumonia, unspecified organism; I48.20 Chronic atrial fibrillation, unspecified; N39.0 Urinary tract infection, site not specified; N17.9 Acute kidney failure, unspecified; I42.0 Dilated cardiomyopathy; E11.65 Type 2 diabetes mellitus with hyperglycemia; G47.33 Obstructive sleep apnea (adult) (pediatric); I05.0 Rheumatic mitral stenosis; I27.20 Pulmonary hypertension, unspecified; E66.01 Morbid (severe) obesity due to excess calories; D64.9 Anemia, unspecified; M17.12 Unilateral primary osteoarthritis, left knee; R79.89 Other specified abnormal findings of blood chemistry; Z87.891 Personal history of nicotine dependence; Z90.13 Acquired absence of bilateral breasts and nipples; Z82.49 Family history of ischemic heart disease and other diseases of the circulatory system; Z88.5 Allergy status to narcotic agent; Z88.0 Allergy status to penicillin; Z79.4 Long term (current) use of insulin; Z79.01 Long term (current) use of anticoagulants; Z79.84 Long term (current) use of oral hypoglycemic drugs; Z68.39 Body mass index [BMI] 39.0-39.9, adult
CPT/HCPCS: 36415; 71045; 80048; 80053; 80076; 81001; 82140; 82550; 82553; 82803; 82805; 82962; 83036; 83735; 83880; 84484; 85007; 85025; 85027; 85610; 85730; 86850; 86900; 86901; 87040; 87076; 87086; 87186; 93005; 93010; 93306; 93460; 94640; 94760; 96365; 96375; 99292; G0378; C1760; C1769; C1894; J0282; J0456; J0692; J1040; J1644; J1650; J1815; J1940; J2185; J2250; J2930; J3010; J7030; J7040; J7050; Q9967

== ENCOUNTER 2019-08-25 17:54 | Emergency (ER) | payer MEDICARE, OTHER ==
--- NOTE | 2019-08-25 18:01 | Emergency Department Report ---
Blank Doc - Documentation Documentation: 78-year-old female that was sent by PCP for low H/H. This initial assessment/diagnostic orders/clinical plan/treatment(s) is/are subject to change based on patient's health status, clinical progression and re- assessment by fellow clinical providers in the ED. Further treatment and workup at subsequent clinical providers discretion. Patient/guardians urged not to elope from the ED as their condition may be serious if not clinically assessed and managed. Initial orders include: 1- Patient sent to MAIN for further evaluation and treatment 2- labs
[2019-08-25 18:31] LABS: Basophils # (Auto) 0.1 K/mm3 (0.0-0.1); Basophils % (Auto) 1.1 % (0.0-1.8); Eosinophils # (Auto) 0.1 K/mm3 (0.0-0.4); Eosinophils % (Auto) 1.5 % (0.0-4.3); Hematocrit 24.6 % (30.3-42.9); Hemoglobin 8.4 gm/dl (10.1-14.3); Lymphocytes # (Auto) 0.7 K/mm3 (1.2-5.4); Lymphocytes % (Auto) 10.9 % (13.4-35.0); Mean Corpuscular HGB Conc 34 % (30-34); Mean Corpuscular Volume 85 fl (79-97); Monocytes # (Auto) 0.6 K/mm3 (0.0-0.8); Monocytes % (Auto) 9.5 % (0.0-7.3); Platelet Count 175 K/mm3 (140-440); Red Cell Distribution Width 18.4 % (13.2-15.2)
--- NOTE | 2019-08-25 18:39 | XRay Report ---
ABDOMEN 3 views, 08/25/2019 INDICATION: CHEST PAIN FINDINGS: Heart is enlarged. 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 There is no radiographic evidence of obstruction. No free air is seen. IMPRESSION: No acute disease Signer Name: Viet Ye MD Signed: 08/25/2019 6:34 PM Workstation Name: [id number]
[2019-08-25 18:41] LABS: INR 2.82 (0.87-1.13)
[2019-08-25 18:43] LABS: Partial Thromboplastin Time 38.6 Sec. (24.2-36.6)
[2019-08-25 19:35] LABS: Albumin 3.8 g/dL (3.9-5); Calcium 9.7 mg/dL (8.4-10.2)
--- NOTE | 2019-08-25 21:32 | Emergency Department Report ---
ED General Adult HPI - General Chief complaint: Recheck/Abnormal Lab/Rx Stated complaint: SENT BY FOR HEMOGLOBIN Time Seen by Provider: 08/25/19 18:00 Source: patient, RN notes reviewed, old records reviewed Mode of arrival: Ambulatory Limitations: No Limitations - History of Present Illness Initial comments: This is a pleasant 78-year-old female. The patient typically follows with outpatient primary care doctor, Dr. Casiano Her past medical history includes congestive heart failure, atrial fibrillation on Coumadin therapy, ejection fraction 45%, arthritis, on Coumadin therapy, history of renal insufficiency and type 2 diabetes She reports that she was seen by her primary care doctor yesterday, who apparently adrien some routine outpatient laboratory studies. Her hemoglobin was reported to be 7.7, and her primary care doctor recommended she presents to the emergency room for evaluation. The patient has no complaints at this time. She indicates that if not advised by her primary care doctor to present to the emergency room, she would not have presented. She denies headache, neck pain, chest pain, abdominal pain, bright red blood per rectum, and black tarry stool. She has chronic lower extremity swelling. She has chronic shortness of breath, however, she reports that she felt improved today when compared to baseline, and that she was able to walk around the house without significant difficulty, and she even wash the dishes. -: unknown Radiation: other Quality: other Consistency: other Improves with: other Worsens with: other - Related Data Home Medications Medication Instructions Recorded Confirmed Last Taken Calcium + Vitamin D3 Gummies 1 tab PO QDAY 07/10/19 07/10/19 Unknown Digoxin [Lanoxin] 0.25 mg PO DAILY 07/10/19 07/10/19 Unknown Insulin Glargine,Hum.rec.anlog 35 unit SQ QDAY 07/10/19 07/10/19 Unknown [Lantus Solostar] Multivitamin 1 tab PO QDAY 07/10/19 07/10/19 Unknown Olmesartan (Nf) 2 tab QDAY 07/10/19 07/10/19 Unknown Potassium Chloride [K-Dur] 1 tab PO QDAY 07/10/19 07/10/19 Unknown Warfarin [Coumadin] 5 mg PO QDAY 07/10/19 07/10/19 Unknown Warfarin [Coumadin] 7.5 mg PO QDAY 07/10/19 07/10/19 Unknown traMADoL [Ultram 50 MG tab] 50 mg PO Q12HR PRN 07/10/19 07/10/19 Unknown Previous Rx's Medication Instructions Recorded Last Taken Type Diltiazem HCl [Cardizem LA] 240 mg PO DAILY #30 tab.er.24h 07/20/19 Unknown Rx Enoxaparin [Lovenox] 150 mg SQ QDAY #7 syringe 07/20/19 Unknown Rx Famotidine [Pepcid] 10 mg PO BID #60 tablet 07/20/19 Unknown Rx Furosemide [Lasix TAB] 20 mg PO QDAY #30 07/20/19 Unknown Rx Spironolactone [Aldactone] 25 mg PO QDAY #30 tablet 07/20/19 Unknown Rx guaiFENesin ER [Mucinex ER] 600 mg PO BID #30 tablet 07/20/19 Unknown Rx Allergies Allergy/AdvReac Type Severity Reaction Status Date / Time meperidine [From Demerol] Allergy Anaphylaxis Verified 07/10/19 12:26 Penicillins Allergy Anaphylaxis Verified 07/10/19 12:25 ED Review of Systems ROS: Stated complaint: SENT BY DR FOR HEMOGLOBIN Other details as noted in HPI Constitutional: see HPI. denies: fever Eyes: as per HPI ENT: as per HPI Respiratory: shortness of breath (chronic) Cardiovascular: edema (chronic) Gastrointestinal: denies: hematemesis, melena, hematochezia Genitourinary: denies: dysuria Neurological: denies: weakness Hematological/Lymphatic: denies: easy bleeding ED Past Medical Hx - Past Medical History Previous Medical History?: Yes Hx Hypertension: Yes Hx Congestive Heart Failure: Yes Hx Diabetes: Yes Additional medical history: Atrial fibrillation. Family thinks the breast cancer has not spread. No history of prior intubation except for surgery. - Surgical History Past Surgical History?: Yes Hx Cholecystectomy: Yes Additional Surgical History: right hip replace,doublr mastectomy 1999,2011 - Social History Smoking Status: Never Smoker Substance Use Type: None - Medications Home Medications: Home Medications Medication Instructions Recorded Confirmed Last Taken Type Calcium + Vitamin D3 Gummies 1 tab PO QDAY 07/10/19 07/10/19 Unknown History Digoxin [Lanoxin] 0.25 mg PO DAILY 07/10/19 07/10/19 Unknown History Insulin Glargine,Hum.rec.anlog 35 unit SQ QDAY 07/10/19 07/10/19 Unknown History [Lantus Solostar] Multivitamin 1 tab PO QDAY 07/10/19 07/10/19 Unknown History Olmesartan (Nf) 2 tab QDAY 07/10/19 07/10/19 Unknown History Potassium Chloride [K-Dur] 1 tab PO QDAY 07/10/19 07/10/19 Unknown History Warfarin [Coumadin] 5 mg PO QDAY 07/10/19 07/10/19 Unknown History Warfarin [Coumadin] 7.5 mg PO QDAY 07/10/19 07/10/19 Unknown History traMADoL [Ultram 50 MG tab] 50 mg PO Q12HR PRN 07/10/19 07/10/19 Unknown History Diltiazem HCl [Cardizem LA] 240 mg PO DAILY #30 tab.er.24h 07/20/19 Unknown Rx Enoxaparin [Lovenox] 150 mg SQ QDAY #7 syringe 07/20/19 Unknown Rx Famotidine [Pepcid] 10 mg PO BID #60 tablet 07/20/19 Unknown Rx Furosemide [Lasix TAB] 20 mg PO QDAY #30 07/20/19 Unknown Rx Spironolactone [Aldactone] 25 mg PO QDAY #30 tablet 07/20/19 Unknown Rx guaiFENesin ER [Mucinex ER] 600 mg PO BID #30 tablet 07/20/19 Unknown Rx ED Physical Exam - General Limitations: No Limitations General appearance: alert, in no apparent distress - Head Head exam: Present: atraumatic, normocephalic - Eye Eye exam: Present: normal appearance, EOMI. Absent: nystagmus - ENT ENT exam: Present: normal exam, normal orophraynx, mucous membranes moist, normal external ear exam - Neck Neck exam: Present: normal inspection, full ROM. Absent: tenderness, menin gismus - Respiratory Respiratory exam: Present: normal lung sounds bilaterally. Absent: respiratory distress, wheezes, rales, rhonchi, stridor - Cardiovascular Cardiovascular Exam: Present: normal rhythm, irregular rhythm, normal heart sounds. Absent: systolic murmur, diastolic murmur, rubs, gallop - GI/Abdominal GI/Abdominal exam: Present: soft. Absent: distended, tenderness, guarding, rebound, rigid, pulsatile mass - Extremities Exam Extremities exam: Present: normal inspection, full ROM, pedal edema, other (2+ pulses noted in the bilateral upper extremities. There is no palpable cord. There is a negative Homans sign.). Absent: calf tenderness - Back Exam Back exam: Present: normal inspection. Absent: tenderness, CVA tenderness (R), CVA tenderness (L), paraspinal tenderness, vertebral tenderness - Neurological Exam Neurological exam: Present: alert, normal gait (the patient walks with a cane), other (there is no facial droop. The tongue is midline. Extraocular movements are intact bilaterally. Patient speaking in full complete sentences. Shoulder shrug is intact bilaterally. Hearing is grossly intact bilaterally. Visual acuity intact to finger counting and color perception at a close distance. 5/5 strength 4 extremities. Sensation intact to light touch in 4 extremities.) - Psychiatric Psychiatric exam: Present: normal affect, normal mood - Skin Skin exam: Present: warm, dry, intact, normal color. Absent: rash ED Course Vital Signs 08/25/19 08/25/19 08/25/19 18:01 20:50 21:01 Temperature 98.2 F Pulse Rate 75 75 Respiratory 18 26 H 19 Rate Blood Pressure 164/41 156/51 O2 Sat by Pulse 96 97 Oximetry 08/25/19 21:15 Temperature Pulse Rate 81 Respiratory 29 H Rate Blood Pressure 152/50 O2 Sat by Pulse 97 Oximetry ED Medical Decision Making - Lab Data Result diagrams: 08/25/19 18:17 08/25/19 18:17 Vital Signs 08/25/19 08/25/19 08/25/19 18:01 20:50 21:01 Temperature 98.2 F Pulse Rate 75 75 Respiratory 18 26 H 19 Rate Blood Pressure 164/41 156/51 O2 Sat by Pulse 96 97 Oximetry 08/25/19 21:15 Temperature Pulse Rate 81 Respiratory 29 H Rate Blood Pressure 152/50 O2 Sat by Pulse 97 Oximetry Lab Results 08/25/19 08/25/19 08/25/19 Range/Units 18:17 18:17 18:17 WBC 6.4 (4.5-11.0) K/mm3 RBC 2.90 L (3.65-5.03) M/mm3 Hgb 8.4 L (10.1-14.3) gm/dl Hct 24.6 L (30.3-42.9) % MCV 85 (79-97) fl MCH 29 (28-32) pg MCHC 34 (30-34) % RDW 18.4 H (13.2-15.2) % Plt Count 175 (140-440) K/mm3 Lymph % (Auto) 10.9 L (13.4-35.0) % Bradford % (Auto) 9.5 H (0.0-7.3) % Eos % (Auto) 1.5 (0.0-4.3) % Baso % (Auto) 1.1 (0.0-1.8) % Lymph # 0.7 L (1.2-5.4) K/mm3 Bradford # 0.6 (0.0-0.8) K/mm3 Eos # 0.1 (0.0-0.4) K/mm3 Baso # 0.1 (0.0-0.1) K/mm3 Seg Neutrophils % 77.0 H (40.0-70.0) % Seg Neutrophils # 4.9 (1.8-7.7) K/mm3 PT 29.1 H (12.2-14.9) Sec. INR 2.82 H (0.87-1.13) APTT 38.6 H (24.2-36.6) Sec. Sodium 135 L (137-145) mmol/L Potassium 4.6 (3.6-5.0) mmol/L Chloride 97.1 L (98-107) mmol/L Carbon Dioxide 18 L (22-30) mmol/L Anion Gap 25 mmol/L BUN 23 H (7-17) mg/dL Creatinine 1.3 H (0.7-1.2) mg/dL Estimated GFR 40 ml/min BUN/Creatinine Ratio 18 % Glucose 250 H (65-100) mg/dL Calcium 9.7 (8.4-10.2) mg/dL Total Bilirubin 0.60 (0.1-1.2) mg/dL AST 21 (5-40) units/L ALT 16 (7-56) units/L Alkaline Phosphatase 105 (35-129) units/L Total Protein 8.3 H (6.3-8.2) g/dL Albumin 3.8 L (3.9-5) g/dL Albumin/Globulin Ratio 0.8 % - Radiology Data Radiology results: report reviewed, image reviewed Prior imaging studies reviewed, cardiac catheterization is reviewed - Medical Decision Making Differential diagnosis, including not limited to: Anemia, chronic, general medical screening exam Assessment and plan: 78-year-old female who is referred to the emergency room by her primary care doctor for incidental and asymptomatic outpatient laboratory values hemoglobin of 7.7. The patient is afebrile with reassuring vital signs, and is not in any acute distress. Today, hemoglobin is found to be 8.4, hematocrit 24.6, laboratory studies appear to be at baseline when compared to prior laboratory studies. The patient denies having black stool and bright red blood per rectum. We offered the patient a rectal exam, however, she declined. The patient does not appear to have an emergent medical condition at this time. Had an extensive discussion with patient and daughter, who articulate that they are ready for discharge. Patient can continue current outpatient medications, and she can follow-up with her outpatient primary care doctor. Critical care attestation.: If time is entered above; I have spent that time in minutes in the direct care of this critically ill patient, excluding procedure time. ED Disposition Clinical Impression: General medical exam Disposition: [id number] TO HOME OR SELFCARE Is pt being admited?: No Does the pt Need Aspirin: No Condition: Good Additional Instructions: Please continue current outpatient medications. Follow-up with your primary care doctor within the next 2 weeks. Follow-up with your preform plate maker as scheduled. Return to the emergency room right away with new, worsened, different symptoms, or symptoms not present on the initial emergency room evaluation. Return to emergency room right away with black stool, vomiting blood, defecating blood. Avoid consumption of Motrin, ibuprofen, Naprosyn, Aleve. Referrals: YISSEL CASIANO MD [Staff Physician] - 3-5 Days
[2019-08-25 21:52] VITALS: BP 139/46
== END 2019-08-25 21:52 | disposition home or self-care (01) ==
LOC: ED 17:54
DX: D64.9 Anemia, unspecified (principal); R06.02 Shortness of breath; I11.0 Hypertensive heart disease with heart failure; I50.9 Heart failure, unspecified; E11.9 Type 2 diabetes mellitus without complications; Z90.49 Acquired absence of other specified parts of digestive tract; Z98.890 Other specified postprocedural states; Z79.899 Other long term (current) drug therapy; Z88.0 Allergy status to penicillin; Z88.5 Allergy status to narcotic agent; Z79.4 Long term (current) use of insulin
CPT/HCPCS: 36415; 74022; 80053; 85025; 85610; 85730